=== PATIENT | female | born 1965 | race Two or more races ===

== ENCOUNTER 2020-07-17 09:46 | Outpatient (REF) | payer OTHER, SELFPAY | END 2020-07-17 09:47 | disposition home or self-care (01) | LOC: HO.MDS 09:46 | PROVIDERS: PCP Internal Medicine; Visit Provider Hospitalist | DX: J45.40 Moderate persistent asthma, uncomplicated (principal) | CPT/HCPCS: 96372 ==

== ENCOUNTER 2020-08-15 10:46 | Outpatient (REF) | payer OTHER, SELFPAY | END 2020-08-15 10:47 | disposition home or self-care (01) | LOC: HO.MDS 10:46 | PROVIDERS: PCP Internal Medicine; Visit Provider Hospitalist | DX: J45.909 Unspecified asthma, uncomplicated (principal) | CPT/HCPCS: 96372; J2357 ==

== ENCOUNTER 2020-09-12 | Outpatient (REF) | payer OTHER, SELFPAY | END 2020-09-12 00:01 | disposition home or self-care (01) | LOC: HO.MDS | PROVIDERS: PCP Internal Medicine; Visit Provider Hospitalist | DX: J45.40 Moderate persistent asthma, uncomplicated (principal) | CPT/HCPCS: 96372; J2357 ==

== ENCOUNTER → 2020-09-19 12:55 | Outpatient (BNVA) | payer OTHER, SELFPAY | PROVIDERS: PCP Internal Medicine; Referring Provider Internal Medicine; Visit Provider Hospitalist | DX: J45.40 Moderate persistent asthma, uncomplicated (principal); J30.9 Allergic rhinitis, unspecified; R05 Cough | CPT/HCPCS: 99212 ==

== ENCOUNTER 2020-10-17 13:44 | Outpatient (REF) | payer OTHER, SELFPAY | END 2020-10-17 13:45 | disposition home or self-care (01) | LOC: HO.MDS 13:44 | PROVIDERS: PCP Internal Medicine; Visit Provider Hospitalist | DX: J45.40 Moderate persistent asthma, uncomplicated (principal) | CPT/HCPCS: 96372; J2357 ==

== ENCOUNTER 2020-11-14 12:49 | Outpatient (REF) | payer OTHER, SELFPAY | END 2020-11-14 12:50 | disposition home or self-care (01) | LOC: HO.MDS 12:49 | PROVIDERS: PCP Internal Medicine; Visit Provider Hospitalist | DX: J45.40 Moderate persistent asthma, uncomplicated (principal) | CPT/HCPCS: 96372; J2357 ==

== ENCOUNTER 2020-12-12 13:11 | Outpatient (REF) | payer OTHER, SELFPAY | END 2020-12-12 13:12 | disposition home or self-care (01) | LOC: HO.MDS 13:11 | PROVIDERS: PCP Internal Medicine; Visit Provider Hospitalist | DX: J45.40 Moderate persistent asthma, uncomplicated (principal) | CPT/HCPCS: 96372; J2357 ==

== ENCOUNTER 2021-01-09 12:49 | Outpatient (REF) | payer OTHER, SELFPAY | END 2021-01-09 12:50 | disposition home or self-care (01) | LOC: HO.MDS 12:49 | PROVIDERS: PCP Internal Medicine; Visit Provider Hospitalist | DX: J45.40 Moderate persistent asthma, uncomplicated (principal) | CPT/HCPCS: 96372; J2357 ==

== ENCOUNTER 2021-01-19 07:10 | Outpatient (REF) | payer OTHER, SELFPAY ==
[2021-01-19 08:56] LABS: Alanine Aminotransferase 48 U/L (0-31); Albumin Level 4.2 g/dL (3.5-5.0); Alkaline Phosphatase 100 U/L (39-117); Anion Gap 13 (12-20); Aspartate Amino Transferase 25 U/L (5-31); Bilirubin Total 0.3 mg/dL (0.0-1.0); Blood Urea Nitrogen 14 mg/dL (9-16); Calcium 8.8 mg/dL (8.4-10.2); Carbon Dioxide 26 mmol/L (22-29); Chloride 105 mmol/L (96-108); Cholesterol 241 mg/dL; Estimated Glomerular Filt Rate 60; Glucose Fasting 113 mg/dL (60-99); HDL Cholesterol 39 mg/dL; LDL Cholesterol Calculated 165 mg/dl; Potassium 4.4 mmol/L (3.3-5.1); Sodium 140 mmol/L (135-145); Total Protein 7.2 g/dL (6.5-8.0); Triglycerides 186 mg/dL
== END 2021-01-19 07:11 | disposition home or self-care (01) ==
LOC: HO.LAB 07:10
PROVIDERS: PCP Internal Medicine; Visit Provider Internal Medicine
DX: E78.2 Mixed hyperlipidemia (principal); E78.5 Hyperlipidemia, unspecified
CPT/HCPCS: 36415; 80053; 80061

== ENCOUNTER → 2021-01-22 12:58 | Outpatient (BNVA) | payer OTHER, SELFPAY | PROVIDERS: PCP Internal Medicine; Visit Provider Hospitalist | DX: J45.50 Severe persistent asthma, uncomplicated (principal); R05 Cough; J30.9 Allergic rhinitis, unspecified | CPT/HCPCS: 99212 ==

== ENCOUNTER 2021-02-06 12:51 | Outpatient (REF) | payer OTHER, SELFPAY | END 2021-02-06 12:52 | disposition home or self-care (01) | LOC: HO.MDS 12:51 | PROVIDERS: PCP Internal Medicine; Visit Provider Hospitalist | DX: J45.40 Moderate persistent asthma, uncomplicated (principal) | CPT/HCPCS: 96372; J2357 ==

== ENCOUNTER 2021-03-06 12:56 | Outpatient (REF) | payer OTHER, SELFPAY | END 2021-03-06 12:57 | disposition home or self-care (01) | LOC: HO.MDS 12:56 | PROVIDERS: PCP Internal Medicine; Visit Provider Hospitalist | DX: J45.40 Moderate persistent asthma, uncomplicated (principal) | CPT/HCPCS: 96372; J2357 ==

== ENCOUNTER 2021-03-13 10:09 | Outpatient (REF) | payer OTHER, SELFPAY ==
--- NOTE | ~2021-03-13 | XR_ITS ---
EXAMINATION: XR CHEST CLINICAL INFORMATION: Cough COMPARISON: 05/27/2019 TECHNIQUE: 2 views of the chest were obtained. FINDINGS: Normal symmetric lung volumes. No parenchymal consolidation. No pleural effusion. No pneumothorax. Cardiomediastinal silhouette and pulmonary vascularity are within normal limits. No acute osseous abnormalities. XR/XR chest 2V IMPRESSION: Unremarkable examination.
[2021-03-13 11:30] LABS: MANUAL DIFF FLAG NO
[2021-03-13 11:42] LABS: Basophils Absolute Auto 0.1 X10*3/uL (0.0-0.2); Basophils Percent Auto 1.4 % (0-2); Eosinophils Absolute Auto 0.7 X10*3/uL (0.0-0.4); Eosinophils Percent Auto 8.2 % (0-4); Hemoglobin 13.4 g/dl (12.0-16.0); Imm Gran Abs Auto 0.02 X10*3/uL (0.00-0.03); Imm Gran Pct Auto 0.2 % (0.0-0.4); Lymphocytes Absolute Auto 3.8 X10*3/uL (1.2-4.9); Lymphocytes Percent Auto 47.6 % (20-40); Mean Corpuscular HGB Conc 32.7 g/dl (31.0-35.0); Mean Corpuscular Hemoglobin 29.5 pg (27.0-33.0); Mean Corpuscular Volume 90.3 fL (80-98); Mean Platelet Volume 9.6 fL (9.4-12.3); Monocytes Absolute Auto 0.5 X10*3/uL (0.1-1.2); Monocytes Percent Auto 6.5 % (2-11); Neutrophils Absolute Auto 2.9 X10*3/uL (2.0-8.3); Neutrophils Percent Auto 36.1 % (45-73); Platelet Count 301 X10*3/uL (160-400); Red Blood Count 4.54 X10*6/uL (4.20-5.50)
[2021-03-13 12:25] LABS: Erythrocyte Sedimentation Rate 16 MM/HR (0-20)
[2021-03-17 19:12] LABS: IgA 203 mg/dL (47-310); IgG 1401 mg/dL (600-1640); IgM 69 mg/dL (50-300)
[2021-03-18 05:42] LABS: Immunoglobulin E 412 kU/L (<OR=114)
== END 2021-03-13 10:10 | disposition home or self-care (01) ==
LOC: HO.XRAY 10:09
PROVIDERS: PCP Internal Medicine; Visit Provider Hospitalist
DX: J45.51 Severe persistent asthma with (acute) exacerbation (principal); J30.9 Allergic rhinitis, unspecified; Z79.899 Other long term (current) drug therapy
CPT/HCPCS: 36415; 71046; 82784; 82785; 85025; 85652; 99212

== ENCOUNTER 2021-03-22 10:29 | Emergency (ER) | payer OTHER, SELFPAY ==
--- NOTE | ~2021-03-22 | XR_ITS ---
EXAMINATION: XR CHEST CLINICAL INFORMATION: Cough. History of asthma COMPARISON: Chest 03/13/2021 TECHNIQUE: Frontal view of the chest was obtained. FINDINGS: No significant abnormality is noted involving the heart, lungs, mediastinum, bony thorax or soft tissues. XR/XR chest 1V IMPRESSION: Unremarkable chest examination.
[2021-03-22 11:12] VITALS: BP 136/95; PULSE 92; RESP 18; TEMP 36.6; O2SAT 97; BMI 28.1
--- NOTE | 2021-03-22 11:17 | ECG_ITS ---
Test Reason : CHEST PAIN Blood Pressure : / mmHG Vent. Rate : 066 BPM Atrial Rate : 066 BPM P-R Int : 148 ms QRS Dur : 082 ms QT Int : 404 ms P-R-T Axes : 031 013 032 degrees QTc Int : 423 ms Normal sinus rhythm Normal ECG When compared with ECG of 27-MAY-2019 21:58, No significant change was found Referred By: Generic ED Physician Electronically Signed By:JOSE JOHN
--- NOTE | 2021-03-22 11:34 | ED_ITS ---
HPI - Chest Pain General Chief Complaint: Chest Pain Stated Complaint: chest pain for 3 days Time Seen by Provider: 03/22/21 11:23 Source: patient Mode of arrival: ambulatory Limitations: no limitations History of Present Illness HPI narrative: 55 y/o female with history of moderate persistent asthma, allergies, anxiety, depression presenting with burning chest pain for the last 1 week. It occurs mostly at night when she lays down and after she eats. It starts in her chest and radiates up into her neck and throat. She has never had pain like this before. She tried TUMS with no relief. She also reports increased dry cough at night. She has had chills but no fevers. No N/V/D or abdominal pain. No SOB. She was recently seen by Dr. Carbajal, her Mechanical Designer on 03/13, and she was reporting similar symptoms at that time. She was started on Prednisone taper and Augmentin for asthma exacerbation. MD complaint: chest pain Pertinent past history: asthma Onset (ago): day(s) Timing of current episode: episodic Prior episodes: No Onset: after eating Pain location: substernal Related Data Home Medications Medication Instructions Recorded Confirmed buspirone 10 mg tablet 10 mg PO TID 09/01/20 03/13/21 fluticasone propionate 110 INHALATION 09/01/20 03/13/21 mcg/actuation HFA aerosol inhaler fluticasone propionate 50 1 spray INTRANASAL DAILY 09/01/20 03/13/21 mcg/actuation nasal spray,suspension omalizumab 150 mg/mL subcutaneous mg SUBCUT Q4W 09/01/20 03/13/21 syringe topiramate 50 mg tablet 50 mg PO BID 09/01/20 03/13/21 albuterol sulfate mg INHALATION Q8H PRN 09/19/20 03/13/21 cetirizine 10 mg tablet mg PO 09/19/20 03/13/21 montelukast 10 mg tablet 10 mg PO DAILY 09/19/20 03/13/21 sumatriptan succinate 50 mg tablet mg PO 09/19/20 03/13/21 umeclidinium 62.5 mcg/actuation INHALATION 09/19/20 03/13/21 blister powder for inhalation amitriptyline 25 mg tablet 75 mg PO BEDTIME tab 12/16/20 03/13/21 escitalopram oxalate 10 mg tablet 20 mg PO DAILY tab 12/16/20 03/13/21 Previous Rx's Medication Instructions Recorded epinephrine 0.3 mg/0.3 mL 0.3 mg IM Q10M PRN 30 Days #2 ea 09/19/20 injection, auto-injector fluticasone fur. 200 mcg-umeclid 1 inh INHALATION DAILY 30 Days #60 01/22/21 62.5 mcg-vilant 25 mcg ea inhalat.powder azithromycin 500 mg tablet 500 mg PO DAILY 3 Days #3 tab 02/05/21 prednisone 20 mg tablet 20 mg PO DAILY 10 Days #15 tab 02/05/21 amoxicillin 875 mg-potassium 1 tab PO BID 10 Days #20 tab 03/13/21 clavulanate 125 mg tablet fluticasone furoate 200 1 inh INHALATION DAILY 30 Days #60 03/13/21 mcg-vilanterol 25 mcg/dose ea inhalation powder prednisone 20 mg tablet 20 mg PO DAILY 10 Days #15 tab 03/13/21 prednisone 20 mg tablet 20 mg PO DAILY 10 Days #15 tab 03/13/21 doxycycline hyclate 100 mg capsule 100 mg PO BID 10 Days #20 cap 03/16/21 dupilumab 300 mg/2 mL subcutaneous 300 mg SUBCUT Q2W 365 Days #56 ml 03/18/21 syringe pantoprazole [Protonix] 40 mg PO DAILY #30 tab 03/22/21 Allergies Allergy/AdvReac Type Severity Reaction Status Date / Time hydroxyzine [HYDROXYZINE] Allergy Unknown THROAT Verified 03/13/21 10:30 TIGHT , dry mouth Penicillins [PENICILLINS] Allergy Unknown RASH Verified 03/13/21 10:30 pollen extracts [POLLEN] Allergy Unknown THROAT Verified 03/13/21 10:30 GETS ITCHY tramadol Allergy Unknown sleepiness Verified 03/13/21 10:30 Review of Systems Review of Systems: Constitutional: No Fever, + Chills ENT/Mouth: No sore throat, No Rhinorrhea, No Swallowing Difficulty Eyes: No Eye Pain, No Swelling, No Redness Cardiovascular: + Chest Pain, No SOB, No Orthopnea, No Edema Respiratory: + Cough, No Sputum, No Wheezing, No dyspnea Gastrointestinal: No Nausea, No Vomiting, No Diarrhea, No abdominal Pain, No Hematochezia, No Melena Genitourinary: No Dysuria, No Urinary Frequency, No Hematuria Musculoskeletal: No joint pain, No Myalgias Skin: No Skin Lesions, No rash Neuro: No Weakness, No Numbness, No Dizziness, No Headache Psych: No Anxiety/Panic, No Depression Heme/Lymph: No Bruising, No Lymphadenopathy Endocrine: No Polyuria, No Polydipsia [facility] Past Medical History Attestation statement: The following information was validated with the patient. Medical History Asthma Chronic allergic rhinitis Cough Depression with anxiety Mixed hyperlipidemia Moderate persistent asthma Surgical History History of removal of cyst Family History Family History Father CAD (coronary artery disease) Mother Chronic mental illness Stroke Paternal Grandmother Cancer Paternal Aunt Liver cancer Sister Multiple sclerosis Brother ALS (amyotrophic lateral sclerosis) Sister Schizophrenia Family/Other FH: mental illness Social History Social History (Updated 03/13/21 @ 10:24 by Alice Wynn MA) Alcohol intake: never Patient Tobacco Use Status: Never used Tobacco Use of substances other than those prescribed or required for medical reasons: No Advance Directives: Yes Advance Directives Information Provided: Yes Advance Directives on File: No Patient : No Physical Exam Vital Signs: Vital Signs: Last Vital Signs Temp 97.9 F 03/22/21 11:12 Pulse 73 03/22/21 11:58 Resp 18 03/22/21 11:12 BP 116/82 03/22/21 11:58 Pulse Ox 96 03/22/21 11:58 Body Mass Index 28.1 Appearance: Alert. Oriented X3. No acute distress. Eyes: Pupils equal, round and reactive to light. ENT: Pharynx normal. Neck: Normal inspection. Neck supple. CVS: Normal heart rate and rhythm. Pulses normal. Chest wall with tenderness parasternally Respiratory: No respiratory distress. Breath sounds normal. No wheezing. Abdomen: Soft and nontender. +BS x4 Skin: Skin warm and dry. Normal skin color. Normal skin turgor. No rashes. Extremities: No lower extremity edema. Negative Mabel's sign. Neuro: Oriented X 3. No motor deficit. No sensory deficit. Course Course Course Narrative: 55 y/o female presenting with burning chest pain for 1+ week. No SOB, lungs are clear. Pain somewhat reproducible on exam and seems to be related to food intake and acid reflux when laying down. Will need to get cardiac workup to r/o ACS but this is very unlikely given her clinical pres entation. Will give trial of GI cocktail and see if pain improves. Reevaluation(s) Reevaluation #1: EKG is normal. Lab workup is unremarkable, including negative troponin. She is feeling better. Her pain is most likely related to GERD and acdi reflux. Will plan to start a PPI and have her follow up with GI for further evaluation. She is stable for discharge home. Patient agrees with plan. MDM - Chest Pain Medical Records Data Attestation: I reviewed the patient's medical records. Lab Data Attestation: I reviewed the patient's lab results. Result diagrams: 03/22/21 12:09 03/22/21 12:09 Labs: Lab Results 03/22/21 03/22/21 03/22/21 Range/Units 12:09 12:09 12:09 WBC 9.8 (4.8-10.8) X10*3/uL RBC 4.53 (4.20-5.50) X10*6/uL Hgb 13.6 (12.0-16.0) g/dl Hct 40.2 (37-47) % MCV 88.7 (80-98) fL MCH 30.0 (27.0-33.0) pg MCHC 33.8 (31.0-35.0) g/dl RDW 13.2 (11.0-16.0) % Plt Count 301 (160-400) X10*3/uL MPV 9.3 L (9.4-12.3) fL Immature Gran % (Auto) 0.6 H (0.0-0.4) % Neut % (Auto) 52.1 (45-73) % Lymph % (Auto) 34.5 (20-40) % [place] % (Auto) 7.7 (2-11) % Eos % (Auto) 4.2 H (0-4) % Baso % (Auto) 0.9 (0-2) % Lymph # (Auto) 3.4 (1.2-4.9) X10*3/uL [place] # (Auto) 0.8 (0.1-1.2) X10*3/uL Eos # (Auto) 0.4 (0.0-0.4) X10*3/uL Baso # (Auto) 0.1 (0.0-0.2) X10*3/uL Abs Immat Gran (auto) 0.06 H (0.00-0.03) X10*3/uL Absolute Neuts (auto) 5.1 (2.0-8.3) X10*3/uL Absolute Nucleated RBC 0.000 (0.0-0.012) X10*3/uL Nucleated RBC % (auto) 0.0 (0.0-0.2) /100WBC Sodium 140 (135-145) mmol/L Potassium 4.2 (3.3-5.1) mmol/L Chloride 105 (96-108) mmol/L Carbon Dioxide 24 (22-29) mmol/L Anion Gap 15 (12-20) BUN 17 H (9-16) mg/dL Creatinine 0.83 (0.5-1.4) mg/dL Estim Creat Clear Calc 84.8 Estimated GFR > 60 Random Glucose 87 (60-115) mg/dL Calcium 9.0 (8.4-10.2) mg/dL Magnesium 2.5 (1.6-2.6) mg/dL Total Bilirubin 0.5 (0.0-1.0) mg/dL Direct Bilirubin 0.2 (0.0-0.5) mg/dL AST 28 (5-31) U/L ALT 65 H (0-31) U/L Alkaline Phosphatase 115 (39-117) U/L Troponin I High Sens < 3.5 (<3.5-17.0) ng/L Total Protein 7.3 (6.5-8.0) g/dL Albumin 4.3 (3.5-5.0) g/dL COVID-19 ([facility]) (Negative) COVID-19 Clin Com 03/22/21 Range/Units 12:09 WBC (4.8-10.8) X10*3/uL RBC (4.20-5.50) X10*6/uL Hgb (12.0-16.0) g/dl Hct (37-47) % MCV (80-98) fL MCH (27.0-33.0) pg MCHC (31.0-35.0) g/dl RDW (11.0-16.0) % Plt Count (160-400) X10*3/uL MPV (9.4-12.3) fL Immature Gran % (Auto) (0.0-0.4) % Neut % (Auto) (45-73) % Lymph % (Auto) (20-40) % [place] % (Auto) (2-11) % Eos % (Auto) (0-4) % Baso % (Auto) (0-2) % Lymph # (Auto) (1.2-4.9) X10*3/uL [place] # (Auto) (0.1-1.2) X10*3/uL Eos # (Auto) (0.0-0.4) X10*3/uL Baso # (Auto) (0.0-0.2) X10*3/uL Abs Immat Gran (auto) (0.00-0.03) X10*3/uL Absolute Neuts (auto) (2.0-8.3) X10*3/uL Absolute Nucleated RBC (0.0-0.012) X10*3/uL Nucleated RBC % (auto) (0.0-0.2) /100WBC Sodium (135-145) mmol/L Potassium (3.3-5.1) mmol/L Chloride (96-108) mmol/L Carbon Dioxide (22-29) mmol/L Anion Gap (12-20) BUN (9-16) mg/dL Creatinine (0.5-1.4) mg/dL Estim Creat Clear Calc Estimated GFR Random Glucose (60-115) mg/dL Calcium (8.4-10.2) mg/dL Magnesium (1.6-2.6) mg/dL Total Bilirubin (0.0-1.0) mg/dL Direct Bilirubin (0.0-0.5) mg/dL AST (5-31) U/L ALT (0-31) U/L Alkaline Phosphatase (39-117) U/L Troponin I High Sens (<3.5-17.0) ng/L Total Protein (6.5-8.0) g/dL Albumin (3.5-5.0) g/dL COVID-19 ([facility]) Negative (Negative) COVID-19 Clin Com See Note ECG Data ECG #1: Attestation: I personally reviewed and interpreted this ECG as follows: ECG interpretation date: 03/22/21 ECG interpretation time: 12:23 Interpretation: normal sinus rhythm, HR 66 bpm, normal DC interval, normal QTc, no ST segment elevations or depressions. Scores Heart Score History: -0- slightly suspicious ECG: -0- normal Age: -1- >45 - <65 Risk factory: -0- no risk factors known Troponin: -0- < or = normal limit Score: 1 Risk: 1.7% Critical Care Time Critical Care Time Critical Care Time: No Discharge Plan Discharge Clinical Impression: Chest pain due to GERD Patient Disposition: Home, Self-Care Instructions: Gastroesophageal Reflux Disease (ED), Noncardiac Chest Pain (ED) Additional Instructions: Your lab workup today was normal. Your chest x-ray was normal. Your EKG was normal. Your pain is most likely due to reflux of stomach acid up into your esophagus. Start taking the prescribed medication as directed. Avoid foods high in acid. Recommend following up with GI doctor for further evaluation. If you have worsening pain or any other concerning symptoms come back to the ER for further evaluation. Prescriptions: New pantoprazole [Protonix] 40 mg tablet,delayed release (DR/EC) 40 mg PO DAILY Qty: 30 RF: 0 No Action azithromycin 500 mg tablet 500 mg PO DAILY 3 Days Qty: 3 RF: 0 prednisone 20 mg tablet 20 mg PO DAILY 10 Days Qty: 15 RF: 0 doxycycline hyclate 100 mg capsule 100 mg PO BID 10 Days Qty: 20 RF: 0 Dupixent Syringe 300 mg/2 mL syringe 300 mg subcut Q2W 365 Days Qty: 56 RF: 0 fluticasone propionate 50 mcg/actuation spray,suspension 1 spray intranasal DAILY RF: 0 Xolair 150 mg/mL syringe subcut Q4W RF: 0 topiramate 50 mg tablet 50 mg PO BID RF: 0 buspirone 10 mg tablet 10 mg PO TID RF: 0 Flovent HFA 110 mcg/actuation HFA aerosol inhaler inhalation RF: 0 umeclidinium 62.5 mcg/actuation blister with device inhalation RF: 0 escitalopram oxalate 10 mg tablet 20 mg PO DAILY RF: 0 amitriptyline 25 mg tablet 75 mg PO BEDTIME RF: 0 Trelegy Ellipta 200-62.5-25 mcg blister with device 1 inh inhalation DAILY 30 Days Qty: 60 RF: 12 sumatriptan succinate 50 mg tablet PO RF: 0 montelukast 10 mg tablet 10 mg PO DAILY RF: 0 cetirizine 10 mg tablet PO RF: 0 albuterol sulfate 2.5 mg /3 mL (0.083 %) solution for nebulization inhalation Q8H PRNRF: 0 epinephrine [EpiPen 2-Omega] 0.3 mg/0.3 mL auto-injector 0.3 mg IM Q10M PRN (Reason: anaphylaxis) 30 Days Qty: 2 RF: 6 Breo Ellipta 200-25 mcg/dose blister with device 1 inh inhalation DAILY 30 Days Qty: 60 RF: 11 prednisone 20 mg tablet 20 mg PO DAILY 10 Days Qty: 15 RF: 0 prednisone 20 mg tablet 20 mg PO DAILY 10 Days Qty: 15 RF: 0 amoxicillin-pot clavulanate [Augmentin] 875-125 mg tablet 1 tab PO BID 10 Days Qty: 20 RF: 0 Referrals: Hunter Pierce MD [Physician] - 1 week
[2021-03-22 11:58] VITALS: BP 116/82; PULSE 73; O2SAT 96
[2021-03-22] MEDS: Magnesium Hydrox/Alum Hydrox 30 ML ORAL.SUSP PO (12:00)
[2021-03-22] MEDS: Omeprazole 40 MG CAPSULE.DR PO (12:01)
[2021-03-22] MEDS: Lidocaine HCl Viscous 2 % 15 ML SOLUTION MUCOUS MEM (12:01)
[2021-03-22 12:21] LABS: Basophils Absolute Auto 0.1 X10*3/uL (0.0-0.2); Basophils Percent Auto 0.9 % (0-2); Eosinophils Absolute Auto 0.4 X10*3/uL (0.0-0.4); Eosinophils Percent Auto 4.2 % (0-4); Hematocrit 40.2 % (37-47); Hemoglobin 13.6 g/dl (12.0-16.0); Imm Gran Abs Auto 0.06 X10*3/uL (0.00-0.03); Imm Gran Pct Auto 0.6 % (0.0-0.4); Lymphocytes Absolute Auto 3.4 X10*3/uL (1.2-4.9); Lymphocytes Percent Auto 34.5 % (20-40); MANUAL DIFF FLAG NO; Mean Corpuscular HGB Conc 33.8 g/dl (31.0-35.0); Mean Corpuscular Volume 88.7 fL (80-98); Mean Platelet Volume 9.3 fL (9.4-12.3); Monocytes Absolute Auto 0.8 X10*3/uL (0.1-1.2); Monocytes Percent Auto 7.7 % (2-11); Neutrophils Absolute Auto 5.1 X10*3/uL (2.0-8.3); Neutrophils Percent Auto 52.1 % (45-73); Platelet Count 301 X10*3/uL (160-400); Red Blood Count 4.53 X10*6/uL (4.20-5.50); Red Cell Distribution Width 13.2 % (11.0-16.0); White Blood Count 9.8 X10*3/uL (4.8-10.8)
[2021-03-22 12:41] LABS: COVID-19 Test Negative (Negative)
[2021-03-22 12:44] LABS: Alanine Aminotransferase 65 U/L (0-31); Albumin Level 4.3 g/dL (3.5-5.0); Alkaline Phosphatase 115 U/L (39-117); Anion Gap 15 (12-20); Aspartate Amino Transferase 28 U/L (5-31); Bilirubin Direct 0.2 mg/dL (0.0-0.5); Bilirubin Total 0.5 mg/dL (0.0-1.0); Blood Urea Nitrogen 17 mg/dL (9-16); Carbon Dioxide 24 mmol/L (22-29); Chloride 105 mmol/L (96-108); Creatinine Clr Calc Pharmacy 84.8; Estimated Glomerular Filt Rate > 60; Glucose Random 87 mg/dL (60-115); Magnesium 2.5 mg/dL (1.6-2.6); Potassium 4.2 mmol/L (3.3-5.1); Sodium 140 mmol/L (135-145); Total Protein 7.3 g/dL (6.5-8.0)
[2021-03-22 12:50] LABS: Troponin-I High Sensitivity < 3.5 ng/L (<3.5-17.0)
[2021-03-22 13:20] VITALS: BP 111/68; PULSE 70; PULSE 71; RESP 17; O2SAT 96
== END 2021-03-22 13:25 | disposition home or self-care (01) ==
PROVIDERS: Physician Assistant; Emergency Provider Emergency Medicine Emergency Medical Services; PCP Internal Medicine
DX: K21.9 Gastro-esophageal reflux disease without esophagitis (principal); J45.40 Moderate persistent asthma, uncomplicated; Z79.899 Other long term (current) drug therapy; Z20.822 Contact with and (suspected) exposure to COVID-19
CPT/HCPCS: 36415; 71045; 80048; 80076; 83735; 84484; 85025; 87635; 93005; 99283; 99284

== ENCOUNTER → 2021-03-27 13:08 | Outpatient (BNVA) | payer OTHER, SELFPAY | PROVIDERS: PCP Internal Medicine; Visit Provider Hospitalist ==

== ENCOUNTER → 2021-03-30 13:26 | Outpatient (BNVA) | payer OTHER, SELFPAY | PROVIDERS: PCP Internal Medicine; Visit Provider Hospitalist | DX: J45.40 Moderate persistent asthma, uncomplicated (principal); Z79.51 Long term (current) use of inhaled steroids | CPT/HCPCS: 99211 ==

== ENCOUNTER → 2021-04-10 09:55 | Outpatient (BNVA) | payer OTHER, SELFPAY | PROVIDERS: PCP Internal Medicine; Visit Provider Hospitalist | DX: J45.51 Severe persistent asthma with (acute) exacerbation (principal); J30.9 Allergic rhinitis, unspecified; K21.00 Gastro-esophageal reflux disease with esophagitis, without bleeding; R05 Cough | CPT/HCPCS: 99212 ==

== ENCOUNTER 2021-04-30 11:59 | Outpatient (REF) | payer OTHER, SELFPAY ==
--- NOTE | ~2021-04-30 | MM_ITS ---
EXAMINATION: MM SCREENING DIGITAL BREAST TOMOSYNTHESIS, BILATERAL CLINICAL INFORMATION: Screening. Asymptomatic. The lifetime risk of breast cancer based on the Tyrer-Cuzick Model is 11%. COMPARISON: Mammography: 04/01/2020, 02/07/2019, 02/04/2018 TECHNIQUE: Digital breast tomosynthesis is performed in both the craniocaudal and mediolateral oblique views along with computer-aided detection (CAD). Synthesized 2D images are generated from the tomosynthesis. FINDINGS: The breasts are almost entirely fatty (ACR BI-RADS breast composition Category a). There are no significant masses, abnormal calcifications, or other abnormalities. Background stromal markings are stable. No significant changes. MM/MM tomosynthesis screening BI IMPRESSION: No mammographic evidence of malignancy. ASSESSMENT: BI-RADS 1: Negative RECOMMENDATION: Routine annual mammography screening. This patient's information was entered into a reminder system with a target due date for their next mammogram.
== END 2021-04-30 12:00 | disposition home or self-care (01) ==
LOC: HO.MAMMO 11:59
PROVIDERS: Visit Provider Internal Medicine
DX: Z12.31 Encounter for screening mammogram for malignant neoplasm of breast (principal)
CPT/HCPCS: 77063; 77067

== ENCOUNTER → 2021-06-12 09:42 | Outpatient (BNVA) | payer OTHER, SELFPAY | PROVIDERS: PCP Internal Medicine; Visit Provider Hospitalist | DX: J45.51 Severe persistent asthma with (acute) exacerbation (principal); R05 Cough; J30.9 Allergic rhinitis, unspecified; K21.00 Gastro-esophageal reflux disease with esophagitis, without bleeding | CPT/HCPCS: 99212 ==

== ENCOUNTER 2021-08-07 06:35 | Outpatient (REF) | payer OTHER, SELFPAY ==
[2021-08-07 08:06] LABS: Alanine Aminotransferase 45 U/L (0-31); Albumin Level 4.4 g/dL (3.5-5.0); Alkaline Phosphatase 105 U/L (39-117); Anion Gap 12 (12-20); Aspartate Amino Transferase 26 U/L (5-31); Bilirubin Total 0.5 mg/dL (0.0-1.0); Blood Urea Nitrogen 19 mg/dL (9-16); Carbon Dioxide 26 mmol/L (22-29); Chloride 107 mmol/L (96-108); Cholesterol 210 mg/dL; Estimated Glomerular Filt Rate > 60; Glucose Fasting 112 mg/dL (60-99); HDL Cholesterol 36 mg/dL; LDL Cholesterol Calculated 143 mg/dl; Potassium 4.2 mmol/L (3.3-5.1); Sodium 141 mmol/L (135-145); Total Protein 7.4 g/dL (6.5-8.0); Triglycerides 158 mg/dL
[2021-08-08 13:36] LABS: Antibody to SS-A Antigen <1.0 NEG AI (<1.0 NEG); Antibody to SS-B Antigen <1.0 NEG AI (<1.0 NEG)
== END 2021-08-07 06:36 | disposition home or self-care (01) ==
LOC: HO.LAB 06:35
PROVIDERS: Hospitalist; PCP Internal Medicine; Visit Provider Internal Medicine
DX: E78.5 Hyperlipidemia, unspecified (principal); E78.2 Mixed hyperlipidemia; J45.50 Severe persistent asthma, uncomplicated; R05.9 Cough, unspecified
CPT/HCPCS: 36415; 80048; 80053; 80061; 86235

== ENCOUNTER → 2021-09-17 12:58 | Outpatient (BNVA) | payer OTHER, SELFPAY | PROVIDERS: PCP Internal Medicine; Visit Provider Hospitalist | DX: J45.50 Severe persistent asthma, uncomplicated (principal); R05.9 Cough, unspecified; J30.9 Allergic rhinitis, unspecified; K21.00 Gastro-esophageal reflux disease with esophagitis, without bleeding | CPT/HCPCS: 99212 ==

== ENCOUNTER 2021-12-31 12:58 | Outpatient (REF) | payer OTHER, SELFPAY ==
--- NOTE | ~2021-12-31 | XR_ITS ---
EXAMINATION: XR FOOT, LEFT CLINICAL INFORMATION: Pain. COMPARISON 09/05/2017. TECHNIQUE: AP, lateral, and oblique views of the left foot. FINDINGS: There is no evidence for an acute fracture or dislocation. Mild degeneration of the 1st MTP joint. Small cystic change in the distal 5th metatarsal head. Sclerotic margins. Overall has a benign appearance however this is felt to be a new finding compared to 2017. Etiology is indeterminate. Degenerative spurring at the insertion of the plantar aponeuroses and Achilles on the calcaneus. XR/XR foot LT 2V IMPRESSION: Some scattered areas of degenerative change are noted. There is a small cystic lesion with sclerotic margins in the distal 5th metatarsal which was not present in 2017. This could be a degenerative cyst versus other finding. There is some possible soft tissue increase over the area. Correlation recommended clinically. Consider MRI for full evaluation versus short-term follow-up to establish stability.
== END 2021-12-31 12:59 | disposition home or self-care (01) ==
LOC: HO.XRAY 12:58
PROVIDERS: PCP Internal Medicine; Visit Provider Internal Medicine
DX: M79.672 Pain in left foot (principal)
CPT/HCPCS: 73620

== ENCOUNTER → 2022-02-01 12:35 | Outpatient (BNVA) | payer OTHER, SELFPAY | PROVIDERS: Visit Provider Obstetrics & Gynecology | DX: Z01.419 Encounter for gynecological examination (general) (routine) without abnormal findings (principal) ==

== ENCOUNTER → 2022-04-15 12:51 | Outpatient (BNVA) | payer MEDICARE, MEDICAID, SELFPAY | PROVIDERS: PCP Internal Medicine; Visit Provider Hospitalist | DX: J45.50 Severe persistent asthma, uncomplicated (principal); J30.9 Allergic rhinitis, unspecified; K21.00 Gastro-esophageal reflux disease with esophagitis, without bleeding; Z79.899 Other long term (current) drug therapy | CPT/HCPCS: 99212 ==

== ENCOUNTER 2022-04-30 07:29 | Outpatient (REF) | payer MEDICARE, MEDICAID, SELFPAY ==
[2022-04-30 07:40] LABS: MANUAL DIFF FLAG NO
[2022-04-30 07:54] LABS: Basophils Absolute Auto 0.1 X10*3/uL (0.0-0.2); Basophils Percent Auto 1.1 % (0-2); Eosinophils Absolute Auto 0.6 X10*3/uL (0.0-0.4); Eosinophils Percent Auto 6.3 % (0-4); Hematocrit 41.2 % (37.0-47.0); Hemoglobin 13.5 g/dl (12.0-16.0); Imm Gran Abs Auto 0.02 X10*3/uL (0.00-0.03); Imm Gran Pct Auto 0.2 % (0.0-0.4); Lymphocytes Absolute Auto 4.2 X10*3/uL (1.2-4.9); Mean Corpuscular HGB Conc 32.8 g/dl (31.0-35.0); Mean Corpuscular Hemoglobin 29.8 pg (27.0-33.0); Mean Corpuscular Volume 90.9 fL (80.0-98.0); Mean Platelet Volume 9.5 fL (9.4-12.3); Monocytes Absolute Auto 0.7 X10*3/uL (0.1-1.2); Monocytes Percent Auto 7.4 % (2-11); Neutrophils Absolute Auto 3.5 x10*3/uL (2.0-8.3); Platelet Count 291 X10*3/uL (160-400); Red Blood Count 4.53 X10*6/uL (4.20-5.50); Red Cell Distribution Width 13.5 % (11.0-16.0); White Blood Count 9.1 X10*3/uL (4.8-10.8)
[2022-04-30 08:30] LABS: Alanine Aminotransferase 47 U/L (0-31); Albumin Level 4.4 g/dL (3.5-5.0); Alkaline Phosphatase 104 U/L (39-117); Anion Gap 11 (12-20); Aspartate Amino Transferase 34 U/L (5-31); Bilirubin Total 0.4 mg/dL (0.0-1.0); Blood Urea Nitrogen 17 mg/dL (9-16); Calcium 9.2 mg/dL (8.4-10.2); Carbon Dioxide 28 mmol/L (22-29); Chloride 106 mmol/L (96-108); Cholesterol 251 mg/dL; Estimated Glomerular Filt Rate 57; Glucose Fasting 120 mg/dL (60-99); HDL Cholesterol 43 mg/dL; LDL Cholesterol Calculated 173 mg/dl; Sodium 140 mmol/L (135-145); Total Protein 7.5 g/dL (6.5-8.0); Triglycerides 177 mg/dL
== END 2022-04-30 07:30 | disposition home or self-care (01) ==
LOC: HO.LAB 07:29
PROVIDERS: PCP Internal Medicine; Visit Provider Internal Medicine
DX: Z00.00 Encounter for general adult medical examination without abnormal findings (principal); G43.009 Migraine without aura, not intractable, without status migrainosus; E78.2 Mixed hyperlipidemia; E78.5 Hyperlipidemia, unspecified
CPT/HCPCS: 36415; 80053; 80061; 85025

== ENCOUNTER 2022-06-10 12:01 | Outpatient (REF) | payer OTHER, SELFPAY ==
--- NOTE | ~2022-06-10 | MM_ITS ---
EXAMINATION: MM SCREENING DIGITAL BREAST TOMOSYNTHESIS, BILATERAL CLINICAL INFORMATION: Screening. Asymptomatic. The lifetime risk of breast cancer based on the Tyrer-Cuzick Model is 12%. COMPARISON: Mammography: 04/30/2021, 04/01/2020, 02/26/2019 TECHNIQUE: Digital breast tomosynthesis is performed in both the craniocaudal and mediolateral oblique views along with computer-aided detection (CAD). Synthesized 2D images are generated from the tomosynthesis. Additional left MLO view is provided. FINDINGS: The breasts are almost entirely fatty (ACR BI-RADS breast composition Category a). Background stromal markings are normal. There is no significant mass, developing density, or architectural abnormality. No abnormal calcifications. The axilla and skin contours are unremarkable. MM/MM tomosynthesis screening BI IMPRESSION: No mammographic evidence of malignancy. ASSESSMENT: BI-RADS 1: Negative RECOMMENDATION: Routine annual mammography screening. This patient's information was entered into a reminder system with a target due date for their next mammogram.
== END 2022-06-10 12:02 | disposition home or self-care (01) ==
LOC: HO.MAMMO 12:01
PROVIDERS: PCP Internal Medicine; Visit Provider Obstetrics & Gynecology
DX: Z12.31 Encounter for screening mammogram for malignant neoplasm of breast (principal)
CPT/HCPCS: 77063; 77067

== ENCOUNTER 2023-01-03 06:11 | Outpatient (REF) | payer OTHER, SELFPAY ==
[2023-01-03 08:37] LABS: Alanine Aminotransferase 57 U/L (0-31); Albumin Level 4.4 g/dL (3.5-5.0); Alkaline Phosphatase 115 U/L (39-117); Anion Gap 13 (12-20); Aspartate Amino Transferase 38 U/L (5-31); Bilirubin Total 0.4 mg/dL (0.0-1.0); Blood Urea Nitrogen 14 mg/dL (9-16); Calcium 9.3 mg/dL (8.4-10.2); Carbon Dioxide 28 mmol/L (22-29); Chloride 105 mmol/L (96-108); Estimated Glomerular Filt Rate > 60; Glucose Fasting 117 mg/dL (60-99); Potassium 4.7 mmol/L (3.3-5.1); Sodium 141 mmol/L (135-145); Total Protein 7.3 g/dL (6.5-8.0)
== END 2023-01-03 06:12 | disposition home or self-care (01) ==
LOC: HO.LAB 06:11
PROVIDERS: PCP Internal Medicine; Visit Provider Internal Medicine
DX: Z00.00 Encounter for general adult medical examination without abnormal findings (principal)
CPT/HCPCS: 36415; 80053

== ENCOUNTER 2023-02-03 13:29 | Outpatient (REF) | payer OTHER, SELFPAY ==
[2023-02-10 07:24] LABS: HPV mRNA E6/E7 rflx Not Detected (Not Detected)
== END 2023-02-03 13:30 | disposition home or self-care (01) ==
LOC: HO.LNP 13:29
PROVIDERS: PCP Internal Medicine; Visit Provider Obstetrics & Gynecology
DX: Z01.419 Encounter for gynecological examination (general) (routine) without abnormal findings (principal); Z11.51 Encounter for screening for human papillomavirus (HPV); R32 Unspecified urinary incontinence
CPT/HCPCS: 87624; 88142

== ENCOUNTER → 2023-02-08 13:26 | Outpatient (BNVA) | payer OTHER, SELFPAY | PROVIDERS: PCP Internal Medicine; Visit Provider Hospitalist | DX: J45.40 Moderate persistent asthma, uncomplicated (principal); R05.9 Cough, unspecified; K21.00 Gastro-esophageal reflux disease with esophagitis, without bleeding; L80 Vitiligo | CPT/HCPCS: 99212 ==

== ENCOUNTER 2023-05-11 13:20 | Outpatient (AMB) | payer OTHER, SELFPAY ==
[2023-05-11 13:22] VITALS: BP 118/76; BMI 29.6
--- NOTE | 2023-05-11 13:22 | A.OFFPC_ITS ---
Vital Signs 05/11/23 13:22 Height 5 ft 8 in Weight 195 lb BMI 29.6 BP 118/76 Blood Pressure Location Lt brachial Position Sitting Intake Visit Reasons: depression Intake Note: Patient here for a follow up Depression Burnisher Required: No Accompanied by: Self / Same As Patient Allergies hydroxyzine [HYDROXYZINE] Allergy (Intermediate, Verified 05/11/23 13:28) THROAT TIGHT , dry mouth Penicillins [PENICILLINS] Allergy (Intermediate, Verified 05/11/23 13:28) RASH pollen extracts [POLLEN] Allergy (Intermediate, Verified 05/11/23 13:28) THROAT GETS ITCHY tramadol Allergy (Intermediate, Verified 05/11/23 13:28) sleepiness Medication List - Last Reconciled 05/11/23 by Alejandra Spicer MD amitriptyline 100 mg PO BEDTIME aripiprazole 10 mg PO DAILY budesonide-formoterol 160-4.5 mcg/actuation (Symbicort) 2 puffs inhalation BID 30 days buspirone 15 mg PO TID buspirone 15 mg PO TID cetirizine 10 mg PO DAILY 90 days clonazepam mg PO Dupixent Syringe (dupilumab) 300 mg (2 mL) subcut Q2W NS escitalopram oxalate 20 mg PO DAILY fluticasone propionate 50 mcg/actuation 1 spray intranasal DAILY 2 weeks sumatriptan succinate mg PO Tobacco use date assessed: 01/03/23 Dental Screening Dental Screen Date: 05/11/23 Did you have a dental visit in the last 12 months?: Yes Did you have a dental problem in the last 6 months where you did not have access to dental care?: No Was dental information given to patient?: Patient has dentist HPI HPI Comments History of Present Illness Details This is a 57-year-old female with mild recurrent major depression, anxiety, moderate persistent asthma migraines that comes today for follow-up on her conditions. Depression and anxiety has been stable with medications and this is follow by counseling and psychiatry. Asthma also stable with longstanding inhaler and this is follow by pulmonology. Migraines happen about 3 times a month. No chest pain or shortness of breath. Compliant with medications. COUNT INCLUDES THE [facility] Medical History (Updated 05/11/23 @ 13:33 by Alejandra Spicer MD) Asthma Chronic allergic rhinitis Cough Depression with anxiety SALOMON (generalized anxiety disorder) GERD (gastroesophageal reflux disease) Left foot pain Migraines Mild recurrent major depression Mixed hyperlipidemia Moderate persistent asthma Physical exam Vitiligo Surgical History History of removal of cyst Family History Father CAD (coronary artery disease) Mother Chronic mental illness Stroke Paternal Grandmother Cancer Paternal Aunt Liver cancer Sister Multiple sclerosis Brother ALS (amyotrophic lateral sclerosis) Sister Schizophrenia Family/Other FH: mental illness Social History Housing: Apartment Alcohol intake: never Patient Tobacco Use Status: Never used Tobacco e-Cigarette/Vaping Use: Never Used Second Hand Smoke Exposure: No service: No Current occupational status: unemployed Cognitive needs: Yes Hearing needs: No Vision needs: No Female Reproductive History Menstrual Age of Menarche: 11 Questionnaire Thrive Questionnaire Date Thrive assessed: 01/03/23 SALOMON-7 AMB Questionnaire SALOMON-7 Date SALOMON - 7 assessed: 01/03/23 Source: Developed by Drs. Kayden Eldridge, Chelsy Julian, Cholo Garcia and colleagues, with an educational jeannie from [employer]. Review of Systems Const All systems reviewed & are unremarkable except as noted in HPI and below Eyes Reports no additional complaints, Denies change in vision and Denies other visual disturbances Card Denies chest pain at rest, Denies chest pain with activity, Denies edema, Denies irregular heart rhythm, Denies claudication, Denies dyspnea, Denies dyspnea on exertion, Denies orthopnea, Denies paroxysmal nocturnal dyspnea and Denies slow heart rate Resp Denies cough, Denies dyspnea and Denies dyspnea on exertion GI Denies abdominal pain, Denies change in bowel habits, Denies excessive flatus, Denies nausea and Denies vomiting Denies urinary incontinence, Denies urinary hesitancy and Denies urinary urgency Musc Denies abnormal gait, Denies atrophy, Denies deformity and Denies limited range of motion Skin/Breast Denies bleeding lesions, Denies changing lesions and Denies rash Neuro Denies abnormal gait and Denies lack of coordination Physical exam (Primary Care) Vital Signs: Last Vital Signs BP 118/76 05/11/23 13:22 BMI result Body Mass Index 29.6 Tobacco/Smoking Status: Tobacco use Status Tobacco use date assessed 01/03/23 05/11/23 13:27 Patient Tobacco Use Status Never used Tobacco 05/11/23 13:27 e-Cigarette/Vaping Use Never Used 05/11/23 13:27 Thrive Assessment: Date of Thrive Assessment Date Thrive assessed 01/03/23 05/11/23 13:27 Eyes General: appearance normal, both eyes and all related structures Eyelids: Yes eyelids normal Conjunctivae: conjunctivae normal Neck Neck: Yes normal visual inspection and Yes supple Resp Effort & Inspection: normal respiratory effort Auscultation: clear to auscultation bilaterally Cardio Jugular venous distension: no JVD Rate: regular rate Rhythm: regular rhythm Heart sounds: S1 normal heart sound present and S2 normal heart sound present Extrem General: Yes full ROM Assessment and Plan Assessment & Plan (1) Mild recurrent major depression: Code(s): F33.0 - Major depressive disorder, recurrent, mild Plan: Continue Abilify. Follow-up with counseling and psychiatry. (2) Migraines: Code(s): G43.909 - Migraine, unspecified, not intractable, without status migrainosus Qualifiers: Migraine type: without aura Status migrainosus presence: without status migrainosus Intractability: not intractable Qualified Code(s): G43.009 - Migraine without aura, not intractable, without status migrainosus Plan: Continue sumatriptan as needed. Continue amitriptyline for migraine prophylaxis. (3) Moderate persistent asthma: Code(s): J45.40 - Moderate persistent asthma, uncomplicated Qualifiers: Asthma complication type: uncomplicated Qualified Code(s): J45.40 - Moderate persistent asthma, uncomplicated Plan: Continue Symbicort. Use rescue inhaler as needed. (4) SALOMON (generalized anxiety disorder): Code(s): F41.1 - Generalized anxiety disorder Plan: Continue buspirone. Follow-up with psychiatry. Orders: Orders Comprehensive [place]. Panel Fast Today G43.009 - Migraine without aura, not intractable, without status migrainosus Lipid Panel Today E78.5 - Hyperlipidemia, unspecified Referrals Rheumatology Referral M25.50 - Pain in unspecified joint Coding Level of Care Code Est Pt Level 4 (39125) Diagnoses Mild recurrent major depression F33.0 Migraines G43.009 Migraine type: without aura Status migrainosus presence: without status migrainosus Intractability: not intractable Moderate persistent asthma J45.40 Asthma complication type: uncomplicated SALOMON (generalized anxiety disorder) F41.1 Time Spent (min) 24
== END 2023-05-11 13:49 | disposition home or self-care (01) ==
PROVIDERS: Visit Provider Internal Medicine
DX: F33.0 Major depressive disorder, recurrent, mild (principal); G43.009 Migraine without aura, not intractable, without status migrainosus; J45.40 Moderate persistent asthma, uncomplicated; F41.1 Generalized anxiety disorder
CPT/HCPCS: 99214

== ENCOUNTER 2023-06-03 14:22 | Outpatient (REF) | payer OTHER, SELFPAY ==
--- NOTE | ~2023-06-03 | US_ITS ---
EXAMINATION: MM DIAGNOSTIC DIGITAL BREAST TOMOSYNTHESIS, BILATERAL US BREAST LIMITED, RIGHT MAMMOGRAPHY: CLINICAL INFORMATION: Area of skin discoloration left periareolar 7:00 location. Patient also due for bilateral screening. COMPARISON: Mammography: 06/10/2022, 04/30/2021, 04/01/2020, and dating back to 2013. TECHNIQUE: Digital breast tomosynthesis is performed in both the craniocaudal and mediolateral oblique views along with computer-aided detection (CAD). Synthesized 2D images are generated from the tomosynthesis. FINDINGS: The breasts are almost entirely fatty (ACR BI-RADS breast composition Category a). There are no suspicious masses, suspicious grouped calcifications, or areas of architectural distortion in either breast. The overall parenchymal pattern is stable from prior exams. There is no skin thickening or skin abnormality identified in either breast. Specifically, no abnormality identified in the left breast periareolar region, 7:00 axis. ULTRASOUND: CLINICAL INFORMATION: Area of skin discoloration left periareolar 7:00 location. Vitiligo ? COMPARISON: No relevant prior. TECHNIQUE: Targeted sonographic evaluation was performed using a high frequency linear transducer. Attention to the left inner quadrant 7:00 axis periareolar region was performed. Selected archived documentation. FINDINGS: RIGHT BREAST: There is a mixture of fatty and fibroglandular tissue. No suspicious mass is seen. There is no pathologic acoustic shadowing. There is no cystic abnormality. There is no skin lesion or skin thickening. US/US breast RT limited mamm only IMPRESSION: No findings suspicious for malignancy in either breast. No abnormality on mammography or sonography present or correlating with the area of discoloration left breast 7:00 axis periareolar region. Recommend clinical management. OVERALL ASSESSMENT: Mammography: BI-RADS 1 - Negative Ultrasound: BI-RADS 1 - Negative RECOMMENDATION: 1 year F/U Results were provided to the patient at time of visit by the technologist. This patient's information was entered into a reminder system with a target due date for their next mammogram.
== END 2023-06-03 14:23 | disposition home or self-care (01) ==
LOC: HO.MAMMO 14:22
PROVIDERS: PCP Internal Medicine; Visit Provider Internal Medicine
DX: N64.89 Other specified disorders of breast (principal)
CPT/HCPCS: 76642; 77062; 77066

== ENCOUNTER → 2023-06-03 14:24 | Outpatient (BNV) | payer OTHER, SELFPAY | PROVIDERS: PCP Internal Medicine; Visit Provider Radiology Diagnostic Radiology | DX: N63.24 Unspecified lump in the left breast, lower inner quadrant (principal); R92.8 Other abnormal and inconclusive findings on diagnostic imaging of breast | CPT/HCPCS: 76642; 77062; 77066 ==

== ENCOUNTER 2023-08-09 12:36 | Outpatient (AMB) | payer OTHER, SELFPAY ==
[2023-08-09 12:55] VITALS: BP 116/68; PULSE 96; TEMP 36.5; O2SAT 94; BMI 29.7
--- NOTE | 2023-08-09 12:55 | MHC.OFFVIS ---
Intake Vital Signs 08/09/23 12:55 Height 5 ft 8 in Weight 195 lb 5.273 oz BMI 29.7 BP 116/68 Blood Pressure Location Rt brachial Position Sitting Pulse 96 Pulse Source Pulse Oximeter Temp 97.7 F Temp Source Skin Pulse Oximetry (%) 94 Intake Visit Reasons: Joint Pain Intake Note: New pt presents today for polyarthralgia consult. She was referred by PCP, Dr Cee, states she was seen by our group in the past. C/o pain in multiple joints. Follows with neurology Dr Whiting, dermatology [facility] Lead Burner Apprentice Required: Yes Lead Burner Apprentice Name: Hyacinth [id number] Information Interpreted: clinical only Accompanied by: Self / Same As Patient Allergies hydroxyzine [HYDROXYZINE] Allergy (Intermediate, Verified 08/09/23 12:59) THROAT TIGHT , dry mouth Penicillins [PENICILLINS] Allergy (Intermediate, Verified 08/09/23 12:59) RASH pollen extracts [POLLEN] Allergy (Intermediate, Verified 08/09/23 12:59) THROAT GETS ITCHY tramadol Allergy (Intermediate, Verified 08/09/23 12:59) sleepiness Medication List - Last Reconciled 08/09/23 by Gilmar Cowart MD amitriptyline 100 mg PO BEDTIME aripiprazole 10 mg PO DAILY budesonide-formoterol 160-4.5 mcg/actuation (Symbicort) 2 puffs inhalation BID 30 days cetirizine 10 mg PO DAILY 90 days clobetasol 0.05% topical DAILY Dupixent Syringe (dupilumab) 300 mg (2 mL) subcut Q2W NS escitalopram oxalate 20 mg PO DAILY fluticasone propionate 50 mcg/actuation 1 spray intranasal DAILY 2 weeks sumatriptan succinate mg PO PRN tacrolimus 0.1% topical DAILY HPI HPI Comments History of Present Illness Details This is a 57-year-old female with fibromyalgia who presents as a new patient for me. Her main complaint is left lower back pain that intermittently radiates to her left lower extremity. Patient was evaluated by Pain Management in the past. She received injections. [facility] Medical History Vitiligo Left foot pain Physical exam SALOMON (generalized anxiety disorder) Mild recurrent major depression Migraines GERD (gastroesophageal reflux disease) Asthma Cough Chronic allergic rhinitis Moderate persistent asthma Mixed hyperlipidemia Depression with anxiety Surgical History History of removal of cyst Family History Father CAD (coronary artery disease) Mother Chronic mental illness Stroke Paternal Grandmother Cancer Paternal Aunt Liver cancer Sister Multiple sclerosis Brother ALS (amyotrophic lateral sclerosis) Sister Schizophrenia Family/Other FH: mental illness Social History Housing: Apartment Alcohol intake: never Patient Tobacco Use Status: Never used Tobacco e-Cigarette/Vaping Use: Never Used Second Hand Smoke Exposure: No service: No Current occupational status: unemployed Cognitive needs: Yes Hearing needs: No Vision needs: No Female Reproductive History Menstrual Age of Menarche: 11 Total pregnancies: 2 Number of Living Children: 1 Ab spontaneous: 1 Review of Systems Const Reports fatigue, Reports weakness and Reports weight gain ENT Reports dry mouth Card Reports dyspnea Resp Reports cough, Reports dyspnea and Reports wheezing GI Reports heartburn Musc Reports back pain, Reports arthralgias, Reports joint swelling and Reports stiffness Neuro Reports weakness Psych Reports anxiety and Reports depression Endo Reports fatigue Aller/Immun Reports wheezing Physical Exam Vital Signs: Last Vital Signs Temp 97.7 F 08/09/23 12:55 Pulse 96 08/09/23 12:55 BP 116/68 08/09/23 12:55 Pulse Ox 94 08/09/23 12:55 BMI result Body Mass Index 29.7 Const General: cooperative, healthy appearing and comfortable Nutritional Appearance: overweight Orientation/consciousness: patient oriented x3 Limitations: no limitations HEENT Head: Yes normocephalic and Yes atraumatic Resp Effort & Inspection: normal respiratory effort and able to speak in complete sentences Skin General skin exam: no rashes or lesions noted Neuro General: patient oriented x3 Extrem Other: No active synovitis Left lower lumbar paraspinal muscle tenderness Positive straight leg raise test on the left Assessment & Plan Assessment & Plan (1) Lumbar radiculopathy: Code(s): M54.16 - Radiculopathy, lumbar region Plan: 57-year-old female presents for evaluation of lower back pain. She has some features of radiculopathy. She received epidural injections by Pain Management in the past. Referred patient back to pain management Plan I spent 20 minutes reviewing patient's chart, evaluating patient, placing orders, counseling patient and documenting in the chart Orders: Referrals Pain Management Referral M54.16 - Radiculopathy, lumbar region Coding Level of Care Code New Pt Level 3 (40498) Diagnoses Lumbar radiculopathy M54.16
== END 2023-08-09 13:32 | disposition home or self-care (01) ==
PROVIDERS: PCP Internal Medicine; Visit Provider Student in an Organized Health Care Education/Training Program
DX: M54.16 Radiculopathy, lumbar region (principal)
CPT/HCPCS: 99203

== ENCOUNTER → 2023-08-09 12:36 | Outpatient (BNVA) | payer OTHER, SELFPAY | PROVIDERS: PCP Internal Medicine; Visit Provider Student in an Organized Health Care Education/Training Program | DX: M54.16 Radiculopathy, lumbar region (principal) | CPT/HCPCS: 99202 ==

== ENCOUNTER 2023-08-15 08:32 | Outpatient (REF) | payer OTHER, SELFPAY ==
[2023-08-15 09:33] LABS: Alanine Aminotransferase 62 U/L (0-31); Albumin Level 4.2 g/dL (3.5-5.0); Alkaline Phosphatase 109 U/L (39-117); Anion Gap 11 (12-20); Aspartate Amino Transferase 49 U/L (5-31); Bilirubin Total 0.5 mg/dL (0.0-1.0); Blood Urea Nitrogen 17 mg/dL (9-16); Calcium 9.9 mg/dL (8.4-10.2); Carbon Dioxide 27 mmol/L (22-29); Chloride 109 mmol/L (96-108); Cholesterol 257 mg/dL (<200); Estimated Glomerular Filt Rate > 60; Glucose Fasting 115 mg/dL (60-99); HDL Cholesterol 33 mg/dL (>40); LDL Cholesterol Calculated 182 mg/dL (<100); Sodium 143 mmol/L (135-145); Total Protein 7.7 g/dL (6.5-8.0); Triglycerides 210 mg/dL (<150)
== END 2023-08-15 08:33 | disposition home or self-care (01) ==
LOC: HO.LAB 08:32
PROVIDERS: PCP Internal Medicine; Visit Provider Internal Medicine
DX: G43.009 Migraine without aura, not intractable, without status migrainosus (principal); E78.5 Hyperlipidemia, unspecified
CPT/HCPCS: 36415; 80053; 80061

== ENCOUNTER 2023-08-23 12:52 | Outpatient (AMB) | payer OTHER, SELFPAY ==
--- NOTE | 2023-08-23 12:55 | A.OFFVIS_ITS ---
Intake Vital Signs 3 08/23/23 13:02 Height 5 ft 8 in Weight 193 lb BMI 29.3 BP 141/82 H Blood Pressure Location Rt brachial Position Sitting Pulse 97 Pulse Source Pulse Oximeter Pulse Oximetry (%) 99 Oxygen Delivery Method Room Air Intake Visit Reasons: LUMBAR RADICULOPATHY/CONFIRMED Intake Note: Pain today 04/18 Supervisor Instrument Mechanics Required: Yes Supervisor Instrument Mechanics Language: [employer] Name: Rohith#[id number] Yajaira [id number] Allergies hydroxyzine [HYDROXYZINE] Allergy (Intermediate, Verified 08/23/23 13:04) THROAT TIGHT , dry mouth Penicillins [PENICILLINS] Allergy (Intermediate, Verified 08/23/23 13:04) RASH pollen extracts [POLLEN] Allergy (Intermediate, Verified 08/23/23 13:04) THROAT GETS ITCHY tramadol Allergy (Intermediate, Verified 08/23/23 13:04) sleepiness HPI LUMBAR RADICULOPATHY/CONFIRMED 2 HPI0 Details Patient is a pleasant 57 years old female presents today for evaluation of chronic worsening back and left leg pain. She was seen in our Pain Management office in [address] Young. She failed prior conservative treatments with physical therapy and medication and subsequently underwent left L5 TFESI with partial pain relief. Patient reports injection was helpful for pain but she continued to have weakness in her left lower extremity. 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 Denies any recent trauma, injury or falls. Back pain is axial with facet mediated and radicular components as well as significant tenderness in the projection of left sacroiliac joint area. Mild tenderness on right SIJ. SLR testing reproduced left leg and back pain today, worse with dorsiflexion. Patient also has widespread body pain including multiple joints with history of polyarthralgia and fibromyalgia. Chronic pain negatively affects her daily activities, functioning, ADLs, mood, sleep and social activities. She is followed by Rheumatology. Denies any fever, weight loss, abdominal or groin pain, bladder or bowel dysfunction or saddle anesthesia. Location Lower back radiates to leg leg anteriorly and laterally Duration Chronic pain >6 + years Characteristics of symptom or complaint Aching, cramping, stabbing, sore, throbbing, flashing, stinging Aggravating or associated factors Movements, weather changes, prolonged walking, standing, or sitting Relieving factors Hot water, rest, activity modifications, Tylenol, Ibuprofen Treatment PT- slight improvement, injections -partial relief; HEP-mild relief PFSH Medical History Vitiligo Left foot pain Physical exam SALOMON (generalized anxiety disorder) Mild recurrent major depression Migraines GERD (gastroesophageal reflux disease) Asthma Cough Chronic allergic rhinitis Moderate persistent asthma Mixed hyperlipidemia Depression with anxiety Surgical History History of removal of cyst Family History Father CAD (coronary artery disease) Mother Chronic mental illness Stroke Paternal Grandmother Cancer Paternal Aunt Liver cancer Sister Multiple sclerosis Brother ALS (amyotrophic lateral sclerosis) Sister Schizophrenia Family/Other FH: mental illness Social History Housing: Apartment Alcohol intake: never Patient Tobacco Use Status: Never used Tobacco e-Cigarette/Vaping Use: Never Used Second Hand Smoke Exposure: No service: No Current occupational status: unemployed Cognitive needs: Yes Hearing needs: No Vision needs: No Female Reproductive History Menstrual Age of Menarche: 11 Review of Systems Const All systems reviewed & are unremarkable except as noted in HPI and below Physical Exam General: Appears afebrile. Alert and oriented. Mood and affect appropriate. Follows and participates in conversation appropriately. Respiratory effort is unlabored. No cough. Able to transition from sit to stand unassisted. Ambulates with bilaterally normal heel strike and toe off. Back/Spine/Pelvis Other: Patient is able to walk and stand on heels and tip toes with no difficulties demonstrating good motor tone. No limping. Can flex forward to 70-75 degrees and extend to 5-10 degrees before experiencing lumbar pain. Demonstrates 5/5 strength of quadriceps bilaterally as well as flexion/dorsiflexion of bilateral feet against resistance. 2+ pedal pulses bilaterally. Seated straight leg rise with dorsiflexion positive on the left. +2 patellar and +1 achilles reflexes bilaterally. Facet loading test positive bilaterally, worse on the left. Jonny sign, Danyel?s, Gaenslen, Pelvic compression and Stinchfield tests are positive bilaterally, left>right. No groin pain with I/E hip rotations. No midline tenderness thoracolumbar spine. Valsalva maneuver negative. Cervical Spine: cervical ROM normal, cervical muscular tenderness and No Cervical spine tenderness Thoracic/Lumbar Spine: thoracic and lumbar spine normal to inspection, No Thoracic/lumbar spine scar(s), Lasegue's sign positive on the left and localized, pain with thoraco-lumbar ROM, paraspinal muscle tenderness, thoraco- lumbar ROM limited, No thoracic spinal tenderness and lumbar spinal tenderness (L4-S1) at L5 Pelvis: buttock tenderness on the left Sacroiliac joints: bilaterally tender to palpation Results Reviewed Results Reviewed: Dr. Zamudio Neurology notes 02/24/22: MR LUMBAR SPINE WITHOUT CONTRAST 01/06/2019 CLINICAL INFORMATION: Lumbar radiculopathy. Facet arthropathy. COMPARISON: Plain films of the lumbar spine from 10/19/2018 TECHNIQUE: MRI of the lumbar spine was obtained using routine sequences without contrast. FINDINGS: VERTEBRAL BODIES AND PARASPINAL STRUCTURES: There is transitional anatomy at the lumbosacral junction with pseudoarticulation of the right L5 transverse process with the sacrum and perceived nonarticulation of the left L5 transverse process with the sacrum. Both L5 transverse processes are broadened. Vertebral body height is maintained. Marrow signal is maintained. There is grade 1 anterolisthesis of L4 on L5 measuring 3 mm without evidence of spondylolyses. There is disc desiccation and mild height loss at L4-L5 and disc desiccation at L3-L4 and L2-L3 as well. There is a mild dextroconvex scoliosis. The visualized aorta is normal in caliber. No adenopathy. No hydronephrosis. Paraspinal muscle bulk appears maintained. The imaged SI joints appear unremarkable. CONUS MEDULLARIS AND CAUDA EQUINA: The conus terminates normally at L1. No intrathecal signal abnormalities. SPINAL LEVELS: T12-L1, L1-L2: Disc morphology is normal. There is no canal or foraminal stenosis. L2-L3, L3-L4: Minor disc bulge without significant canal or foraminal stenosis. Mild facet hypertrophy. L4-L5: There is grade 1 degenerative anterolisthesis with uncovering of the disc and disc bulge. There is advanced facet hypertrophy with a left facet effusion and nodular thickening of the ligamentum flavum. There is mild trefoil type canal stenosis. There is mild right greater than left foraminal stenosis with a facet osteophyte appearing to contact the dorsal margin of the exiting right L4 nerve root. L5-S1: There is a slightly rudimentary disc. No significant canal or foraminal stenosis. There is a left lateral bridging osteophyte which impinges upon the extraforaminal exiting left L5 nerve root. IMPRESSION: Transitional anatomy at the lumbosacral junction with non-articulation of the left L5 transverse process with the sacrum and pseudoarticulation of the right L5 transverse process with the sacrum. Mild dextroconvex scoliosis. L4-L5: Grade 1 degenerative anterolisthesis. There is multifactorial mild trefoil type canal stenosis as well as mild right greater than left foraminal stenosis, with a facet osteophyte appearing to contact the exiting right L4 nerve root. L5-S1: A left lateral bridging osteophyte appears to impinge upon the extraforaminal exiting left L5 nerve root. XR LUMBOSACRAL SPINE 10/19/2018 CLINICAL INFORMATION: Lumbar radiculopathy. Facet arthropathy. Myalgia COMPARISON: 08/23/2016 FINDINGS: There is a transitional vertebra at the lumbosacral junction. Bones are in normal anatomic alignment with no acute fracture or spondylolisthesis. Vertebral body heights and disc heights are otherwise preserved. Degenerative sclerotic changes seen in the posterior elements of the lower lumbar spine. IMPRESSION: Degenerative changes in the lower lumbar spine with transitional vertebra at the lumbosacral junction and degenerative changes from this likely partial sacralization of L5 Assessment & Plan Assessment & Plan (1) Lumbar radiculopathy: Code(s): M54.16 - Radiculopathy, lumbar region (2) Lumbar degenerative disc disease: Code(s): M51.36 - Other intervertebral disc degeneration, lumbar region (3) Sacroiliac joint pain: Code(s): M53.3 - Sacrococcygeal disorders, not elsewhere classified (4) Lumbosacral spondylosis: Code(s): M47.817 - Spondylosis without myelopathy or radiculopathy, lumbosacral region (5) Muscle spasm: Code(s): M62.838 - Other muscle spasm Plan Discussed treatment options for both her axial low back as well as radicular pain. For axial low back pain will tentatively plan for diagnostic bilateral L3-L4 DR L5 medial branch blocks with local and fluoroscopy. If she has significant relief from the diagnostic blocks for his axial low back pain, will consider either therapeutic injections, Sprint PNS or RFA depending on her preference. For left sided radicular pain, will proceed with updating her lumbar spine imaging with xray and MRI to assess for neural integrity and compression and follow up on previous lumbar spine MRI findings. Patient has tried NSAIDs, physical therapy, home exercise program, heat therapy, Tylenol, NSAIDs and previously back injections with continued symptoms. Patient will return to the clinic to discuss results of the MRI findings when it is done and consider interventional therapy as indicated. Scripts provided for tizanidine, lidocaine patches, and diclofenac potassium for current symptoms. Side effects and precautions reviewed with patient in greater detail with assistance of director clinical research. All questions and concerns have been answered and patient agreed with the plan. Follow up for xray/MRI results and sooner as needed. Orders: Orders 2 XR sacroiliac joint min 3V Today M47.817 - Spondylosis without myelopathy or radiculopathy, lumbosacral region, M53.3 - Sacrococcygeal disorders, not elsewhere classified XR lumbar spine 4V min Today M47.817 - Spondylosis without myelopathy or radiculopathy, lumbosacral region, M51.36 - Other intervertebral disc degeneration, lumbar region, M53.3 - Sacrococcygeal disorders, not elsewhere classified, M54.16 - Radiculopathy, lumbar region MR lumbar spine wo con Today M47.817 - Spondylosis without myelopathy or radiculopathy, lumbosacral region, M51.36 - Other intervertebral disc degeneration, lumbar region, M54.16 - Radiculopathy, lumbar region Medications: New 2 diclofenac potassium Take it with food and full glass of water. Avoid other NSAIDs. 50 mg PO BID PRN 60 tabs 1RF pain M47.817 - Spondylosis without myelopathy or radiculopathy, lumbosacral region, M51.36 - Other intervertebral disc degeneration, lumbar region, M53.3 - Sacrococcygeal disorders, not elsewhere classified lidocaine 5% 1 patch topical DAILY 30 ea 0RF pain M47.817 - Spondylosis without myelopathy or radiculopathy, lumbosacral region, M51.36 - Other intervertebral disc degeneration, lumbar region tizanidine 2 mg PO TID PRN 90 tabs 0RF muscle spasticity M51.36 - Other intervertebral disc degeneration, lumbar region, M62.838 - Other muscle spasm Coding Level of Care Code New Pt Level 4 (74655) Diagnoses Lumbar radiculopathy M54.16 Lumbar degenerative disc disease M51.36 Sacroiliac joint pain M53.3 Lumbosacral spondylosis M47.817 Muscle spasm M62.838
[2023-08-23 13:02] VITALS: BP 141/82; PULSE 97; O2SAT 99; BMI 29.3
== END 2023-08-23 13:36 | disposition home or self-care (01) ==
PROVIDERS: PCP Internal Medicine; Referring Provider Internal Medicine; Visit Provider Nurse Practitioner Family
DX: M54.16 Radiculopathy, lumbar region (principal); M51.36 Other intervertebral disc degeneration, lumbar region; M53.3 Sacrococcygeal disorders, not elsewhere classified; M47.817 Spondylosis without myelopathy or radiculopathy, lumbosacral region; M62.838 Other muscle spasm
CPT/HCPCS: 99204

== ENCOUNTER 2023-08-23 12:52 | Outpatient (REF) | payer OTHER, SELFPAY ==
--- NOTE | ~2023-08-23 | XR_ITS ---
EXAMINATION: XR LUMBAR SPINE XR SACROILIAC JOINTS CLINICAL INFORMATION: Sacrococcygeal disorder with degenerative disc disease in the lumbar spine. COMPARISON: None available. TECHNIQUE: 5 views lumbar spine, 4 views SI joints. FINDINGS: There is a lumbar scoliosis convex to the right. There is partial sacralization of the L5 vertebral body. There is mild grade 1 anterolisthesis of L4 upon L5. Degenerative changes at left-sided facet joints are noted at L4-L5 and L5-S1. Some mild sclerotic changes are present at the SI joints but there is no effusion. No pelvic fracture is seen. No bony destructive lesions. XR/XR lumbar spine 4V min IMPRESSION: 1. Mild scoliosis convex to the right with partial sacralization of the right side of L5. 2. Degenerative changes in the facet joints on the left at L4-L5 and L5-S1. 3. Grade 1 anterolisthesis of L4 upon L5.
--- NOTE | ~2023-08-23 | XR_ITS ---
EXAMINATION: XR LUMBAR SPINE XR SACROILIAC JOINTS CLINICAL INFORMATION: Sacrococcygeal disorder with degenerative disc disease in the lumbar spine. COMPARISON: None available. TECHNIQUE: 5 views lumbar spine, 4 views SI joints. FINDINGS: There is a lumbar scoliosis convex to the right. There is partial sacralization of the L5 vertebral body. There is mild grade 1 anterolisthesis of L4 upon L5. Degenerative changes at left-sided facet joints are noted at L4-L5 and L5-S1. Some mild sclerotic changes are present at the SI joints but there is no effusion. No pelvic fracture is seen. No bony destructive lesions. XR/XR sacroiliac joint min 3V IMPRESSION: 1. Mild scoliosis convex to the right with partial sacralization of the right side of L5. 2. Degenerative changes in the facet joints on the left at L4-L5 and L5-S1. 3. Grade 1 anterolisthesis of L4 upon L5.
== END 2023-08-23 12:53 | disposition home or self-care (01) ==
LOC: HO.XRAY 12:52
PROVIDERS: PCP Internal Medicine; Referring Provider Internal Medicine; Visit Provider Nurse Practitioner Family
DX: M54.16 Radiculopathy, lumbar region (principal); M51.36 Other intervertebral disc degeneration, lumbar region; M53.3 Sacrococcygeal disorders, not elsewhere classified; M47.817 Spondylosis without myelopathy or radiculopathy, lumbosacral region; M62.838 Other muscle spasm
CPT/HCPCS: 72110; 72202; 99202

== ENCOUNTER 2023-11-10 06:11 | Outpatient (REF) | payer OTHER, SELFPAY ==
--- NOTE | ~2023-11-10 | FL_ITS ---
EXAMINATION: Intraoperative fluoroscopy CLINICAL INFORMATION: Spondylosis COMPARISON: Lumbar spine x-rays 08/23/2023 TECHNIQUE: Intraoperative fluoroscopy was provided for use by Dr. Silver. A total of 2 images were saved to PACS. A radiologist was not present during imaging. Today's dictation is only for administrative purposes to document intraoperative fluoroscopic usage. TOTAL FLUOROSCOPIC TIME: 0.1 minutes DAP: 0.0225 mGy-cm FL/FL guidance in treatment room FINDINGS~\^^ Intraoperative fluoroscopy provided for use by Dr. Silver. Please see operative note for detailed findings.
== END 2023-11-10 06:12 | disposition home or self-care (01) ==
LOC: CF 06:11
PROVIDERS: Visit Provider Internal Medicine
DX: M47.817 Spondylosis without myelopathy or radiculopathy, lumbosacral region (principal)
CPT/HCPCS: 64493; 64494; J2795; Q9967

== ENCOUNTER 2023-11-10 10:07 | Outpatient (AMB) | payer OTHER, SELFPAY ==
[2023-11-10 10:12] VITALS: BP 120/70; PULSE 67; RESP 14; O2SAT 97; BMI 28.9
--- NOTE | 2023-11-10 10:12 | MHC.OFFVIS ---
Intake Vital Signs 11/10/23 10:12 11/10/23 11:16 Height 5 ft 8 in 5 ft 8 in Weight 190 lb 190 lb BMI 28.9 28.9 BP 120/70 130/68 Blood Pressure Location Rt brachial Rt brachial Position Sitting Sitting Respiration 14 14 Pulse 67 66 Pulse Source Pulse Oximeter Pulse Oximeter Pulse Oximetry (%) 97 97 Oxygen Delivery Method Room Air Room Air Comment Pre-Op Post-Op Intake Visit Reasons: BILATERAL DIAGNOSTIC L3, L4, DRL5 MBB Hand Lens Polisher Required: No Accompanied by: Spouse Allergies hydroxyzine [HYDROXYZINE] Allergy (Intermediate, Verified 11/10/23 10:13) THROAT TIGHT , dry mouth Penicillins [PENICILLINS] Allergy (Intermediate, Verified 11/10/23 10:13) RASH pollen extracts [POLLEN] Allergy (Intermediate, Verified 11/10/23 10:13) THROAT GETS ITCHY tramadol Allergy (Intermediate, Verified 11/10/23 10:13) sleepiness HPI BILATERAL DIAGNOSTIC L3, L4, DRL5 MBB HPI Details Patient presents for scheduled procedure. Denies any recent cough, cold, infection, fever or other significant changes in medical history since last office visit. [facility] Medical History Vitiligo Left foot pain Physical exam SALOMON (generalized anxiety disorder) Mild recurrent major depression Migraines GERD (gastroesophageal reflux disease) Asthma Cough Chronic allergic rhinitis Moderate persistent asthma Mixed hyperlipidemia Depression with anxiety Surgical History History of removal of cyst Family History Father CAD (coronary artery disease) Mother Chronic mental illness Stroke Paternal Grandmother Cancer Paternal Aunt Liver cancer Sister Multiple sclerosis Brother ALS (amyotrophic lateral sclerosis) Sister Schizophrenia Family/Other FH: mental illness Social History Housing: Apartment Alcohol intake: never Patient Tobacco Use Status: Never used Tobacco e-Cigarette/Vaping Use: Never Used Second Hand Smoke Exposure: No service: No Current occupational status: unemployed Cognitive needs: Yes Hearing needs: No Vision needs: No Female Reproductive History Menstrual Age of Menarche: 11 Physical Exam Vital Signs: Last Vital Signs Pulse 67 11/10/23 10:12 Resp 14 11/10/23 10:12 BP 120/70 11/10/23 10:12 Pulse Ox 97 11/10/23 10:12 Oxygen Delivery Method Room Air 11/10/23 10:12 BMI result Body Mass Index 28.9 Office Procedures Lumbar/Sacral Facet Inj Details: Lumbar Medial Branch Block, Bilateral L3, L4 medial branches and L5 Dorsal Ramus (2 levels, 3 nerves) After obtaining written consent, pre-procedure blood pressure and pulse were recorded and are in the nursing record for review. The patient was placed in a prone position. The respective lumbosacral area was prepped with chloraprep and draped in sterile fashion. The skin over the target medial branch nerves was anesthetized with 0.5% lidocaine. A 22 gauge 3.5 inch needle was inserted into the target medial branch nerve under fluoroscopic guidance. No paresthesias were elicited with needle placement and aspiration was negative for blood and CSF. Next, 0.2cc of omnipaque 180 was injected to verify positioning. Next 0.5 ml 0.5% ropivicaine was injected (0.5cc total per level). The identical procedure was performed at the remaining levels. The skin was cleansed and a sterile bandage was applied. Following the procedure the patient's vital signs were stable. The patient tolerated the procedure well and no complications were encountered. Following the procedure the patient's vital signs were stable. The patient was discharged home in good condition with post-procedural instructions. Time Out: Immediately prior to the procedure, the following was verbally confirmed that there is a signed consent form and that the correct patient, planned procedure, site and side are consistent with documentation and that necessary equipment and/or blood products are available prior to the start of the case. Complications: none EBL: <5 cc 30870 - second level, with Fluoroscopy (bilateral) Procedure code (CPT) selection complete Assessment & Plan Assessment & Plan (1) Lumbosacral spondylosis: Code(s): M47.817 - Spondylosis without myelopathy or radiculopathy, lumbosacral region (2) Bertolotti's syndrome: Code(s): Q76.49 - Other congenital malformations of spine, not associated with scoliosis Plan Patient is status post bilateral L3, L4 MB, L5 DR diagnostic block. Patient tolerated procedure well and was discharged home in stable condition with discharge instructions. All questions were answered. We will follow-up via telephone or in clinic to assess response to therapy. A follow-up appointment was made during today's visit. Consider corticosteroid injection of the TP articulations in the future as well as potential PNS implants for longer term relief. Orders: Orders FL guidance in treatment room Today M47.817 - Spondylosis without myelopathy or radiculopathy, lumbosacral region Coding Level of Care Code Procedure Only Diagnoses Lumbosacral spondylosis M47.817 Bertolotti's syndrome Q76.49 CPT Codes Facet Injection-Lumbar/Sacral - CPT: 46318 - second level, with Fluoroscopy ([id number])
[2023-11-10 11:16] VITALS: BP 130/68; PULSE 66; RESP 14; O2SAT 97; BMI 28.9
== END 2023-11-10 11:08 | disposition home or self-care (01) ==
LOC: HO.PMCPRC 10:07
PROVIDERS: PCP Internal Medicine; Visit Provider Internal Medicine
DX: M47.817 Spondylosis without myelopathy or radiculopathy, lumbosacral region (principal); Q76.49 Other congenital malformations of spine, not associated with scoliosis
CPT/HCPCS: 64493; 64494

== ENCOUNTER 2023-11-17 09:52 | Outpatient (AMB) | payer OTHER, SELFPAY ==
[2023-11-17 09:54] VITALS: BP 130/80; BMI 29.5
--- NOTE | 2023-11-17 09:54 | A.OFFPC_ITS ---
Vital Signs 11/17/23 09:54 Height 5 ft 8 in Weight 194 lb BMI 29.5 BP 130/80 Blood Pressure Location Lt brachial Position Sitting Intake Visit Reasons: depression Intake Note: Patient here for a follow up depression Mold Sprayer Required: No Accompanied by: Self / Same As Patient Allergies hydroxyzine [HYDROXYZINE] Allergy (Intermediate, Verified 11/17/23 10:11) THROAT TIGHT , dry mouth Penicillins [PENICILLINS] Allergy (Intermediate, Verified 11/17/23 10:11) RASH pollen extracts [POLLEN] Allergy (Intermediate, Verified 11/17/23 10:11) THROAT GETS ITCHY tramadol Allergy (Intermediate, Verified 11/17/23 10:11) sleepiness Medication List - Last Reconciled 11/17/23 by Alejandra Spicer MD aripiprazole 10 mg PO DAILY budesonide-formoterol 160-4.5 mcg/actuation (Symbicort) 2 puffs inhalation BID 30 days buspirone 15 mg PO TID cetirizine 10 mg PO DAILY 90 days diclofenac potassium 50 mg PO BID PRN Dupixent Syringe (dupilumab) 300 mg (2 mL) subcut Q2W NS escitalopram oxalate 20 mg PO DAILY fluticasone propionate 50 mcg/actuation 1 spray intranasal DAILY 2 weeks sumatriptan succinate mg PO PRN tizanidine 2 mg PO TID PRN Tobacco use date assessed: 11/17/23 Dental Screening Dental Screen Date: 11/17/23 Did you have a dental visit in the last 12 months?: No Did you have a dental problem in the last 6 months where you did not have access to dental care?: No Was dental information given to patient?: Patient has dentist HPI HPI Comments History of Present Illness Details This is a 58-year-old female with mild recurrent major depression, generalized anxiety disorder, migraines and moderate persistent asthma that comes today for follow-up on her conditions. Depression and anxiety has been stable with escitalopram. Migraines happen few times a month and is control with sumatriptan when it happens. She use rescue inhaler 1 to 2 times a month due to her asthma and is follow by pulmonology. No chest pain or shortness of breath. Complains of urge urinary incontinence and will benefit from incontinence liner and bed pads. [facility] Medical History Vitiligo Left foot pain Physical exam SALOMON (generalized anxiety disorder) Mild recurrent major depression Migraines GERD (gastroesophageal reflux disease) Asthma Cough Chronic allergic rhinitis Moderate persistent asthma Mixed hyperlipidemia Depression with anxiety Surgical History History of removal of cyst Family History Father CAD (coronary artery disease) Mother Chronic mental illness Stroke Paternal Grandmother Cancer Paternal Aunt Liver cancer Sister Multiple sclerosis Brother ALS (amyotrophic lateral sclerosis) Sister Schizophrenia Family/Other FH: mental illness Social History Housing: Apartment Alcohol intake: never Patient Tobacco Use Status: Never used Tobacco e-Cigarette/Vaping Use: Never Used Second Hand Smoke Exposure: No service: No Current occupational status: unemployed Cognitive needs: No Hearing needs: No Vision needs: Yes Female Reproductive History Menstrual Age of Menarche: 11 Questionnaire PHQ-9 Over the last 2 weeks, how often have you been bothered by any of the following problems? 1. Little interest or pleasure in doing things: several days 2. Feeling down, depressed, or hopeless: more than half the days 3. Trouble falling or staying asleep, or sleeping too much: several days 4. Feeling tired or having little energy: nearly every day 5. Poor appetite or overeating: not at all 6. Feeling bad about yourself - or that you are a failure or have let yourself or your family down: not at all 7. Trouble concentrating on things, such as reading the newspaper or watching television: several days 8. Moving or speaking so slowly that other people could have noticed. Or the opposite - being so fidgety or restless that you have been moving around a lot more than usual: several days 9. Thoughts that you would be better off or of hurting yourself in some way: not at all Total score: 9 Depression Screening Interpretation: Positive Depression Screening Follow-up: Existing condition and In treatment Depression Screening Done: Yes 08539 - PHQ-9 Billing: Yes Source: Developed by Drs. Kayden Eldridge, Chelsy Cholo German and colleagues, with an educational jeannie from [employer]. Thrive Questionnaire Date Thrive assessed: 11/17/23 I am a: Patient What is your living situation today?: I have a steady place to live Within the past 12 months, did the food you bought not last and you didn't have the money to get more?: Never true Within the past 12 months, did you worry whether your food would run out before you got money to buy more?: Never true Do you have trouble paying for medicines?: No Do you have trouble getting transportation to medical appointments?: No Do you have trouble paying your heating and electricity bill?: No Do you have trouble taking care of your child, family member or friend?: No Do you have trouble with day-to-day activities such as bathing, preparing meals, shopping, managing finances, etc.?: No Are you currently unemployed and looking for a job?: No Are you interested in more education?: No Please select the resources that you would like help with: None Currently or been in a relationship where the following occur: no concerns reported THRIVE Score: 0 AUDIT C Alcohol Use Questionnaire (AUDIT-C) 1. How often do you have a drink containing alcohol?: Never Total Score: 0 SALOMON-7 AMB Questionnaire SALOMON-7 Date SALOMON - 7 assessed: 11/17/23 Feeling nervous, anxious, or on edge: 1 = Several days Not being able to stop or control worryin = Several days Worrying too much about different things: 3 = Nearly every day Trouble relaxin = Several days Being so restless that it is hard to sit still: 1 = Several days Becoming easily annoyed or irritable: 1 = Several days Feeling afraid as if something awful might happen: 1 = Several days Total SALOMON-7 score (0-4 normal; 5-9 mild; 10-14 moderate; 15-21 severe): 9 Source: Developed by Drs. Kayden Eldridge, Cholo Cristina and colleagues, with an educational jeannie from [employer]. SALOMON-7 Assessment Billing SALOMON-7 Assessment Tool: SALOMON-7 Assessment 88641 Review of Systems Const All systems reviewed & are unremarkable except as noted in HPI and below Eyes Reports no additional complaints, Denies change in vision and Denies other visual disturbances Card Denies chest pain at rest, Denies chest pain with activity, Denies edema, Denies irregular heart rhythm, Denies claudication, Denies dyspnea, Denies dyspnea on exertion, Denies orthopnea, Denies paroxysmal nocturnal dyspnea and Denies slow heart rate Resp Denies cough, Denies dyspnea and Denies dyspnea on exertion GI Denies abdominal pain, Denies change in bowel habits, Denies excessive flatus, Denies nausea and Denies vomiting Denies urinary incontinence, Denies urinary hesitancy and Denies urinary urgency Musc Denies abnormal gait, Denies atrophy, Denies deformity and Denies limited range of motion Skin/Breast Denies bleeding lesions, Denies changing lesions and Denies rash Neuro Denies abnormal gait, Denies behavioral changes and Denies lack of coordination Psych Denies behavioral changes Physical exam (Primary Care) Vital Signs: Last Vital Signs BP 130/80 11/17/23 09:54 BMI result Body Mass Index 29.5 Tobacco/Smoking Status: Tobacco use Status Tobacco use date assessed 11/17/23 11/17/23 10:05 Patient Tobacco Use Status Never used Tobacco 11/17/23 10:05 e-Cigarette/Vaping Use Never Used 11/17/23 10:05 PHQ-9: PHQ-9 Score PHQ-9: Total score 9 11/17/23 10:16 Depression Screening Interpretation: Positive Depression Screening Follow-up: Existing condition and In treatment Thrive Assessment: Date of Thrive Assessment Date Thrive assessed 11/17/23 11/17/23 10:05 Currently or been in a relationship where the following occur: no concerns reported Eyes General: appearance normal, both eyes and all related structures Eyelids: Yes eyelids normal Conjunctivae: conjunctivae normal Neck Neck: Yes normal visual inspection and Yes supple Resp Effort & Inspection: normal respiratory effort Auscultation: clear to auscultation bilaterally Cardio Jugular venous distension: no JVD Rate: regular rate Rhythm: regular rhythm Heart sounds: S1 normal heart sound present and S2 normal heart sound present Extrem General: Yes full ROM Assessment and Plan Assessment & Plan (1) Mild recurrent major depression: Code(s): F33.0 - Major depressive disorder, recurrent, mild Plan: Continue escitalopram. (2) SALOMON (generalized anxiety disorder): Code(s): F41.1 - Generalized anxiety disorder Plan: Continue escitalopram. Continue buspirone. (3) Moderate persistent asthma: Code(s): J45.40 - Moderate persistent asthma, uncomplicated Qualifiers: Asthma complication type: uncomplicated Qualified Code(s): J45.40 - Moderate persistent asthma, uncomplicated Plan: Continue Symbicort. Use rescue inhaler as needed. Follow-up with pulmonology. (4) Migraines: Code(s): G43.909 - Migraine, unspecified, not intractable, without status migrainosus Qualifiers: Migraine type: without aura Status migrainosus presence: without status migrainosus Intractability: not intractable Qualified Code(s): G43.009 - Migraine without aura, not intractable, without status migrainosus Plan: Continue sumatriptan as needed. Orders: Orders Lipid Panel 2 Months E78.5 - Hyperlipidemia, unspecified Vitamin D 25-OH Total 2 Months E55.9 - Vitamin D deficiency, unspecified Comprehensive Twining. Panel Fast 2 Months M54.16 - Radiculopathy, lumbar region Coding Level of Care Code Est Pt Level 4 (20949) Diagnoses Mild recurrent major depression F33.0 SALOMON (generalized anxiety disorder) F41.1 Moderate persistent asthma without complication J45.40 Asthma complication type: uncomplicated Migraine without aura and without status migrainosus, not intractable G43.009 Migraine type: without aura Status migrainosus presence: without status migrainosus Intractability: not intractable Additional Codes SALOMON-7 Assessment Billing - SALOMON-7 Assessment Tool: SALOMON-7 Assessment 33452 ([id number]) Time Spent (min) 24
== END 2023-11-17 10:19 | disposition home or self-care (01) ==
PROVIDERS: PCP Internal Medicine; Visit Provider Internal Medicine
DX: J45.40 Moderate persistent asthma, uncomplicated (principal); F33.0 Major depressive disorder, recurrent, mild; F41.1 Generalized anxiety disorder; G43.009 Migraine without aura, not intractable, without status migrainosus
CPT/HCPCS: 96127; 99214

== ENCOUNTER 2023-11-18 10:06 | Outpatient (AMB) | payer OTHER, SELFPAY ==
--- NOTE | 2023-11-18 10:23 | MHC.OFFVIS ---
Intake Vital Signs 11/18/23 10:28 Height 5 ft 8 in Weight 192 lb BMI 29.2 BP 144/74 H Blood Pressure Location Lt brachial Position Sitting Respiration 14 Pulse 69 Pulse Source Pulse Oximeter Pulse Oximetry (%) 97 Oxygen Delivery Method Room Air Intake Visit Reasons: BILATERAL DIAGNOSTIC L3, L4, DRL5 MBB/11/17/23 Project Manager Process Development Required: Yes Project Manager Process Development Language: Route Sales Trainee Name: Chacha READ #[id number] Allergies hydroxyzine [HYDROXYZINE] Allergy (Intermediate, Verified 11/18/23 10:28) THROAT TIGHT , dry mouth Penicillins [PENICILLINS] Allergy (Intermediate, Verified 11/18/23 10:28) RASH pollen extracts [POLLEN] Allergy (Intermediate, Verified 11/18/23 10:28) THROAT GETS ITCHY tramadol Allergy (Intermediate, Verified 11/18/23 10:28) sleepiness HPI HPI Comments History of Present Illness Details Patient presents today to assess response to Diagnostic Bilateral L3-L4 DR L5 MBB injections on 11/10/[address] Silver. Patient reports 90% pain relief for 24 hours following the procedure with significant improvement in her daily functioning, mobility and sleep. Patient reports gradual return of pain to its baseline over the 2-3rd days since procedure. She continues to endorse left leg pain and has pending lumbar spine MRI on 12/05/23. We reviewed next steps for axial low back pain including therapeutic injections, lumbar medial branch PNS trial vs RFA. She would like to complete MRI first prior to proceeding treatments for axial low back pain. Denies any recent cough, cold, infection, fever, any significant changes in her medical history, medications or recent hospitalizations. Past Procedures: 11/10/23: Diagnostic Bilateral L3-L4 DR L5 MBB-90% pain relief for 24 hours PRIOR: Patient is a pleasant 57 years old female presents today for evaluation of chronic worsening back and left leg pain. She was seen in our Pain Management office in [address] Young. She failed prior conservative treatments with physical therapy and medication and subsequently underwent left L5 TFESI with partial pain relief. Patient reports injection was helpful for pain but she continued to have weakness in her left lower extremity. 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 Denies any recent trauma, injury or falls. Back pain is axial with facet mediated and radicular components as well as significant tenderness in the projection of left sacroiliac joint area. Mild tenderness on right SIJ. SLR testing reproduced left leg and back pain today, worse with dorsiflexion. Patient also has widespread body pain including multiple joints with history of polyarthralgia and fibromyalgia. Chronic pain negatively affects her daily activities, functioning, ADLs, mood, sleep and social activities. She is followed by Rheumatology. Denies any fever, weight loss, abdominal or groin pain, bladder or bowel dysfunction or saddle anesthesia. Location Lower back radiates to leg leg anteriorly and laterally Duration Chronic pain >6 + years Characteristics of symptom or complaint Aching, cramping, stabbing, sore, throbbing, flashing, stinging Aggravating or associated factors Movements, weather changes, prolonged walking, standing, or sitting Relieving factors Hot water, rest, activity modifications, Tylenol, Ibuprofen Treatment PT- slight improvement, injections -partial relief; HEP-mild relief PFSH Medical History Vitiligo Left foot pain Physical exam SALOMON (generalized anxiety disorder) Mild recurrent major depression Migraines GERD (gastroesophageal reflux disease) Asthma Cough Chronic allergic rhinitis Moderate persistent asthma Mixed hyperlipidemia Depression with anxiety Surgical History History of removal of cyst Family History Father CAD (coronary artery disease) Mother Chronic mental illness Stroke Paternal Grandmother Cancer Paternal Aunt Liver cancer Sister Multiple sclerosis Brother ALS (amyotrophic lateral sclerosis) Sister Schizophrenia Family/Other FH: mental illness Social History Housing: Apartment Alcohol intake: never Patient Tobacco Use Status: Never used Tobacco e-Cigarette/Vaping Use: Never Used Second Hand Smoke Exposure: No service: No Current occupational status: unemployed Cognitive needs: No Hearing needs: No Vision needs: Yes Female Reproductive History Menstrual Age of Menarche: 11 Review of Systems Const All systems reviewed & are unremarkable except as noted in HPI and below Physical Exam Vital Signs: Last Vital Signs Pulse 69 11/18/23 10:28 Resp 14 11/18/23 10:28 BP 144/74 H 11/18/23 10:28 Pulse Ox 97 11/18/23 10:28 Oxygen Delivery Method Room Air 11/18/23 10:28 BMI result Body Mass Index 29.2 General: Appears afebrile. Alert and oriented. Mood and affect appropriate. Follows and participates in conversation appropriately. Respiratory effort is unlabored. No cough. Able to transition from sit to stand unassisted. Ambulates with bilaterally normal heel strike and toe off. Back/Spine/Pelvis Cervical Spine: cervical ROM normal, cervical muscular tenderness and No Cervical spine tenderness Thoracic/Lumbar Spine: thoracic and lumbar spine normal to inspection, No Thoracic/lumbar spine scar(s), Lasegue's sign positive on the left and localized, pain with thoraco-lumbar ROM, paraspinal muscle tenderness, thoraco-lumbar ROM limited, No thoracic spinal tenderness, lumbar spinal tenderness (L4-S1) at L5 and straight leg raise positive left at 50 degrees Pelvis: buttock tenderness on the left Sacroiliac joints: bilaterally tender to palpation Results Reviewed Results Reviewed: Dr. Zamudio Neurology notes 02/24/22: MR LUMBAR SPINE WITHOUT CONTRAST 01/06/2019 CLINICAL INFORMATION: Lumbar radiculopathy. Facet arthropathy. COMPARISON: Plain films of the lumbar spine from 10/19/2018 TECHNIQUE: MRI of the lumbar spine was obtained using routine sequences without contrast. FINDINGS: VERTEBRAL BODIES AND PARASPINAL STRUCTURES: There is transitional anatomy at the lumbosacral junction with pseudoarticulation of the right L5 transverse process with the sacrum and perceived nonarticulation of the left L5 transverse process with the sacrum. Both L5 transverse processes are broadened. Vertebral body height is maintained. Marrow signal is maintained. There is grade 1 anterolisthesis of L4 on L5 measuring 3 mm without evidence of spondylolyses. There is disc desiccation and mild height loss at L4-L5 and disc desiccation at L3-L4 and L2-L3 as well. There is a mild dextroconvex scoliosis. The visualized aorta is normal in caliber. No adenopathy. No hydronephrosis. Paraspinal muscle bulk appears maintained. The imaged SI joints appear unremarkable. CONUS MEDULLARIS AND CAUDA EQUINA: The conus terminates normally at L1. No intrathecal signal abnormalities. SPINAL LEVELS: T12-L1, L1-L2: Disc morphology is normal. There is no canal or foraminal stenosis. L2-L3, L3-L4: Minor disc bulge without significant canal or foraminal stenosis. Mild facet hypertrophy. L4-L5: There is grade 1 degenerative anterolisthesis with uncovering of the disc and disc bulge. There is advanced facet hypertrophy with a left facet effusion and nodular thickening of the ligamentum flavum. There is mild trefoil type canal stenosis. There is mild right greater than left foraminal stenosis with a facet osteophyte appearing to contact the dorsal margin of the exiting right L4 nerve root. L5-S1: There is a slightly rudimentary disc. No significant canal or foraminal stenosis. There is a left lateral bridging osteophyte which impinges upon the extraforaminal exiting left L5 nerve root. IMPRESSION: Transitional anatomy at the lumbosacral junction with non-articulation of the left L5 transverse process with the sacrum and pseudoarticulation of the right L5 transverse process with the sacrum. Mild dextroconvex scoliosis. L4-L5: Grade 1 degenerative anterolisthesis. There is multifactorial mild trefoil type canal stenosis as well as mild right greater than left foraminal stenosis, with a facet osteophyte appearing to contact the exiting right L4 nerve root. L5-S1: A left lateral bridging osteophyte appears to impinge upon the extraforaminal exiting left L5 nerve root. XR LUMBOSACRAL SPINE 10/19/2018 CLINICAL INFORMATION: Lumbar radiculopathy. Facet arthropathy. Myalgia COMPARISON: 08/23/2016 FINDINGS: There is a transitional vertebra at the lumbosacral junction. Bones are in normal anatomic alignment with no acute fracture or spondylolisthesis. Vertebral body heights and disc heights are otherwise preserved. Degenerative sclerotic changes seen in the posterior elements of the lower lumbar spine. IMPRESSION: Degenerative changes in the lower lumbar spine with transitional vertebra at the lumbosacral junction and degenerative changes from this likely partial sacralization of L5 Assessment & Plan Assessment & Plan (1) Lumbar radiculopathy: Code(s): M54.16 - Radiculopathy, lumbar region (2) Lumbar degenerative disc disease: Code(s): M51.36 - Other intervertebral disc degeneration, lumbar region (3) Sacroiliac joint pain: Code(s): M53.3 - Sacrococcygeal disorders, not elsewhere classified (4) Lumbosacral spondylosis: Code(s): M47.817 - Spondylosis without myelopathy or radiculopathy, lumbosacral region (5) Muscle spasm: Code(s): M62.838 - Other muscle spasm Plan Patient is status post diagnostic bilateral L3-L4 DR L5 medial branch blocks with good results. She will be tentatively scheduled for Bilateral L5 Medial Branch PNS lead placement with local and fluoroscopy for a longer term pain relief. Patient would like to proceed with this after she completes her upcoming MRI. Pending MRI to assess for neural integrity and compression and follow up on previous lumbar spine MRI findings. Patient has tried NSAIDs, physical therapy, home exercise program, heat therapy, Tylenol, NSAIDs and previously back injections with continued symptoms. Patient will return to the clinic to discuss results of the MRI findings when it is done and consider interventional therapy as indicated. Continue tizanidine, lidocaine patches, and diclofenac potassium for current symptoms. All questions and concerns have been answered and patient agreed with the plan. Follow up for MRI results and sooner as needed. Coding Level of Care Code Est Pt Level 3 (78817) Diagnoses Lumbar radiculopathy M54.16 Lumbar degenerative disc disease M51.36 Sacroiliac joint pain M53.3 Lumbosacral spondylosis M47.817 Muscle spasm M62.838
[2023-11-18 10:28] VITALS: BP 144/74; PULSE 69; RESP 14; O2SAT 97; BMI 29.2
== END 2023-11-18 10:37 | disposition home or self-care (01) ==
PROVIDERS: PCP Internal Medicine; Visit Provider Nurse Practitioner Family
DX: M54.16 Radiculopathy, lumbar region (principal); M51.36 Other intervertebral disc degeneration, lumbar region; M53.3 Sacrococcygeal disorders, not elsewhere classified; M47.817 Spondylosis without myelopathy or radiculopathy, lumbosacral region; M62.838 Other muscle spasm
CPT/HCPCS: 99213

== ENCOUNTER → 2023-11-18 10:06 | Outpatient (BNVA) | payer OTHER, SELFPAY | PROVIDERS: PCP Internal Medicine; Visit Provider Nurse Practitioner Family | DX: M54.16 Radiculopathy, lumbar region (principal); M51.36 Other intervertebral disc degeneration, lumbar region; M53.3 Sacrococcygeal disorders, not elsewhere classified; M47.817 Spondylosis without myelopathy or radiculopathy, lumbosacral region; M62.838 Other muscle spasm | CPT/HCPCS: 99212 ==

== ENCOUNTER 2023-12-05 14:05 | Outpatient (REF) | payer OTHER, SELFPAY ==
--- NOTE | ~2023-12-05 | MR_ITS ---
EXAMINATION: MR LUMBAR SPINE WITHOUT CONTRAST CLINICAL INFORMATION: Lumbosacral spondylosis. COMPARISON: Lumbar spine radiographs from 08/23/2023. Lumbar spine MRI from 01/06/2019. TECHNIQUE: MRI of the lumbar spine was obtained using routine sequences without contrast. Limited evaluation the patient was unable to tolerate additional imaging at this time. Only sagittal T2-weighted and T1-weighted imaging was obtained. FINDINGS: Transitional vertebral anatomy. There is right hemisacralization of L5 with pseudoarticulation of the right transverse process of L5 with the sacral ala. Degenerative grade 1 anterolisthesis of L4 on L5. Otherwise, normal anatomic alignment. There is moderate degenerative disc disease at L4-L5. There is mild degenerative disc disease from L1-L4. Associated mixed Modic type discogenic and plate changes including Modic type II discogenic from L2-L4. There is marrow edema within the posterior elements of L3-L5 consistent with degenerative stress reaction. No additional suspicious marrow edema. The vertebral body heights are well-maintained. The conus medullaris terminates at the level of L1. The distal spinal cord is normal in appearance. Advanced degenerative disc disease at L4-L5. Mild to moderate degenerative disc disease at all additional levels. Moderate disc bulge exacerbated by uncovering from anterolisthesis at L4-L5. Mild posterior disc bulging at all additional levels. There appears to be mild spinal canal stenosis at L4-L5. No additional spinal canal stenosis demonstrated. Mild to moderate neural foraminal stenoses at L4-L5. No demonstrated significant abnormalities of the paraspinal musculature. Limited evaluation of the intra-abdominal structures without significant abnormalities. The abdominal aorta is of normal contour and caliber. AXIAL SPINAL LEVELS: Axial imaging obtained. MR/MR lumbar spine wo con IMPRESSION: Transitional vertebral anatomy. There is right hemisacralization of L5. Limited evaluation. The patient was only able to tolerate motion degraded sagittal imaging at this time. Moderate multilevel degenerative spondyloarthropathy of the lumbar spine as described in detail above. Most notably, there appears to be mild spinal canal stenosis at L4-L5. Mild to moderate neural foraminal stenoses at L4-L5.
== END 2023-12-05 14:06 | disposition home or self-care (01) ==
LOC: HO.MRI 14:05
PROVIDERS: PCP Internal Medicine; Visit Provider Nurse Practitioner Family
DX: M47.817 Spondylosis without myelopathy or radiculopathy, lumbosacral region (principal); M51.36 Other intervertebral disc degeneration, lumbar region; M54.16 Radiculopathy, lumbar region
CPT/HCPCS: 72148

== ENCOUNTER 2023-12-23 12:45 | Outpatient (AMB) | payer OTHER, SELFPAY ==
--- NOTE | 2023-12-23 13:03 | A.OFFVIS_ITS ---
Intake Vital Signs 12/23/23 13:04 Height 5 ft 8 in Weight 192 lb BMI 29.2 BP 116/65 Blood Pressure Location Lt brachial Position Sitting Respiration 14 Pulse 70 Pulse Source Pulse Oximeter Pulse Oximetry (%) 95 Oxygen Delivery Method Room Air Intake Visit Reasons: MRI results Allergies hydroxyzine [HYDROXYZINE] Allergy (Intermediate, Verified 12/23/23 13:06) THROAT TIGHT , dry mouth Penicillins [PENICILLINS] Allergy (Intermediate, Verified 12/23/23 13:06) RASH pollen extracts [POLLEN] Allergy (Intermediate, Verified 12/23/23 13:06) THROAT GETS ITCHY tramadol Allergy (Intermediate, Verified 12/23/23 13:06) sleepiness Medication List - Last Reconciled 12/23/23 by Heydi Avery LPN aripiprazole 10 mg PO DAILY buspirone 15 mg PO TID cetirizine 10 mg PO DAILY 90 days diclofenac potassium 50 mg PO BID PRN Dupixent Syringe (dupilumab) 300 mg (2 mL) subcut Q2W NS escitalopram oxalate 20 mg PO DAILY fluticasone propionate 50 mcg/actuation 1 spray intranasal DAILY 2 weeks incontinence pad, liner, disp As directed latex gloves (Latex Gloves, Large) As directed sumatriptan succinate mg PO PRN tizanidine 2 mg PO TID PRN underpads (Bed Underpads) As directed HPI HPI Comments History of Present Illness Details Presents today follow-up to review recent lumbar spine MRI results. She continues to endorse low back pain radiates to both legs anteriorly and laterally, right worse than left, with associated numbness and tingling in intermittent weakness with prolonged walking. Patient also reports right shoulder pain for about 2 months and has difficulty with overhead reaches, pulling, or using her right arm. Denies any trauma, injury or falls. Denies any numbness or tingling in the right upper extremity but reports weakness with right arm overuse. Denies any recent cough, cold, infection, fever, any significant changes in her medical history, medications or recent hospitalizations. Past Procedures: 11/10/23: Diagnostic Bilateral L3-L4 DR L5 MBB-90% pain relief for 24 hours PRIOR: Patient is a pleasant 57 years old female presents today for evaluation of chronic worsening back and left leg pain. She was seen in our Pain Management office in [address] Young. She failed prior conservative treatments with physical therapy and medication and subsequently underwent left L5 TFESI with partial pain relief. Patient reports injection was helpful for pain but she continued to have weakness in her left lower extremity. 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 Denies any recent trauma, injury or falls. Ba ck pain is axial with facet mediated and radicular components as well as significant tenderness in the projection of left sacroiliac joint area. Mild tenderness on right SIJ. SLR testing reproduced left leg and back pain today, worse with dorsiflexion. Patient also has widespread body pain including multiple joints with history of polyarthralgia and fibromyalgia. Chronic pain negatively affects her daily activities, functioning, ADLs, mood, sleep and social activities. She is followed by Rheumatology. Denies any fever, weight loss, abdominal or groin pain, bladder or bowel dysfunction or saddle anesthesia. Location Lower back radiates to leg leg anteriorly and laterally Duration Chronic pain >6 + years Characteristics of symptom or complaint Aching, cramping, stabbing, sore, throbbing, flashing, stinging Aggravating or associated factors Movements, weather changes, prolonged walking, standing, or sitting Relieving factors Hot water, rest, activity modifications, Tylenol, Ibuprofen Treatment PT- slight improvement, injections -partial relief; HEP-mild relief PFSH Medical History Vitiligo Left foot pain Physical exam SALOMON (generalized anxiety disorder) Mild recurrent major depression Migraines GERD (gastroesophageal reflux disease) Asthma Cough Chronic allergic rhinitis Moderate persistent asthma Mixed hyperlipidemia Depression with anxiety Surgical History History of removal of cyst Family History Father CAD (coronary artery disease) Mother Chronic mental illness Stroke Paternal Grandmother Cancer Paternal Aunt Liver cancer Sister Multiple sclerosis Brother ALS (amyotrophic lateral sclerosis) Sister Schizophrenia Family/Other FH: mental illness Social History Housing: Apartment Alcohol intake: never Patient Tobacco Use Status: Never used Tobacco e-Cigarette/Vaping Use: Never Used Second Hand Smoke Exposure: No service: No Current occupational status: unemployed Cognitive needs: No Hearing needs: No Vision needs: Yes Female Reproductive History Menstrual Age of Menarche: 11 Review of Systems Const All systems reviewed & are unremarkable except as noted in HPI and below Physical Exam Vital Signs: Last Vital Signs Pulse 70 12/23/23 13:04 Resp 14 12/23/23 13:04 BP 116/65 12/23/23 13:04 Pulse Ox 95 12/23/23 13:04 Oxygen Delivery Method Room Air 12/23/23 13:04 BMI result Body Mass Index 29.2 General: Appears afebrile. Alert and oriented. Mood and affect appropriate. Follows and participates in conversation appropriately. Respiratory effort is unlabored. No cough. Able to transition from sit to stand unassisted. Ambulates with bilaterally normal heel strike and toe off. Back/Spine/Pelvis Cervical Spine: cervical ROM normal, cervical muscular tenderness and No Cervical spine tenderness Thoracic/Lumbar Spine: thoracic and lumbar spine normal to inspection, No Thoracic/lumbar spine scar(s), Lasegue's sign positive (left-localized, right- diffuse) bilateral and diffuse, pain with thoraco-lumbar ROM, paraspinal muscle tenderness, thoraco-lumbar ROM limited, No thoracic spinal tenderness, lumbar spinal tenderness (L4-S1) and straight leg raise positive Pelvis: buttock tenderness on the left Sacroiliac joints: bilaterally (+Danyel's test) tender to palpation Results Reviewed Results Reviewed: MR LUMBAR SPINE WITHOUT CONTRAST 12/05/23 CLINICAL INFORMATION: Lumbosacral spondylosis. COMPARISON: Lumbar spine radiographs from 08/23/2023. Lumbar spine MRI from 01/06/2019. TECHNIQUE: MRI of the lumbar spine was obtained using routine sequences without contrast. Limited evaluation the patient was unable to tolerate additional imaging at this time. Only sagittal T2-weighted and T1-weighted imaging was obtained. FINDINGS: Transitional vertebral anatomy. There is right hemisacralization of L5 with pseudoarticulation of the right transverse process of L5 with the sacral ala. Degenerative grade 1 anterolisthesis of L4 on L5. Otherwise, normal anatomic alignment. There is moderate degenerative disc disease at L4-L5. There is mild degenerative disc disease from L1-L4. Associated mixed Modic type discogenic and plate changes including Modic type II discogenic from L2-L4. There is marrow edema within the posterior elements of L3-L5 consistent with degenerative stress reaction. No additional suspicious marrow edema. The vertebral body heights are well-maintained. The conus medullaris terminates at the level of L1. The distal spinal cord is normal in appearance. Advanced degenerative disc disease at L4-L5. Mild to moderate degenerative disc disease at all additional levels. Moderate disc bulge exacerbated by uncovering from anterolisthesis at L4-L5. Mild posterior disc bulging at all additional levels. There appears to be mild spinal canal stenosis at L4-L5. No additional spinal canal stenosis demonstrated. Mild to moderate neural foraminal stenoses at L4-L5. No demonstrated significant abnormalities of the paraspinal musculature. Limited evaluation of the intra-abdominal structures without significant abnormalities. The abdominal aorta is of normal contour and caliber. AXIAL SPINAL LEVELS: Axial imaging obtained. IMPRESSION: Transitional vertebral anatomy. There is right hemisacralization of L5. Limited evaluation. The patient was only able to tolerate motion degraded sagittal imaging at this time. Moderate multilevel degenerative spondyloarthropathy of the lumbar spine as described in detail above. Most notably, there appears to be mild spinal canal stenosis at L4-L5. Mild to moderate neural foraminal stenoses at L4-L5. Assessment & Plan Assessment & Plan (1) Right shoulder pain: Code(s): M25.511 - Pain in right shoulder (2) Lumbosacral spondylosis: Code(s): M47.817 - Spondylosis without myelopathy or radiculopathy, lumbosacral region (3) Lumbar degenerative disc disease: Code(s): M51.36 - Other intervertebral disc degeneration, lumbar region (4) Lumbar radiculopathy: Code(s): M54.16 - Radiculopathy, lumbar region Plan Lumbar spine MRI results reviewed with patient in greater detail, reports as noted above. Right shoulder x-ray to assess degree of arthritis and degenerative changes prior to any treatments. Continue rest, elevation, NSAIDs, ice/heat therapy and activity modifications. Schedule bilateral L4-L5 TFESI with sedation and fluoroscopy for radicular low back pain. Expectations, risks and benefits were reviewed. Patient is aware she will be contacted to schedule this procedure. All questions were answered and t he patient is in agreement of plan. Follow-up after injections and sooner as needed. Orders: Orders XR shoulder RT min 2V 12/23/23 M25.511 - Pain in right shoulder Coding Level of Care Code Est Pt Level 4 (66092) Diagnoses Right shoulder pain M25.511 Lumbosacral spondylosis M47.817 Lumbar degenerative disc disease M51.36 Lumbar radiculopathy M54.16
[2023-12-23 13:04] VITALS: BP 116/65; PULSE 70; RESP 14; O2SAT 95; BMI 29.2
== END 2023-12-23 13:21 | disposition home or self-care (01) ==
PROVIDERS: PCP Internal Medicine; Visit Provider Nurse Practitioner Family
DX: M25.511 Pain in right shoulder (principal); M47.817 Spondylosis without myelopathy or radiculopathy, lumbosacral region; M51.36 Other intervertebral disc degeneration, lumbar region; M54.16 Radiculopathy, lumbar region
CPT/HCPCS: 99214

== ENCOUNTER → 2023-12-23 12:45 | Outpatient (BNVA) | payer OTHER, SELFPAY | PROVIDERS: PCP Internal Medicine; Visit Provider Nurse Practitioner Family | DX: M25.511 Pain in right shoulder (principal); M47.817 Spondylosis without myelopathy or radiculopathy, lumbosacral region; M51.36 Other intervertebral disc degeneration, lumbar region; M54.16 Radiculopathy, lumbar region | CPT/HCPCS: 99212 ==

== ENCOUNTER 2023-12-23 13:29 | Outpatient (REF) | payer OTHER, SELFPAY ==
--- NOTE | ~2023-12-23 | XR_ITS ---
EXAMINATION: XR SHOULDER, RIGHT CLINICAL INFORMATION: Pain in right shoulder. COMPARISON: MRI right shoulder of October 22, 2019. Radiographs right shoulder of 07/02/2019. TECHNIQUE: Four views of the right shoulder. FINDINGS: Degenerative changes in the partially imaged upper thoracic spine. Mild degenerative changes in the acromioclavicular joint. Glenohumeral alignment preserved. No abnormal soft tissue calcifications appreciated adjacent to the humeral head. XR/XR shoulder RT min 2V IMPRESSION: Mild degenerative changes in the acromioclavicular joint.
== END 2023-12-23 13:30 | disposition home or self-care (01) ==
LOC: HO.XRAY 13:29
PROVIDERS: PCP Internal Medicine; Visit Provider Nurse Practitioner Family
DX: M25.511 Pain in right shoulder (principal)
CPT/HCPCS: 73030

== ENCOUNTER 2024-01-09 06:12 | Outpatient (REF) | payer OTHER, SELFPAY ==
[2024-01-09 07:44] LABS: Alanine Aminotransferase 41 U/L (0-31); Albumin Level 4.1 g/dL (3.5-5.0); Alkaline Phosphatase 110 U/L (39-117); Anion Gap 10 (12-20); Aspartate Amino Transferase 35 U/L (5-31); Bilirubin Total 0.5 mg/dL (0.0-1.0); Blood Urea Nitrogen 9 mg/dL (9-16); Calcium 9.4 mg/dL (8.4-10.2); Carbon Dioxide 28 mmol/L (22-29); Chloride 107 mmol/L (96-108); Cholesterol 250 mg/dL (<200); Estimated Glomerular Filt Rate > 60; Glucose Fasting 111 mg/dL (60-99); HDL Cholesterol 39 mg/dL (>40); LDL Cholesterol Calculated 183 mg/dL (<100); Potassium 3.8 mmol/L (3.3-5.1); Sodium 141 mmol/L (135-145); Total Protein 7.8 g/dL (6.5-8.0); Triglycerides 143 mg/dL (<150)
[2024-01-09 07:58] LABS: Vitamin D 25-OH Total 10.9 ng/mL (>30)
== END 2024-01-09 06:13 | disposition home or self-care (01) ==
LOC: HO.LAB 06:12
PROVIDERS: PCP Internal Medicine; Visit Provider Internal Medicine
DX: Z00.00 Encounter for general adult medical examination without abnormal findings (principal); E55.9 Vitamin D deficiency, unspecified; E78.5 Hyperlipidemia, unspecified
CPT/HCPCS: 36415; 80053; 80061; 82306

== ENCOUNTER 2024-01-09 12:51 | Outpatient (AMB) | payer OTHER, SELFPAY ==
[2024-01-09 12:59] VITALS: BP 122/80; BMI 28.6
--- NOTE | 2024-01-09 12:59 | MHC.PC.OV ---
Vital Signs 01/09/24 12:59 Height 5 ft 8 in Weight 188 lb BMI 28.6 BP 122/80 Blood Pressure Location Lt brachial Position Sitting Intake Visit Reasons: PE Intake Note: Patient here for a physical exam Director Software Required: No Accompanied by: Self / Same As Patient Allergies hydroxyzine [HYDROXYZINE] Allergy (Intermediate, Verified 01/09/24 13:13) THROAT TIGHT , dry mouth Penicillins [PENICILLINS] Allergy (Intermediate, Verified 01/09/24 13:13) RASH pollen extracts [POLLEN] Allergy (Intermediate, Verified 01/09/24 13:13) THROAT GETS ITCHY tramadol Allergy (Intermediate, Verified 01/09/24 13:13) sleepiness Medication List - Last Reconciled 01/09/24 by Alejandra Spicer MD aripiprazole 10 mg PO DAILY buspirone 15 mg PO TID cetirizine 10 mg PO DAILY 90 days diclofenac potassium 50 mg PO BID PRN Dupixent Syringe (dupilumab) 300 mg (2 mL) subcut Q2W NS fluticasone propionate 50 mcg/actuation 1 spray intranasal DAILY 2 weeks incontinence pad, liner, disp As directed latex gloves (Latex Gloves, Large) As directed sumatriptan succinate mg PO PRN underpads (Bed Underpads) As directed Tobacco use date assessed: 11/17/23 Dental Screening Dental Screen Date: 11/17/23 Did you have a dental visit in the last 12 months?: No Did you have a dental problem in the last 6 months where you did not have access to dental care?: No Was dental information given to patient?: Patient has dentist HPI HPI Comments History of Present Illness Details This is a 58-year-old female with mild recurrent major depression that comes her physical exam. Depression stable with medications. Has mammogram was 2022 and was normal. Last Pap smear was 2022 and was normal. Last colonoscopy was 2013 and was normal. Aware of lab results and x-ray of the shoulder results. Has [place] risk score of 3.9% chance of having a heart attack or stroke in the next 10 years. No need for statins. Having a high-fiber diet. [facility] Medical History (Updated 01/09/24 @ 13:21 by Alejandra Spicer MD) Vitiligo Left foot pain Physical exam SALOMON (generalized anxiety disorder) Mild recurrent major depression Migraines GERD (gastroesophageal reflux disease) Asthma Cough Chronic allergic rhinitis Moderate persistent asthma Mixed hyperlipidemia Depression with anxiety Surgical History History of removal of cyst Family History Father CAD (coronary artery disease) Mother Chronic mental illness Stroke Paternal Grandmother Cancer Paternal Aunt Liver cancer Sister Multiple sclerosis Brother ALS (amyotrophic lateral sclerosis) Sister Schizophrenia Family/Other FH: mental illness Social History Housing: Apartment Alcohol intake: never Patient Tobacco Use Status: Never used Tobacco e-Cigarette/Vaping Use: Never Used Second Hand Smoke Exposure: No service: No Current occupational status: unemployed Cognitive needs: No Hearing needs: No Vision needs: Yes Female Reproductive History Menstrual Age of Menarche: 11 Questionnaire Thrive Questionnaire Date Thrive assessed: 11/17/23 SALOMON-7 AMB Questionnaire SALOMON-7 Date SALOMON - 7 assessed: 11/17/23 Source: Developed by Drs. Kayden Eldridge, Chelsy Julian, Cholo Garcia and colleagues, with an educational jeannie from [employer]. Review of Systems Const All systems reviewed & are unremarkable except as noted in HPI and below Eyes Reports no additional complaints, Denies change in vision and Denies other visual disturbances Card Denies chest pain at rest, Denies chest pain with activity, Denies edema, Denies irregular heart rhythm, Denies claudication, Denies dyspnea, Denies dyspnea on exertion, Denies orthopnea, Denies paroxysmal nocturnal dyspnea and Denies slow heart rate Resp Denies cough, Denies dyspnea and Denies dyspnea on exertion GI Denies abdominal pain, Denies change in bowel habits, Denies excessive flatus, Denies nausea and Denies vomiting Denies urinary incontinence, Denies urinary hesitancy and Denies urinary urgency Physical exam (Primary Care) Vital Signs: Last Vital Signs BP 122/80 01/09/24 12:59 BMI result Body Mass Index 28.6 Tobacco/Smoking Status: Tobacco use Status Tobacco use date assessed 11/17/23 01/09/24 13:05 Patient Tobacco Use Status Never used Tobacco 01/09/24 13:05 e-Cigarette/Vaping Use Never Used 01/09/24 13:05 Thrive Assessment: Date of Thrive Assessment Date Thrive assessed 11/17/23 01/09/24 13:05 Const Orientation/consciousness: patient oriented x3 HENDE Head: Yes normal to inspection, Yes normocephalic and Yes atraumatic Ears: external ears normal Eyes General: appearance normal, both eyes and all related structures Eyelids: Yes eyelids normal Conjunctivae: conjunctivae normal Neck Neck: Yes normal visual inspection and Yes supple Resp Effort & Inspection: normal respiratory effort Auscultation: clear to auscultation bilaterally Cardio Jugular venous distension: no JVD Rate: regular rate Rhythm: regular rhythm Heart sounds: S1 normal heart sound present and S2 normal heart sound present GI Inspection: Yes normal to inspection Palpation (GI): Soft to palpation and nontender Auscultation: normal bowel sounds Skin General skin exam: no rashes or lesions noted Neuro General: patient oriented x3 and no focal motor deficits Extrem General: Yes full ROM Psych Appearance: grossly normal Assessment and Plan Assessment & Plan (1) Physical exam: Code(s): Z00.00 - Encounter for general adult medical examination without abnormal findings Plan: Repeat in a year. (2) Mild recurrent major depression: Code(s): F33.0 - Major depressive disorder, recurrent, mild Plan: Continue Abilify. Orders: Referrals Open Access Screening Colonoscopy Referral Z12.11 - Encounter for screening for malignant neoplasm of colon Medications: New cholecalciferol (vitamin D3) 1,250 mcg PO QWEEK 13 caps 1RF 90 days E55.9 - Vitamin D deficiency, unspecified Coding Level of Care Code Est Pt Prev Care 40-64y(26257) Diagnoses Physical exam Z00.00 Mild recurrent major depression F33.0 Time Spent (min) 32
== END 2024-01-09 13:25 | disposition home or self-care (01) ==
PROVIDERS: PCP Internal Medicine; Visit Provider Internal Medicine
DX: Z00.00 Encounter for general adult medical examination without abnormal findings (principal); F33.0 Major depressive disorder, recurrent, mild
CPT/HCPCS: 99396

== ENCOUNTER 2024-02-07 13:43 | Outpatient (AMB) | payer OTHER, SELFPAY ==
[2024-02-07 13:49] VITALS: BP 116/70; BMI 28.5
--- NOTE | 2024-02-07 13:49 | MHC.OFFVIS ---
Vital Signs 02/07/24 13:49 Height 5 ft 8 in Weight 187 lb 6.287 oz BMI 28.5 BP 116/70 Intake Visit Reasons: ENDOSCOPY REGISTERED NURSE annual exam Technical Communication Teacher Required: Yes Technical Communication Teacher Language: Crusher Screen Repairer Name: Shannan AVILEZ Information Interpreted: non-clinical & clinical Director Television: Director Television Present (Shannan AVILEZ) Accompanied by: Self / Same As Patient Allergies hydroxyzine [HYDROXYZINE] Allergy (Intermediate, Verified 02/07/24 13:53) THROAT TIGHT , dry mouth Penicillins [PENICILLINS] Allergy (Intermediate, Verified 02/07/24 13:53) RASH pollen extracts [POLLEN] Allergy (Intermediate, Verified 02/07/24 13:53) THROAT GETS ITCHY tramadol Allergy (Intermediate, Verified 02/07/24 13:53) sleepiness Post menopausal: Yes HPI Comments Details: Presenting for annual exam. No complaints. Last Pap/HPV was negative in 01/30 Last Mammogram was BI-RADS 1 in 06/01 Last Colonoscopy was 10 years ago, the patient is due for another screening colonoscopy PFSH Medical History Vitiligo Left foot pain Physical exam SALOMON (generalized anxiety disorder) Mild recurrent major depression Migraines GERD (gastroesophageal reflux disease) Asthma Cough Chronic allergic rhinitis Moderate persistent asthma Mixed hyperlipidemia Depression with anxiety Surgical History History of removal of cyst Family History Father CAD (coronary artery disease) Mother Chronic mental illness Stroke Paternal Grandmother Cancer Paternal Aunt Liver cancer Sister Multiple sclerosis Brother ALS (amyotrophic lateral sclerosis) Sister Schizophrenia Family/Other FH: mental illness Social History Household Members: None Housing: Apartment Alcohol intake: never Patient Tobacco Use Status: Never used Tobacco e-Cigarette/Vaping Use: Never Used Second Hand Smoke Exposure: No service: No Current occupational status: unemployed Sexually active: No Sexual orientation: Straight/Heterosexual Gender identity: Female Cognitive needs: No Hearing needs: No Vision needs: Yes Female Reproductive History Menstrual Age of Menarche: 11 Menopause type: natural Total pregnancies: 2 Full term: 1 Number of Living Children: 1 Ab spontaneous: 1 Date of last pap smear: 02/04/23 History of abnormal pap smear: No History of STI: No Date of Mammogram: 06/03/23 History of abnormal mammogram: No Review of Systems Const All systems reviewed & are unremarkable except as noted in HPI and below Card Reports as per HPI Resp Reports as per HPI GI Reports as per HPI and Reports no additional complaints Reports as per HPI Physical Exam Vital Signs: Last Vital Signs BP 116/70 02/07/24 13:49 BMI result Body Mass Index 28.5 Const General: cooperative, healthy appearing and comfortable Chest Chest palpation & inspection: normal inspection of the chest and normal palpation of entire chest wall Breast/axilla inspection: normal inspection of the breasts and normal inspection of the axillae Breast/axilla palpation: normal palpation of the breasts, normal palpation of the axillae and no axillary lymphadenopathy Resp Effort & Inspection: normal respiratory effort Auscultation: clear to auscultation bilaterally Percussion: percussion normal Cardio Palpation: normal PMI Rate: regular rate Rhythm: regular rhythm Heart sounds: no murmurs and no rubs Peripheral pulses: Peripheral pulses 2+ throughout GI Inspection: Yes normal to inspection Palpation (GI): Soft to palpation, nontender, no guarding, not rigid and No hepatosplenomegaly present Percussion: Yes normal to percussion Auscultation: normal bowel sounds Rectal Exam - Female: deferred General: Yes bladder normal to palpation External Female Exam: No lesion Speculum Exam - Vagina: normal appearance of the vagina, normal palpation, normal vaginal discharge and not erythematous Speculum Exam - Cervix: normal appearance of the cervix and normal palpation Bimanual exam- vagina & uterus: normal bimanual exam, normal palpation, uterine size normal, bladder normal to palpation, consistency normal and normal palpation Bimanual Exam- Adnexa, other: normal adnexae, no masses and no tenderness Assessment & Plan Assessment & Plan (1) Well woman exam: Code(s): Z01.419 - Encounter for gynecological examination (general) (routine) without abnormal findings Category: Medical Plan: Co testing not indicated this year. Counseled the patient about the recommended dietary allowance of 1200 mg of Calcium & 600 IU of vitamin D. Instructions given to patient to schedule next screening Mammogram in 06/02, order placed. The patient was referred to GI for screening colonoscopy . The patient was instructed to perform monthly self-breast exams and schedule annual exam in a year. All questions answered and the patient verbalized understanding. Orders: Orders MM tomosynthesis screening BI 4 Months Z12.31 - Encounter for screening mammogram for malignant neoplasm of breast Referrals Gastroenterology Referral Z12.11 - Encounter for screening for malignant neoplasm of colon Coding Level of Care Code Est Pt Prev Care 40-64y(97671) Diagnoses Well woman exam Z01.419
== END 2024-02-07 15:40 | disposition home or self-care (01) ==
PROVIDERS: PCP Internal Medicine; Visit Provider Obstetrics & Gynecology
DX: Z01.419 Encounter for gynecological examination (general) (routine) without abnormal findings (principal)
CPT/HCPCS: 99396

== ENCOUNTER → 2024-02-07 13:43 | Outpatient (BNVA) | payer OTHER, SELFPAY | PROVIDERS: PCP Internal Medicine; Visit Provider Obstetrics & Gynecology ==

== ENCOUNTER 2024-03-09 09:22 | Outpatient (AMB) | payer OTHER, SELFPAY ==
[2024-03-09 09:25] VITALS: BP 126/70; PULSE 77; O2SAT 96; BMI 28.2
--- NOTE | 2024-03-09 09:25 | MHC.OFFVIS ---
Vital Signs 03/09/24 09:25 Height 5 ft 8 in Weight 185 lb 3.013 oz BMI 28.2 BP 126/70 Blood Pressure Location Lt brachial Position Sitting Pulse 77 Pulse Source Pulse Oximeter Pulse Oximetry (%) 96 Oxygen Delivery Method Room Air Intake Visit Reasons: Shortness of breath Drafter Electrical Required: No Allergies hydroxyzine [HYDROXYZINE] Allergy (Intermediate, Verified 03/09/24 09:29) THROAT TIGHT , dry mouth Penicillins [PENICILLINS] Allergy (Intermediate, Verified 03/09/24 09:29) RASH pollen extracts [POLLEN] Allergy (Intermediate, Verified 03/09/24 09:29) THROAT GETS ITCHY tramadol Allergy (Intermediate, Verified 03/09/24 09:29) sleepiness HPI Comments Details: The patient is a 58 y/o woman with a history of allergies and asthma. Received allergy shots for many years. Started developing a dry cough years ago. Recently underwent a metacholine challenge + hyper reactive airways and asthma. She was placed on Flovent. It has been partialy helpful. She states that she has been having of shortness of breath at night. She has been waking up with them. Denies any heartburn. Has not required any prednisone. We did optimize therapy with the use of Bevespi in addition to her Flovent and also using her rescue inhaler. She still requires a rescue inhaler couple times a day and her symptoms usually worse at nighttime. We did give her the reflux diet which he follows very closely. Her barium swallow did not show any reflux however. She should do should continue with the reflux diet closely. The patient did get allergy shots in the past. However, she has not received them many years. Based on the fact that she has maximizing her respiratory therapy will do additional testing to see if we can consider biologic therapy for uncontrolled asthma. She did follow up with Allergy. She had to stop her allergy medicine because of allergy testing. Therefore she is developing hives and also worsening wheezing. She has been using her rescue inhaler. Her x-ray she had back in May 2019 appear to be unremarkable. If the patient's symptoms persist even after starting allergy shots or biologic therapy will consider CT scan of the chest and also consider bronchoscopy to further address the issue. She continues on the singular in does have other allergy medicine. We did review her blood work demonstrating negative ALVIN and also negative studies for Sjogren's. She did have a RAST panel that was only positive for dogs. She also had a proper allergy testing demonstrating allergy to other animals as well. She is not exposed at this time. In the meantime her respiratory symptoms are stable so will hold off on biologic therapy. At this point her symptoms are getting worse and she is not responding to the current therapy, therefore, will start Xolair at this time. She does have an elevated IgE level and also has positive allergy testing based on the RAST. She did start the Xolair and has received 2 injections already. The therapy has been helpful. Her inhalers have been changed since she has not been able to get the Bevespi and she has continue just on the Flovent. Explained to her that she should be on the long-acting bronchodilators therefore I will start her on trelegy. In the meantime she is to continue the Xolair shots. 09/19/2020 the patient is here for pulmonary follow-up visit. Overall she is doing better. She continues on the Xolair injections. She is tolerating them well. At this point we will provide her with teaching in a prescription for an EpiPen. This is in case she has an allergic reaction to the medication. In the meantime the patient has been and her respiratory therapy. She has been adherent to the therapy. She does have intermittent cough fonz-ha-prwolpet severity. Denies any significant phlegm. Has not had any recent asthma exacerbations. Her nasal congestion also has improved to some degree. She still has a mild postnasal drip resulting in upper airway cough. Otherwise the patient is without any other complaints. 03/13/2021 the patient is here for pulmonary follow-up visit. She continues to struggle with her asthma. Has had increasing wheezing and shortness of breath and chest tightness. Moderate in severity. She has required additional prednisone. She continues on the Xolair. Does not appear to have good control of her asthma on the Xolair at this time. Therefore, will go ahead and request blood work and also start the process to switch over to Dupixent. In the meantime the patient is maximize with respiratory therapy initially on Trelegy, but then it was not covered. Therefore Breo was requested. She continues on Incruse. She was referred to Allergy, but it has taken a longer time for her to get an appointment. Therefore we will go ahead and switch her to Dupixent from the Xolair at this time. She will also need additional prednisone. 02/07/2023 the patient is here for a pulmonary follow-up visit. Overall the patient has been doing very well. She continues with Dupixent every 2 weeks. Her asthma has been much better controlled. She has not required any prednisone the quality of life is a lot better. She is very thankful for the Dupixent in hopeful to continue the therapy at this time. However, she started developing vitiligo and appears to be getting worse. She is wondering if it can be releated to the Dupixent. No adverse effects of vitiligo on the package insert, however, I did review a case report of a person who developed worsening vitiligo from the dupixent. Therefore, I did give the patient information about Tezspire. If she develops worsening vitiligo she will go to change the dupixent to Tezspire. 03/09/2024 the patient is here for a pulmonary follow-up visit. She continues to do very well on the Dupixent. The Dupixent as really normalize for asthma in her allergies. She continues to take injections every 2 weeks. She has concerned about the vitiligo her. Does not appear to be significantly worse when compared to her previous visit about a year ago. Although she is going to monitor closely. Specially the vitiligo happens in the face. Is now well documented that the Dupixent can potentially precipitate the bull's vitiligo they have the tendency of developing it. Therefore, they look at her blood work. 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 Therefore, would not be unreasonable to consider switching over to Fasenra or Tezspire in the future. Depending how she responds to the Dupixent and make sure that the vitiligo this worsened. Indeed on the biologic therapy her asthma has been significantly well controlled she will continue for now. [facility] Medical History Vitiligo Left foot pain Physical exam SALOMON (generalized anxiety disorder) Mild recurrent major depression Migraines GERD (gastroesophageal reflux disease) Asthma Cough Chronic allergic rhinitis Moderate persistent asthma Mixed hyperlipidemia Depression with anxiety Surgical History History of removal of cyst Family History Father CAD (coronary artery disease) Mother Chronic mental illness Stroke Paternal Grandmother Cancer Paternal Aunt Liver cancer Sister Multiple sclerosis Brother ALS (amyotrophic lateral sclerosis) Sister Schizophrenia Family/Other FH: mental illness Social History Household Members: None Housing: Apartment Alcohol intake: never Patient Tobacco Use Status: Never used Tobacco e-Cigarette/Vaping Use: Never Used Second Hand Smoke Exposure: No service: No Current occupational status: unemployed Sexual orientation: Straight/Heterosexual Gender identity: Female Cognitive needs: No Hearing needs: No Vision needs: Yes Female Reproductive History Menstrual Age of Menarche: 11 Review of Systems Const Denies fever(s) Eyes Reports no additional complaints, Denies change in vision and Denies other visual disturbances ENT Denies change in voice, Denies nasal discharge and Denies sinus pain Card Reports as per HPI, Reports no additional complaints, Denies chest pain, Denies chest pain with activity, Denies dyspnea and Denies dyspnea on exertion Resp Reports as per HPI, Reports no additional complaints, Reports cough, Denies pain on inspiration, Denies pain with cough, Denies dyspnea, Denies dyspnea on exertion and Denies wheezing GI Reports as per HPI, Reports no additional complaints, Denies abdominal pain, Denies change in bowel habits, Denies change in stool character, Denies early satiety, Denies dyspepsia, Denies heartburn, Denies nausea and Denies vomiting Reports as per HPI, Denies hematuria and Denies dysuria Musc Denies atrophy, Denies deformity and Denies limited range of motion Skin/Breast Reports change in pigmentation, Reports changing lesions, Denies pruritus and Denies erythema Aller/Immun Denies wheezing Physical Exam Vital Signs: Last Vital Signs Pulse 77 03/09/24 09:25 BP 126/70 03/09/24 09:25 Pulse Ox 96 03/09/24 09:25 Oxygen Delivery Method Room Air 03/09/24 09:25 BMI result Body Mass Index 28.2 Const General: cooperative, healthy appearing and comfortable Neck Neck: Yes normal visual inspection, Yes full ROM and Yes no lymphadenopathy Chest Chest palpation & inspection: normal inspection of the chest Breast/axilla palpation: normal palpation of the breasts, normal palpation of the axillae and no axillary lymphadenopathy Resp Effort & Inspection: normal respiratory effort Auscultation: clear to auscultation bilaterally and no wheezes Cardio Palpation: normal PMI Rate: regular rate Rhythm: regular rhythm Heart sounds: no murmurs and no rubs Peripheral pulses: Peripheral pulses 2+ throughout GI Palpation (GI): Soft to palpation Skin Other: Lesions: lesion noted (vitiligo upper extremities) Assessment & Plan Assessment & Plan (1) Asthma: Code(s): J45.909 - Unspecified asthma, uncomplicated Category: Medical Qualifiers: Asthma complication type: uncomplicated Asthma persistence: persistent Asthma severity: severe Qualified Code(s): J45.50 - Severe persistent asthma, uncomplicated (2) Cough: Code(s): R05 - Cough Category: Medical Qualifiers: Cough type: chronic Qualified Code(s): R05.3 - Chronic cough (3) Chronic allergic rhinitis: Code(s): J30.9 - Allergic rhinitis, unspecified Category: Medical (4) GERD (gastroesophageal reflux disease): Code(s): K21.9 - Gastro-esophageal reflux disease without esophagitis Category: Medical Qualifiers: Esophagitis bleeding: without hemorrhage Esophagitis presence: with esophagitis Qualified Code(s): K21.00 - Gastro-esophageal reflux disease with esophagitis, without bleeding (5) Vitiligo: Comment: ?progression due to Dupixent Code(s): L80 - Vitiligo Category: Medical (6) Moderate persistent asthma: Code(s): J45.40 - Moderate persistent asthma, uncomplicated Category: Medical Qualifiers: Asthma complication type: uncomplicated Qualified Code(s): J45.40 - Moderate persistent asthma, uncomplicated Plan continue Symbicort JAY as needed continue Dupixent injections every 2 weeks. consider changing to Fasenra or Tezspire if worsening rash/hypigmentation reflux diet laboratories follow-up 6 months Orders: Orders Complete Blood Count Auto Diff 03/09/24 J45.40 - Moderate persistent asthma, uncomplicated Immunoglobulin E 03/09/24 J45.40 - Moderate persistent asthma, uncomplicated Coding Level of Care Code Est Pt Level 4 (81327) Diagnoses Severe persistent asthma without complication J45.50 Asthma complication type: uncomplicated Asthma persistence: persistent Asthma severity: severe Chronic cough R05.3 Cough type: chronic Chronic allergic rhinitis J30.9 Gastroesophageal reflux disease with esophagitis without hemorrhage K21.00 Esophagitis bleeding: without hemorrhage Esophagitis presence: with esophagitis Vitiligo L80 Moderate persistent asthma without complication J45.40 Asthma complication type: uncomplicated Time Spent (min) 17
== END 2024-03-09 09:50 | disposition home or self-care (01) ==
PROVIDERS: PCP Internal Medicine; Visit Provider Hospitalist
DX: J45.50 Severe persistent asthma, uncomplicated (principal); R05.3 Chronic cough; J30.9 Allergic rhinitis, unspecified; K21.00 Gastro-esophageal reflux disease with esophagitis, without bleeding; L80 Vitiligo; J45.40 Moderate persistent asthma, uncomplicated
CPT/HCPCS: 99214

== ENCOUNTER → 2024-03-09 09:22 | Outpatient (BNVA) | payer OTHER, SELFPAY | PROVIDERS: PCP Internal Medicine; Visit Provider Hospitalist | DX: J45.50 Severe persistent asthma, uncomplicated (principal); J30.9 Allergic rhinitis, unspecified; R05.3 Chronic cough; K21.00 Gastro-esophageal reflux disease with esophagitis, without bleeding; L80 Vitiligo | CPT/HCPCS: 99212 ==

== ENCOUNTER → 2024-04-04 08:38 | Outpatient (BNVA) | payer OTHER, SELFPAY | PROVIDERS: PCP Internal Medicine; Visit Provider Nurse Practitioner Family ==

== ENCOUNTER 2024-04-17 10:10 | Outpatient (AMB) | payer OTHER, SELFPAY ==
[2024-04-17 10:14] VITALS: PULSE 77; O2SAT 98; BMI 28.7
--- NOTE | 2024-04-17 10:14 | MHC.OFFVIS ---
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 Received allergy shots for many years. Started developing a dry cough years ago. Recently underwent a metacholine challenge + hyper reactive airways and asthma. She was placed on Flovent. It has been partialy helpful. She states that she has been having of shortness of breath at night. She has been waking up with them. Denies any heartburn. Has not required any prednisone. We did optimize therapy with the use of Bevespi in addition to her Flovent and also using her rescue inhaler. She still requires a rescue inhaler couple times a day and her symptoms usually worse at nighttime. We did give her the reflux diet which he follows very closely. Her barium swallow did not show any reflux however. She should do should continue with the reflux diet closely. The patient did get allergy shots in the past. However, she has not received them many years. Based on the fact that she has maximizing her respiratory therapy will do additional testing to see if we can consider biologic therapy for uncontrolled asthma. She did follow up with Allergy. She had to stop her allergy medicine because of allergy testing. Therefore she is developing hives and also worsening wheezing. She has been using her rescue inhaler. Her x-ray she had back in May 2019 appear to be unremarkable. If the patient's symptoms persist even after starting allergy shots or biologic therapy will consider CT scan of the chest and also consider bronchoscopy to further address the issue. She continues on the singular in does have other allergy medicine. We did review her blood work demonstrating negative ALVIN and also negative studies for Sjogren's. She did have a RAST panel that was only positive for dogs. She also had a proper allergy testing demonstrating allergy to other animals as well. She is not exposed at this time. In the meantime her respiratory symptoms are stable so will hold off on biologic therapy. At this point her symptoms are getting worse and she is not responding to the current therapy, therefore, will start Xolair at this time. She does have an elevated IgE level and also has positive allergy testing based on the RAST. She did start the Xolair and has received 2 injections already. The therapy has been helpful. Her inhalers have been changed since she has not been able to get the Bevespi and she has continue just on the Flovent. Explained to her that she should be on the long-acting bronchodilators therefore I will start her on trelegy. In the meantime she is to continue the Xolair shots. 09/19/2020 the patient is here for pulmonary follow-up visit. Overall she is doing better. She continues on the Xolair injections. She is tolerating them well. At this point we will provide her with teaching in a prescription for an EpiPen. This is in case she has an allergic reaction to the medication. In the meantime the patient has been and her respiratory therapy. She has been adherent to the therapy. She does have intermittent cough stry-yh-cflmrnmp severity. Denies any significant phlegm. Has not had any recent asthma exacerbations. Her nasal congestion also has improved to some degree. She still has a mild postnasal drip resulting in upper airway cough. Otherwise the patient is without any other complaints. 03/13/2021 the patient is here for pulmonary follow-up visit. She continues to struggle with her asthma. Has had increasing wheezing and shortness of breath and chest tightness. Moderate in severity. She has required additional prednisone. She continues on the Xolair. Does not appear to have good control of her asthma on the Xolair at this time. Therefore, will go ahead and request blood work and also start the process to switch over to Dupixent. In the meantime the patient is maximize with respiratory therapy initially on Trelegy, but then it was not covered. Therefore Breo was requested. She continues on Incruse. She was referred to Allergy, but it has taken a longer time for her to get an appointment. Therefore we will go ahead and switch her to Dupixent from the Xolair at this time. She will also need additional prednisone. 02/07/2023 the patient is here for a pulmonary follow-up visit. Overall the patient has been doing very well. She continues with Dupixent every 2 weeks. Her asthma has been much better controlled. She has not required any prednisone the quality of life is a lot better. She is very thankful for the Dupixent in hopeful to continue the therapy at this time. However, she started developing vitiligo and appears to be getting worse. She is wondering if it can be releated to the Dupixent. No adverse effects of vitiligo on the package insert, however, I did review a case report of a person who developed worsening vitiligo from the dupixent. Therefore, I did give the patient information about Tezspire. If she develops worsening vitiligo she will go to change the dupixent to Tezspire. 03/09/2024 the patient is here for a pulmonary follow-up visit. She continues to do very well on the Dupixent. The Dupixent as really normalize for asthma in her allergies. She continues to take injections every 2 weeks. She has concerned about the vitiligo her. Does not appear to be significantly worse when compared to her previous visit about a year ago. Although she is going to monitor closely. Specially the vitiligo happens in the face. Is now well documented that the Dupixent can potentially precipitate the bull's vitiligo they have the tendency of developing it. Therefore, they look at her blood work. 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 Therefore, would not be unreasonable to consider switching over to Fasenra or Tezspire in the future. Depending how she responds to the Dupixent and make sure that the vitiligo this worsened. Indeed on the biologic therapy her asthma has been significantly well controlled she will continue for now. 04/17/2024 the patient is here for a pulmonary visit. She recently was starting to get life insurance and she could not get the right premium because of the question COPD. We did do a spirometry in the office. Her lung mechanics are normal. The patient has a history of asthma but no evidence of any COPD at this time. The patient is not at risk of developing COPD. I did give her a letter stating that fact. She is continues on Dupixent. Her vitiligo is not getting any worse so will continue for now. She has also using the Symbicort with good effect. From a respiratory status the patient is doing well. She is also dealing with other musculoskeletal issues which she is currently being evaluated by primary care doctor. Otherwise patient is without any other concerns or complaints. Will follow-up in the next year. If patient has any issues prior to that she will call for an earlier assessment. [facility] Medical History (Updated 04/17/24 @ 21:31 by Alfnoso Carbajal MD) Vitiligo Left foot pain Physical exam SALOMON (generalized anxiety disorder) Mild recurrent major depression Migraines GERD (gastroesophageal reflux disease) Asthma Cough Chronic allergic rhinitis Moderate persistent asthma Mixed hyperlipidemia Depression with anxiety Surgical History (Updated 04/04/24 @ 08:53 by LILLIE Hoyt) History of colonoscopy (~10/2013) History of removal of cyst Family History Father CAD (coronary artery disease) Mother Chronic mental illness Stroke Paternal Grandmother Cancer Paternal Aunt Liver cancer Sister Multiple sclerosis Brother ALS (amyotrophic lateral sclerosis) Sister Schizophrenia Family/Other FH: mental illness Social History Household Members: None Housing: Apartment Alcohol intake: never Patient Tobacco Use Status: Never used Tobacco e-Cigarette/Vaping Use: Never Used Second Hand Smoke Exposure: No service: No Current occupational status: unemployed Sexual orientation: Straight/Heterosexual Gender identity: Female Cognitive needs: No Hearing needs: No Vision needs: Yes Female Reproductive History Menstrual Age of Menarche: 11 Review of Systems Const Denies fever(s) Eyes Reports no additional complaints, Denies change in vision and Denies other visual disturbances ENT Denies change in voice, Denies nasal discharge and Denies sinus pain Card Reports no additional complaints, Denies chest pain, Denies chest pain with activity, Denies dyspnea and Denies dyspnea on exertion Resp Reports as per HPI, Reports no additional complaints, Reports cough, Denies pain on inspiration, Denies pain with cough, Denies dyspnea, Denies dyspnea on exertion and Denies wheezing GI Reports as per HPI, Reports no additional complaints, Denies abdominal pain, Denies change in bowel habits, Denies change in stool character, Denies early satiety, Denies dyspepsia, Denies heartburn, Denies nausea and Denies vomiting Reports as per HPI, Denies hematuria and Denies dysuria Musc Denies atrophy, Denies deformity and Denies limited range of motion Skin/Breast Reports change in pigmentation, Reports changing lesions, Denies pruritus and Denies erythema Aller/Immun Denies wheezing Physical Exam Vital Signs: Last Vital Signs Pulse 77 04/17/24 10:14 Pulse Ox 98 04/17/24 10:14 Oxygen Delivery Method Room Air 04/17/24 10:14 BMI result Body Mass Index 28.7 Const General: cooperative, healthy appearing and comfortable Neck Neck: Yes normal visual inspection, Yes full ROM and Yes no lymphadenopathy Chest Chest palpation & inspection: normal inspection of the chest Breast/axilla palpation: normal palpation of the breasts, normal palpation of the axillae and no axillary lymphadenopathy Resp Effort & Inspection: normal respiratory effort Auscultation: clear to auscultation bilaterally and no wheezes Cardio Palpation: normal PMI Rate: regular rate Rhythm: regular rhythm Heart sounds: no murmurs and no rubs Peripheral pulses: Peripheral pulses 2+ throughout GI Palpation (GI): Soft to palpation Skin Other: Lesions: lesion noted (vitiligo upper extremities) Office Procedures Spirometry Testing Spirometry Comments: Spirometry done in the office, Dr. Carbajal has the results results scanned to her chart. 71811- Spirometry Assessment & Plan Assessment & Plan (1) Moderate persistent asthma: Comment: no evidence of COPD Code(s): J45.40 - Moderate persistent asthma, uncomplicated Category: Medical Qualifiers: Asthma complication type: uncomplicated Qualified Code(s): J45.40 - Moderate persistent asthma, uncomplicated (2) Cough: Code(s): R05 - Cough Category: Medical Qualifiers: Cough type: chronic Qualified Code(s): R05.3 - Chronic cough (3) Chronic allergic rhinitis: Code(s): J30.9 - Allergic rhinitis, unspecified Category: Medical (4) GERD (gastroesophageal reflux disease): Code(s): K21.9 - Gastro-esophageal reflux disease without esophagitis Category: Medical Qualifiers: Esophagitis bleeding: without hemorrhage Esophagitis presence: with esophagitis Qualified Code(s): K21.00 - Gastro-esophageal reflux disease with esophagitis, without bleeding (5) Vitiligo: Comment: ?progression due to Dupixent Code(s): L80 - Vitiligo Category: Medical Plan continue Symbicort JAY as needed continue Dupixent injections every 2 weeks. consider changing to Fasenra or Tezspire if worsening rash/hypigmentation reflux diet laboratories follow-up 6-8 months Orders: Orders AMB Spirometry Testing Today J45.40 - Moderate persistent asthma, uncomplicated Coding Level of Care Code Est Pt Level 4 (00864) Diagnoses Moderate persistent asthma without complication J45.40 Asthma complication type: uncomplicated Chronic cough R05.3 Cough type: chronic Chronic allergic rhinitis J30.9 Gastroesophageal reflux disease with esophagitis without hemorrhage K21.00 Esophagitis bleeding: without hemorrhage Esophagitis presence: with esophagitis Vitiligo L80 CPT Codes Spirometry - CPT: 04176- Spirometry ([id number]) Time Spent (min) 16
== END 2024-04-17 10:59 | disposition home or self-care (01) ==
PROVIDERS: PCP Internal Medicine; Visit Provider Hospitalist
DX: J45.40 Moderate persistent asthma, uncomplicated (principal); R05.3 Chronic cough; J30.9 Allergic rhinitis, unspecified; K21.00 Gastro-esophageal reflux disease with esophagitis, without bleeding; L80 Vitiligo
CPT/HCPCS: 94010; 99214

== ENCOUNTER → 2024-04-17 10:10 | Outpatient (BNVA) | payer OTHER, SELFPAY | PROVIDERS: PCP Internal Medicine; Visit Provider Hospitalist | DX: J45.40 Moderate persistent asthma, uncomplicated (principal); R05.3 Chronic cough; J30.9 Allergic rhinitis, unspecified; K21.00 Gastro-esophageal reflux disease with esophagitis, without bleeding; L80 Vitiligo | CPT/HCPCS: 94010; 99212 ==

== ENCOUNTER 2024-06-08 11:29 | Outpatient (REF) | payer OTHER, SELFPAY ==
--- NOTE | ~2024-06-08 | MM_ITS ---
EXAMINATION: MM SCREENING DIGITAL BREAST TOMOSYNTHESIS, BILATERAL CLINICAL INFORMATION: Screening. Asymptomatic. COMPARISON: Mammography: Comparison is made with available priors TECHNIQUE: Digital breast mammography with tomosynthesis is performed in both the craniocaudal and mediolateral oblique views along with computer-aided detection (CAD). FINDINGS: There are scattered areas of fibroglandular density (ACR BI-RADS breast composition Category b). There are no significant masses, abnormal calcifications, or other abnormalities. MM/MM tomosynthesis screening BI IMPRESSION: No mammographic evidence of malignancy. ASSESSMENT: BI-RADS BI-RADS 1 - Negative RECOMMENDATION: Routine annual mammography screening. 1 year F/U This examination should not preclude the clinical evaluation of a suspicious palpable abnormality. This patient's information was entered into a reminder system with a target due date for their next mammogram. Electronically signed by: Betina Lilly DO 06/30/2024 10:37 PM EDT
== END 2024-06-08 11:30 | disposition home or self-care (01) ==
LOC: HO.MAMMO 11:29
PROVIDERS: PCP Internal Medicine; Visit Provider Obstetrics & Gynecology
DX: Z12.31 Encounter for screening mammogram for malignant neoplasm of breast (principal)
CPT/HCPCS: 77063; 77067

== ENCOUNTER → 2024-06-08 11:45 | Outpatient (BNV) | payer OTHER, SELFPAY | PROVIDERS: PCP Internal Medicine; Visit Provider Internal Medicine | DX: Z12.31 Encounter for screening mammogram for malignant neoplasm of breast (principal) | CPT/HCPCS: 77063; 77067 ==

== ENCOUNTER 2024-07-16 06:35 | Outpatient (REF) | payer OTHER, SELFPAY | END 2024-07-16 06:36 | disposition home or self-care (01) | LOC: HO.LAB 06:35 | PROVIDERS: PCP Internal Medicine; Visit Provider Internal Medicine | DX: F33.0 Major depressive disorder, recurrent, mild (principal); J45.40 Moderate persistent asthma, uncomplicated; F41.1 Generalized anxiety disorder; G43.009 Migraine without aura, not intractable, without status migrainosus; Z79.899 Other long term (current) drug therapy; Z28.21 Immunization not carried out because of patient refusal | CPT/HCPCS: 90471; 99212 ==

== ENCOUNTER 2024-07-16 13:23 | Outpatient (AMB) | payer OTHER, SELFPAY ==
--- NOTE | 2024-07-16 13:36 | A.OFFPC_ITS ---
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 Accompanied by: Self / Same As Patient Allergies dupilumab [From Dupixent Pen] Allergy (Intermediate, Verified 07/16/24 13:54) Hives hydroxyzine [HYDROXYZINE] Allergy (Intermediate, Verified 07/16/24 13:54) THROAT TIGHT , dry mouth Penicillins [PENICILLINS] Allergy (Intermediate, Verified 07/16/24 13:54) RASH pollen extracts [POLLEN] Allergy (Intermediate, Verified 07/16/24 13:54) THROAT GETS ITCHY tramadol Allergy (Intermediate, Verified 07/16/24 13:54) sleepiness Medication List - Last Reconciled 07/16/24 by Alejandra Spicer MD aripiprazole 10 mg PO DAILY bisacodyl (Dulcolax (bisacodyl)) 20 mg (4 x 5 mg) PO ONCE 1 day budesonide-formoterol 160-4.5 mcg/actuation 2 puffs inhalation BID buspirone 15 mg PO TID cetirizine 10 mg PO DAILY 90 days cholecalciferol (vitamin D3) 1,250 mcg PO QWEEK 90 days diclofenac potassium 50 mg PO BID PRN incontinence pad, liner, disp As directed latex gloves (Latex Gloves, Large) As directed polyethylene glycol 3350 (Miralax) 238 grams PO ONCE sumatriptan succinate mg PO PRN underpads (Bed Underpads) As directed Tobacco use date assessed: 11/17/23 Dental Screening Dental Screen Date: 11/17/23 HPI HPI Comments History of Present Illness Details This is a 58-year-old female with mild major depression, moderate asthma, migraines and anxiety that comes today for follow-up on her conditions. Depression and anxiety has been stable with medications and follow by Psychiatry. Asthma stable with long-acting inhaler. Migraines are less frequent and less intense. No chest pain or shortness on breath. [facility] Medical History Vitiligo Left foot pain Physical exam SALOMON (generalized anxiety disorder) Mild recurrent major depression Migraines GERD (gastroesophageal reflux disease) Asthma Cough Chronic allergic rhinitis Moderate persistent asthma Mixed hyperlipidemia Depression with anxiety Surgical History History of colonoscopy (~10/2013) History of removal of cyst Family History Father CAD (coronary artery disease) Mother Chronic mental illness Stroke Paternal Grandmother Cancer Paternal Aunt Liver cancer Sister Multiple sclerosis Brother ALS (amyotrophic lateral sclerosis) Sister Schizophrenia Family/Other FH: mental illness Social History Household Members: None Housing: Apartment Alcohol intake: never Patient Tobacco Use Status: Never used Tobacco e-Cigarette/Vaping Use: Never Used Second Hand Smoke Exposure: No service: No Current occupational status: unemployed Sexual orientation: Straight/Heterosexual Gender identity: Female Cognitive needs: No Hearing needs: No Vision needs: Yes Female Reproductive History Menstrual Age of Menarche: 11 Questionnaire Thrive Questionnaire Date Thrive assessed: 11/17/23 Are you currently unemployed and looking for a job?: I choose not to answer this question SALOMON-7 AMB Questionnaire SALOMON-7 Date SALOMON - 7 assessed: 11/17/23 Source: Developed by Drs. Kayden Eldridge, Chelsy Julian, Cholo Garcia and colleagues, with an educational jeannie from [employer]. Review of Systems Const All systems reviewed & are unremarkable except as noted in HPI and below Card Denies chest pain at rest, Denies chest pain with activity, Denies edema, Denies irregular heart rhythm, Denies claudication, Denies dyspnea, Denies dyspnea on exertion, Denies orthopnea, Denies paroxysmal nocturnal dyspnea and Denies slow heart rate Resp Denies cough, Denies dyspnea and Denies dyspnea on exertion GI Denies abdominal pain, Denies change in bowel habits, Denies excessive flatus, Denies nausea and Denies vomiting Denies urinary incontinence, Denies urinary hesitancy and Denies urinary urgency Musc Denies atrophy, Denies deformity and Denies limited range of motion Skin/Breast Denies bleeding lesions, Denies changing lesions and Denies rash Physical exam (Primary Care) Vital Signs: Last Vital Signs BP 118/80 07/16/24 13:38 BMI result Body Mass Index 28.3 Tobacco/Smoking Status: Tobacco use Status Tobacco use date assessed 11/17/23 07/16/24 13:37 Patient Tobacco Use Status Never used Tobacco 07/16/24 13:37 e-Cigarette/Vaping Use Never Used 07/16/24 13:37 Thrive Assessment: Date of Thrive Assessment Date Thrive assessed 11/17/23 07/16/24 13:37 Resp Effort & Inspection: normal respiratory effort Auscultation: clear to auscultation bilaterally Cardio Jugular venous distension: no JVD Rate: regular rate Rhythm: regular rhythm Heart sounds: S1 normal heart sound present and S2 normal heart sound present Extrem General: Yes full ROM Office Procedures Flu Questionnaire Does the patient have a severe egg allergy?: No Immunizations Fluarix Triv [id number] (PF) 45 mcg (15 mcg x 3)/0.5 mL IM syringe Performing Provider: Alejandra Spicer MD [facility] [place] Documented (not given) by: RAGHAV Louise on 07/16/24 13:43 Reason Not Given: Patient Refused Coding Level of Care Code Est Pt Level 4 (27445) Complex EM visit Add On G2211 Diagnoses Mild recurrent major depression F33.0 Moderate persistent asthma without complication J45.40 Asthma complication type: uncomplicated SALOMON (generalized anxiety disorder) F41.1 Migraine without aura and without status migrainosus, not intractable G43.009 Migraine type: without aura Status migrainosus presence: without status migrainosus Intractability: not intractable Time Spent (min) 22 Assessment & Plan Assessment & Plan (1) Mild recurrent major depression: Code(s): F33.0 - Major depressive disorder, recurrent, mild Category: Medical Plan: Continue Abilify. Follow-up with psychiatry. (2) Moderate persistent asthma: Comment: no evidence of COPD Code(s): J45.40 - Moderate persistent asthma, uncomplicated Category: Medical Qualifiers: Asthma complication type: uncomplicated Qualified Code(s): J45.40 - Moderate persistent asthma, uncomplicated Plan: Continue long-acting inhaler. Use rescue inhaler as needed. Follow-up with pulmonology. (3) SALOMON (generalized anxiety disorder): Code(s): F41.1 - Generalized anxiety disorder Category: Medical Plan: Continue buspirone. Follow-up with psychiatry. (4) Migraines: Code(s): G43.909 - Migraine, unspecified, not intractable, without status migrainosus Category: Medical Qualifiers: Migraine type: without aura Status migrainosus presence: without status migrainosus Intractability: not intractable Qualified Code(s): G43.009 - Migraine without aura, not intractable, without status migrainosus Plan: Continue Triptan as needed. Follow-up with Neurology. Orders: Orders Influenza [id number] Immunization Today Z23 - Encounter for immunization Lipid Panel Today E78.5 - Hyperlipidemia, unspecified Comprehensive [place]. Panel Fast Today M51.36 - Other intervertebral disc degeneration, lumbar region
[2024-07-16 13:38] VITALS: BP 118/80; BMI 28.3
== END 2024-07-16 14:06 | disposition home or self-care (01) ==
PROVIDERS: PCP Internal Medicine; Visit Provider Internal Medicine
DX: F33.0 Major depressive disorder, recurrent, mild (principal); J45.40 Moderate persistent asthma, uncomplicated; F41.1 Generalized anxiety disorder; G43.009 Migraine without aura, not intractable, without status migrainosus; Z23 Encounter for immunization

== ENCOUNTER 2024-09-07 06:38 | Outpatient (REF) | payer OTHER, SELFPAY ==
[2024-09-07 06:50] LABS: MANUAL DIFF FLAG NO
[2024-09-07 07:51] LABS: Basophils Absolute Auto 0.1 X10*3/uL (0.0-0.2); Basophils Percent Auto 0.9 % (0-2); Eosinophils Percent Auto 0.1 % (0-4); Hematocrit 41.3 % (37.0-47.0); Hemoglobin 13.5 g/dl (12.0-16.0); Imm Gran Abs Auto 0.02 X10*3/uL (0.00-0.03); Imm Gran Pct Auto 0.3 % (0.0-0.4); Lymphocytes Absolute Auto 3.7 X10*3/uL (1.2-4.9); Lymphocytes Percent Auto 47.3 % (20-40); Mean Corpuscular HGB Conc 32.7 g/dl (31.0-35.0); Mean Corpuscular Hemoglobin 29.5 pg (27.0-33.0); Mean Corpuscular Volume 90.4 fL (80.0-98.0); Mean Platelet Volume 9.9 fL (9.4-12.3); Monocytes Absolute Auto 0.6 X10*3/uL (0.1-1.2); Monocytes Percent Auto 7.3 % (2-11); Neutrophils Absolute Auto 3.5 x10*3/uL (2.0-8.3); Neutrophils Percent Auto 44.1 % (45-73); Platelet Count 277 X10*3/uL (160-400); Red Blood Count 4.57 X10*6/uL (4.20-5.50); Red Cell Distribution Width 13.2 % (11.0-16.0); White Blood Count 7.9 X10*3/uL (4.8-10.8)
[2024-09-07 08:28] LABS: Alanine Aminotransferase 27 U/L (0-31); Albumin Level 4.2 g/dL (3.5-5.0); Alkaline Phosphatase 106 U/L (39-117); Anion Gap 14 (12-20); Aspartate Amino Transferase 23 U/L (5-31); Bilirubin Total 0.4 mg/dL (0.0-1.0); Blood Urea Nitrogen 23 mg/dL (9-16); Calcium 9.4 mg/dL (8.4-10.2); Carbon Dioxide 26 mmol/L (22-29); Chloride 108 mmol/L (96-108); Cholesterol 245 mg/dL (<200); Estimated Glomerular Filt Rate 55; Glucose Fasting 119 mg/dL (60-99); HDL Cholesterol 38 mg/dL (>40); LDL Cholesterol Calculated 160 mg/dL (<100); Potassium 4.5 mmol/L (3.3-5.1); Sodium 143 mmol/L (135-145); Total Protein 7.6 g/dL (6.5-8.0); Triglycerides 238 mg/dL (<150)
[2024-09-10 22:08] LABS: Immunoglobulin E 11 kU/L (<OR=114)
== END 2024-09-07 06:39 | disposition home or self-care (01) ==
LOC: HO.LAB 06:38
PROVIDERS: Absent Provider Internal Medicine; PCP Internal Medicine; Visit Provider Hospitalist
DX: M51.360 Other intervertebral disc degeneration, lumbar region with discogenic back pain only (principal); E78.5 Hyperlipidemia, unspecified; J45.40 Moderate persistent asthma, uncomplicated
CPT/HCPCS: 36415; 80053; 80061; 82785; 85025

== ENCOUNTER 2024-09-10 12:59 | Outpatient (AMB) | payer OTHER, SELFPAY ==
[2024-09-10 13:11] VITALS: BP 104/67; PULSE 73; O2SAT 96; BMI 29.0
--- NOTE | 2024-09-10 13:11 | A.OFFVIS_ITS ---
Vital Signs 3 09/10/24 13:11 Height 5 ft 8 in Weight 190 lb 11.198 oz BMI 29.0 BP 104/67 Blood Pressure Location Lt brachial Position Sitting Pulse 73 Pulse Source Doppler Pulse Oximetry (%) 96 Oxygen Delivery Method Room Air Intake Visit Reasons: Shortness of breath Allergies dupilumab [From Dupixent Pen] Allergy (Intermediate, Verified 09/10/24 13:16) Hives hydroxyzine [HYDROXYZINE] Allergy (Intermediate, Verified 09/10/24 13:16) THROAT TIGHT , dry mouth Penicillins [PENICILLINS] Allergy (Intermediate, Verified 09/10/24 13:16) RASH pollen extracts [POLLEN] Allergy (Intermediate, Verified 09/10/24 13:16) THROAT GETS ITCHY tramadol Allergy (Intermediate, Verified 09/10/24 13:16) sleepiness HPI Comments Details: The patient is a 58 y/o woman with a history of allergies and asthma. Received allergy shots for many years. Started developing a dry cough years ago. Recently underwent a metacholine challenge + hyper reactive airways and asthma. She was placed on Flovent. It has been partialy helpful. She states that she has been having of shortness of breath at night. She has been waking up with them. Denies any heartburn. Has not required any prednisone. We did optimize therapy with the use of Bevespi in addition to her Flovent and also using her rescue inhaler. She still requires a rescue inhaler couple times a day and her symptoms usually worse at nighttime. We did give her the reflux diet which he follows very closely. Her barium swallow did not show any reflux however. She should do should continue with the reflux diet closely. The patient did get allergy shots in the past. However, she has not received them many years. Based on the fact that she has maximizing her respiratory therapy will do additional testing to see if we can consider biologic therapy for uncontrolled asthma. She did follow up with Allergy. She had to stop her allergy medicine because of allergy testing. Therefore she is developing hives and also worsening wheezing. She has been using her rescue inhaler. Her x-ray she had back in May 2019 appear to be unremarkable. If the patient's symptoms persist even after starting allergy shots or biologic therapy will consider CT scan of the chest and also consider bronchoscopy to further address the issue. She continues on the singular in does have other allergy medicine. We did review her blood work demonstrating negative ALEJANDRA and also negative studies for Sjogren's. She did have a RAST panel that was only positive for dogs. She also had a proper allergy testing demonstrating allergy to other animals as well. She is not exposed at this time. In the meantime her respiratory symptoms are stable so will hold off on biologic therapy. At this point her symptoms are getting worse and she is not responding to the current therapy, therefore, will start Xolair at this time. She does have an elevated IgE level and also has positive allergy testing based on the RAST. She did start the Xolair and has received 2 injections already. The therapy has been helpful. Her inhalers have been changed since she has not been able to get the Bevespi and she has continue just on the Flovent. Explained to her that she should be on the long-acting bronchodilators therefore I will start her on trelegy. In the meantime she is to continue the Xolair shots. 09/19/2020 the patient is here for pulmonary follow-up visit. Overall she is doing better. She continues on the Xolair injections. She is tolerating them well. At this point we will provide her with teaching in a prescription for an EpiPen. This is in case she has an allergic reaction to the medication. In the meantime the patient has been and her respiratory therapy. She has been adherent to the therapy. She does have intermittent cough [id number] severity. Denies any significant phlegm. Has not had any recent asthma exacerbations. Her nasal congestion also has improved to some degree. She still has a mild postnasal drip resulting in upper airway cough. Otherwise the patient is without any other complaints. 03/13/2021 the patient is here for pulmonary follow-up visit. She continues to struggle with her asthma. Has had increasing wheezing and shortness of breath and chest tightness. Moderate in severity. She has required additional prednisone. She continues on the Xolair. Does not appear to have good control of her asthma on the Xolair at this time. Therefore, will go ahead and request blood work and also start the process to switch over to Dupixent. In the meantime the patient is maximize with respiratory therapy initially on Trelegy, but then it was not covered. Therefore Breo was requested. She continues on Incruse. She was referred to Allergy, but it has taken a longer time for her to get an appointment. Therefore we will go ahead and switch her to Dupixent from the Xolair at this time. She will also need additional prednisone. 02/07/2023 the patient is here for a pulmonary follow-up visit. Overall the patient has been doing very well. She continues with Dupixent every 2 weeks. Her asthma has been much better controlled. She has not required any prednisone the quality of life is a lot better. She is very thankful for the Dupixent in hopeful to continue the therapy at this time. However, she started developing vitiligo and appears to be getting worse. She is wondering if it can be releated to the Dupixent. No adverse effects of vitiligo on the package insert, however, I did review a case report of a person who developed worsening vitiligo from the dupixent. Therefore, I did give the patient information about Tezspire. If she develops worsening vitiligo she will go to change the dupixent to Tezspire. 03/09/2024 the patient is here for a pulmonary follow-up visit. She continues to do very well on the Dupixent. The Dupixent as really normalize for asthma in her allergies. She continues to take injections every 2 weeks. She has concerned about the vitiligo her. Does not appear to be significantly worse when compared to her previous visit about a year ago. Although she is going to monitor closely. Specially the vitiligo happens in the face. Is now well documented that the Dupixent can potentially precipitate the bull's vitiligo they have the tendency of developing it. Therefore, they look at her blood work. 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 Therefore, would not be unreasonable to consider switching over to Fasenra or Tezspire in the future. Depending how she responds to the Dupixent and make sure that the vitiligo this worsened. Indeed on the biologic therapy her asthma has been significantly well controlled she will continue for now. 04/17/2024 the patient is here for a pulmonary visit. She recently was starting to get life insurance and she could not get the right premium because of the question COPD. We did do a spirometry in the office. Her lung mechanics are normal. The patient has a history of asthma but no evidence of any COPD at this time. The patient is not at risk of developing COPD. I did give her a letter stating that fact. She is continues on Dupixent. Her vitiligo is not getting any worse so will continue for now. She has also using the Symbicort with good effect. From a respiratory status the patient is doing well. She is also dealing with other musculoskeletal issues which she is currently being evaluated by primary care doctor. Otherwise patient is without any other concerns or complaints. Will follow-up in the next year. If patient has any issues prior to that she will call for an earlier assessment. 09/10/2024 the patient is here for a pulmonary follow-up visit. Overall she continues to do well. She is monitoring closely the vitiligo. Likely worsened by the use the Dupixent. She continues to Dupixent 300 mg every 2 weeks. We did have blood work. Seems like her eosinophils are better. We are still waiting for the IgE level. She is reluctant to switching her Dupixent since she already tried and failed Xolair. In addition to that the patient does not want to try test prior specially with the risk of the eczema. Will go ahead and continue with the Dupixent for now very cautiously. Will go ahead and decrease her dose to 100 mg to minimize any potential adverse effects. Specially since she is doing well. If she develops any worsening vitiligo she would have to stop it. She will continue with respiratory medications as prescribed. The patient follow-up in 6 months. [facility] Medical History Vitiligo Left foot pain Physical exam SALOMON (generalized anxiety disorder) Mild recurrent major depression Migraines GERD (gastroesophageal reflux disease) Asthma Cough Chronic allergic rhinitis Moderate persistent asthma Mixed hyperlipidemia Depression with anxiety Surgical History History of colonoscopy (~10/2013) History of removal of cyst Family History Father CAD (coronary artery disease) Mother Chronic mental illness Stroke Paternal Grandmother Cancer Paternal Aunt Liver cancer Sister Multiple sclerosis Brother ALS (amyotrophic lateral sclerosis) Sister Schizophrenia Family/Other FH: mental illness Social History Household Members: None Housing: Apartment Alcohol intake: never Patient Tobacco Use Status: Never used Tobacco e-Cigarette/Vaping Use: Never Used Second Hand Smoke Exposure: No service: No Current occupational status: unemployed Sexual orientation: Straight/Heterosexual Gender identity: Female Cognitive needs: No Hearing needs: No Vision needs: Yes Female Reproductive History Menstrual Age of Menarche: 11 Review of Systems Const Denies fever(s) Eyes Reports no additional complaints, Denies change in vision and Denies other visual disturbances ENT Denies change in voice, Denies nasal discharge and Denies sinus pain Card Reports no additional complaints, Denies chest pain, Denies chest pain with activity, Denies dyspnea and Denies dyspnea on exertion Resp Reports as per HPI, Reports no additional complaints, Reports cough, Denies pain on inspiration, Denies pain with cough, Denies dyspnea, Denies dyspnea on exertion and Denies wheezing GI Reports as per HPI, Reports no additional complaints, Denies abdominal pain, Denies change in bowel habits, Denies change in stool character, Denies early satiety, Denies dyspepsia, Denies heartburn, Denies nausea and Denies vomiting Reports as per HPI, Denies hematuria and Denies dysuria Musc Denies atrophy, Denies deformity and Denies limited range of motion Skin/Breast Reports change in pigmentation, Reports changing lesions, Denies pruritus and Denies erythema Aller/Immun Denies wheezing Physical Exam Vital Signs: Last Vital Signs Pulse 73 09/10/24 13:11 BP 104/67 09/10/24 13:11 Pulse Ox 96 09/10/24 13:11 Oxygen Delivery Method Room Air 09/10/24 13:11 BMI result Body Mass Index 29.0 Const General: cooperative, healthy appearing and comfortable Neck Neck: Yes normal visual inspection, Yes full ROM and Yes no lymphadenopathy Chest Chest palpation & inspection: normal inspection of the chest Breast/axilla palpation: normal palpation of the breasts, normal palpation of the axillae and no axillary lymphadenopathy Resp Effort & Inspection: normal respiratory effort Auscultation: clear to auscultation bilaterally and no wheezes Cardio Palpation: normal PMI Rate: regular rate Rhythm: regular rhythm Heart sounds: no murmurs and no rubs Peripheral pulses: Peripheral pulses 2+ throughout GI Palpation (GI): Soft to palpation Skin Other: Lesions: lesion noted (vitiligo upper extremities) Assessment & Plan Assessment & Plan (1) Moderate persistent asthma: Comment: no evidence of COPD Code(s): J45.40 - Moderate persistent asthma, uncomplicated Category: Medical Qualifiers: Asthma complication type: uncomplicated Qualified Code(s): J45.40 - Moderate persistent asthma, uncomplicated (2) Cough: Code(s): R05 - Cough Category: Medical Qualifiers: Cough type: chronic Qualified Code(s): R05.3 - Chronic cough (3) Chronic allergic rhinitis: Code(s): J30.9 - Allergic rhinitis, unspecified Category: Medical (4) GERD (gastroesophageal reflux disease): Code(s): K21.9 - Gastro-esophageal reflux disease without esophagitis Category: Medical Qualifiers: Esophagitis bleeding: without hemorrhage Esophagitis presence: with esophagitis Qualified Code(s): K21.00 - Gastro-esophageal reflux disease with esophagitis, without bleeding (5) Vitiligo: Comment: ?progression due to Dupixent Code(s): L80 - Vitiligo Category: Medical Plan continue Symbicort JAY as needed continue Dupixent injections every 2 weeks. We will decrease to 200mg every 2 weeks. Consider changing to Fasenra or Tezspire if worsening rash/hypigmentation. reflux diet laboratories follow-up 6-8 months Coding Level of Care Code Est Pt Level 4 (50199) Diagnoses Moderate persistent asthma without complication J45.40 Asthma complication type: uncomplicated Chronic cough R05.3 Cough type: chronic Chronic allergic rhinitis J30.9 Gastroesophageal reflux disease with esophagitis without hemorrhage K21.00 Esophagitis bleeding: without hemorrhage Esophagitis presence: with esophagitis Vitiligo L80 Time Spent (min) 16
== END 2024-09-10 13:38 | disposition home or self-care (01) ==
PROVIDERS: PCP Internal Medicine; Visit Provider Hospitalist
DX: J45.40 Moderate persistent asthma, uncomplicated (principal); R05.3 Chronic cough; J30.9 Allergic rhinitis, unspecified; K21.00 Gastro-esophageal reflux disease with esophagitis, without bleeding; L80 Vitiligo
CPT/HCPCS: 99214

== ENCOUNTER → 2024-09-10 12:59 | Outpatient (BNVA) | payer OTHER, SELFPAY | PROVIDERS: PCP Internal Medicine; Visit Provider Hospitalist | DX: J45.40 Moderate persistent asthma, uncomplicated (principal); R05.3 Chronic cough; J30.9 Allergic rhinitis, unspecified; K21.00 Gastro-esophageal reflux disease with esophagitis, without bleeding; L80 Vitiligo; Z79.899 Other long term (current) drug therapy | CPT/HCPCS: 99212 ==

== ENCOUNTER 2024-11-07 07:04 | Day surgery (SDC) | payer OTHER, SELFPAY ==
[2024-11-05 14:20] VITALS: BMI 28.9
--- NOTE | 2024-11-06 08:51 | HO.ANESPROP2 ---
Documented by User: Nohemi Bernardo NP 11/06/24 08:53 HPI - Anesthesia Eval Consult details Narrative: 59yo F for Colonoscopy PMFSH Active Problems Active Problems: All Active Problems Hypovitaminosis D (Acute) Right shoulder pain (Acute) Urge urinary incontinence (Acute) Bertolotti's syndrome (Acute) Muscle spasm (Acute) Lumbosacral spondylosis (Acute) Sacroiliac joint pain (Acute) Lumbar degenerative disc disease (Acute) Lumbar radiculopathy (Acute) Polyarthralgia (Acute) Lesion of skin of breast (Acute) Vitiligo (Acute) Urine incontinence (Acute) Well woman exam (Acute) Left foot pain (Acute) Physical exam (Acute) SALOMON (generalized anxiety disorder) (Acute) Mild recurrent major depression (Acute) Migraines (Acute) GERD (gastroesophageal reflux disease) (Acute) Chronic allergic rhinitis (Acute) Moderate persistent asthma (Acute) Mixed hyperlipidemia (Acute) Past Medical History Medical History Vitiligo Left foot pain Physical exam SALOMON (generalized anxiety disorder) Mild recurrent major depression Migraines GERD (gastroesophageal reflux disease) Asthma Cough Chronic allergic rhinitis Moderate persistent asthma Mixed hyperlipidemia Depression with anxiety Family History Family History Father CAD (coronary artery disease) Mother Chronic mental illness Stroke Paternal Grandmother Cancer Paternal Aunt Liver cancer Sister Multiple sclerosis Brother ALS (amyotrophic lateral sclerosis) Sister Schizophrenia Family/Other FH: mental illness Surgical History Surgical History History of colonoscopy (~10/2013) History of removal of cyst Social History Social History Household Members: None Housing: Apartment Alcohol intake: never Patient Tobacco Use Status: Never used Tobacco e-Cigarette/Vaping Use: Never Used Second Hand Smoke Exposure: No Use of substances other than those prescribed or required for medical reasons: No Have you been hit, kicked, punched, or otherwise hurt by someone within the past year? If so, by whom?: No Are you DNR?: No Advance Directives: No Advance Directives Information Provided: Yes Recently lost weight without trying: No service: No Current occupational status: unemployed Sexual orientation: Straight/Heterosexual Gender identity: Female Cognitive needs: No Hearing needs: No Vision needs: Yes Meds Allergies Allergy/AdvReac Type Severity Reaction Status Date / Time dupilumab [From Dupixent Pen] Allergy Intermediate Hives Verified 09/10/24 13:16 hydroxyzine [HYDROXYZINE] Allergy Intermediate THROAT Verified 09/10/24 13:16 TIGHT , dry mouth Penicillins [PENICILLINS] Allergy Intermediate RASH Verified 09/10/24 13:16 pollen extracts [POLLEN] Allergy Intermediate THROAT Verified 09/10/24 13:16 GETS ITCHY tramadol Allergy Intermediate sleepiness Verified 09/10/24 13:16 Home Medications ?Medication ?Instructions ?Recorded ?Confirmed ?Last Taken ?Type aripiprazole 10 mg tablet 10 mg PO DAILY 05/03/22 11/05/24 Unknown History sumatriptan succinate 100 mg tablet mg PO PRN Headache 08/09/23 07/16/24 Unknown History buspirone 15 mg tablet 15 mg PO TID anxiety 11/10/23 11/05/24 Unknown History budesonide-formoterol HFA 160 2 puff inhalation BID 03/09/24 11/05/24 Unknown History mcg-4.5 mcg/actuation aerosol inhaler Exam Height,Weight and Vital Signs: Height 5 ft 8 in Weight 86.183 kg Assessment and Plan Assessment Anesthesia Assessment: Chart Reviewed Documented by User: Candy Dahl MD 11/07/24 08:30 ON LICENSE OF [facility] Past Medical History Medical History Vitiligo Left foot pain Physical exam SALOMON (generalized anxiety disorder) Mild recurrent major depression Migraines GERD (gastroesophageal reflux disease) Asthma Cough Chronic allergic rhinitis Moderate persistent asthma Mixed hyperlipidemia Depression with anxiety Family History Family History Father CAD (coronary artery disease) Mother Chronic mental illness Stroke Paternal Grandmother Cancer Paternal Aunt Liver cancer Sister Multiple sclerosis Brother ALS (amyotrophic lateral sclerosis) Sister Schizophrenia Family/Other FH: mental illness Family history of problems with anesthesia: No Surgical History Surgical History History of colonoscopy (~10/2013) History of removal of cyst History of Problems with Anesthesia: No Social History Social History Household Members: None Housing: Apartment Alcohol intake: never Patient Tobacco Use Status: Never used Tobacco e-Cigarette/Vaping Use: Never Used Second Hand Smoke Exposure: No Use of substances other than those prescribed or required for medical reasons: No Have you been hit, kicked, punched, or otherwise hurt by someone within the past year? If so, by whom?: No Are you DNR?: No Advance Directives: No Advance Directives Information Provided: Yes Recently lost weight without trying: No service: No Current occupational status: unemployed Sexual orientation: Straight/Heterosexual Gender identity: Female Cognitive needs: No Hearing needs: No Vision needs: Yes Meds Allergies Allergy/AdvReac Type Severity Reaction Status Date / Time dupilumab [From [employer] Pen] Allergy Intermediate Hives Verified 09/10/24 13:16 hydroxyzine [HYDROXYZINE] Allergy Intermediate THROAT Verified 09/10/24 13:16 TIGHT , dry mouth Penicillins [PENICILLINS] Allergy Intermediate RASH Verified 09/10/24 13:16 pollen extracts [POLLEN] Allergy Intermediate THROAT Verified 09/10/24 13:16 GETS ITCHY tramadol Allergy Intermediate sleepiness Verified 09/10/24 13:16 Home Medications ?Medication ?Instructions ?Recorded ?Confirmed ?Last Taken ?Type aripiprazole 10 mg tablet 10 mg PO DAILY 05/03/22 11/05/24 Unknown History sumatriptan succinate 100 mg tablet mg PO PRN Headache 08/09/23 07/16/24 Unknown History buspirone 15 mg tablet 15 mg PO TID anxiety 11/10/23 11/05/24 Unknown History budesonide-formoterol HFA 160 2 puff inhalation BID 03/09/24 11/05/24 Unknown History mcg-4.5 mcg/actuation aerosol inhaler Exam Airway Mallampati Class: II TM Dist: >3cm Neck ROM: Full Heart: rrr Lungs: cta Assessment and Plan Assessment Anesthesia Assessment: Anesthesia Plan Discussed Final Anesthetic Review Family History of Problems with Anesthesia: No History of Problems with Anesthesia: No NPO: Yes ASA Class: III Final Preanesthetic Review: No Changes in Pt Med Stat, Meds/Allgs Chart Reviewed and Consent Obtained/Reviewed Patient Risk: Low Procedure Risk: Low Anesthetic Plan Anesthetic Plan: MAC: Disposition: Standard PACU
--- NOTE | 2024-11-07 07:15 | MHC.SHP ---
Pre-Procedural Eval Section A - 24 Hr Update-Section A only Date of Service: 11/07/24 Section B - Complete if H&P > 30 days Chief Complaint: Encounter for screening for malignant neoplasm of Details of Present Illness: aunt with CRC Relevant Family History (Specify if Yes): Yes Relevant Social History: None Present Medications: see Short Stay Collaborative assessment Medical History: Significant History (Vitiligo Left foot pain Physical exam SALOMON (generalized anxiety disorder) Mild recurrent major depression Migraines GERD (gastroesophageal reflux disease) Asthma Cough Chronic allergic rhinitis Moderate persistent asthma Mixed hyperlipidemia Depression with anxiety) History of Previous Operations: Relevant previous surgery/procedure and date(s) ( History of colonoscopy (~10/2013) History of removal of cyst) Allergies: Allergies Allergy/AdvReac Type Severity Reaction Status Date / Time dupilumab [From Dupixent Pen] Allergy Intermediate Hives Verified 09/10/24 13:16 hydroxyzine [HYDROXYZINE] Allergy Intermediate THROAT Verified 09/10/24 13:16 TIGHT , dry mouth Penicillins [PENICILLINS] Allergy Intermediate RASH Verified 09/10/24 13:16 pollen extracts [POLLEN] Allergy Intermediate THROAT Verified 09/10/24 13:16 GETS ITCHY tramadol Allergy Intermediate sleepiness Verified 09/10/24 13:16 Review of Systems Sugical H&P ROS: Negative: Constitution, Cardiovascular, Respiratory, Neurological, Psychiatric, Hem-Onc, Allergic/Immunologic, Gastrointestinal, Genitourinary, Musculoskeletal, Integumentary, Endocrine and Eyes/Ears/Nose/Throat Exam Surgical H&P Exam: Normal: HEENT, Normal: Heart, Normal: Lungs, Normal: Extremities, Normal: Abdomen, Normal: Skin and Normal: Neurological Plan Diagnosis/Plan: Unchanged I have reviewed the history and physical and performed a pertinent physical examination on my patient. No changes have occurred unless specified. Time Spent With Patient Time: Total time managing care of this patient today ____ minutes.
[2024-11-07 07:18] VITALS: BP 118/78; PULSE 89; RESP 16; TEMP 36.7; O2SAT 96; BMI 28.1
[2024-11-07] MEDS: Lactated Ringers 1,000 ML 100 ML IVCONT (07:23)
--- NOTE | 2024-11-07 08:56 | P.OPN-COLO_ITS ---
Colonoscopy Operative Note Operative Note Date of Service: 11/07/24 Narrative: Operative Information Procedure Description: Colonoscopy Indication: screening Anesthesia: MAC COLONOSCOPY Instrument: Olympus variable stiffness pediatric scope 190L Colonoscopy Monitoring: Vital signs and clinical assessment, continuous EKG monitoring, Pulse oximetry, Carbon Dioxide monitoring and blood pressure monitoring were done throughout the procedure. Colon withdrawal time was 10 minutes. Procedure: The patient was placed in the left lateral decubitis position and pre-procedure medications were administered. After a digital rectal examination of the ano-rectum, the video colonoscope was inserted into the rectum and advanced through the colon to the cecum/TI. The colonoscope was slowly withdrawn in a retrograde panoramic fashion and the colon mucosa was carefully examined including a retroflexed view of the rectum. Findings and interventions are described below. Procedure Difficulty: easy Findings: Terminal Ileum-normal Cecum: 6-8 mm sessile polyp removed with cold snare Right sided retroflexion- normal Ascending Colon: normal Transverse Colon -normal Descending Colon:normal Sigmoid Colon: mild to moderate diverticulosis Rectum: Retroflexion with small internal hemorrhoids seen, grade I Anorectum - normal Intervention: cold snare Colon preparation: [place] Bowel Preparation Scale Right colon; 2 Transverse colon: 2 Left colon; 2 (0 = Unprepared colon segment with mucosa not seen due to solid stool that cannot be cleared. 1 = Portion of mucosa of the colon segment seen, but other areas of the colon segment not well seen due to staining, residual stool and/or opaque liquid. 2 = Minor amount of residual staining, small fragments of stool and/or opaque liquid, but mucosa of colon segment seen well. 3 = Entire mucosa of colon segment seen well with no residual staining, small fragments of stool or opaque liquid) Impression and Post Procedure Diagnosis: diverticulosis colon polyp internal hemorrhoids Plan: High fiber diet leaflet Avoid straining at stool, epsom salts and sitz bath, anusol supps or cream Repeat Colonoscopy in 5-6 years due to adenomatous appearing polyp or earlier if clinically indicated Above findings were reviewed with the patient and relevant handouts were provided if indicated.
[2024-11-07 08:59] VITALS: BP 102/57; PULSE 71; RESP 16; TEMP 36.5; O2SAT 93
[2024-11-07 09:13] VITALS: BP 102/57; PULSE 73; RESP 18; O2SAT 93
[2024-11-07 09:23] VITALS: BP 102/57; PULSE 68; RESP 20; TEMP 36.2; O2SAT 96
== END 2024-11-07 09:48 | disposition home or self-care (01) ==
PROVIDERS: PCP Internal Medicine; Visit Provider Internal Medicine Gastroenterology
PROC: 0DJD8ZZ Inspection of Lower Intestinal Tract, Via Natural or Artificial Opening Endoscopic (ICD-10-PCS; CPT 45378; principal; 2024-11-07 08:30)
DX: Z12.11 Encounter for screening for malignant neoplasm of colon (principal); D12.0 Benign neoplasm of cecum; K57.30 Diverticulosis of large intestine without perforation or abscess without bleeding; K64.0 First degree hemorrhoids; K21.9 Gastro-esophageal reflux disease without esophagitis; E78.2 Mixed hyperlipidemia; J45.40 Moderate persistent asthma, uncomplicated; L80 Vitiligo; G43.909 Migraine, unspecified, not intractable, without status migrainosus; F32.A Depression, unspecified; F41.1 Generalized anxiety disorder; Z79.899 Other long term (current) drug therapy; Z88.0 Allergy status to penicillin; Z88.5 Allergy status to narcotic agent; Z88.8 Allergy status to other drugs, medicaments and biological substances; Z56.0 Unemployment, unspecified
CPT/HCPCS: 45385; 88305; J2003; J2704

== ENCOUNTER → 2024-11-07 07:04 | Outpatient (BNV) | payer OTHER, SELFPAY | PROVIDERS: PCP Internal Medicine; Visit Provider Internal Medicine Gastroenterology | DX: Z12.11 Encounter for screening for malignant neoplasm of colon (principal); D12.0 Benign neoplasm of cecum; K57.30 Diverticulosis of large intestine without perforation or abscess without bleeding; K64.0 First degree hemorrhoids | CPT/HCPCS: 45385 ==

== ENCOUNTER → 2024-11-12 11:49 | Outpatient (BNVA) | payer OTHER, SELFPAY | PROVIDERS: PCP Internal Medicine; Visit Provider Internal Medicine ==

== ENCOUNTER 2024-11-21 11:45 | Outpatient (AMB) | payer OTHER, SELFPAY ==
--- NOTE | 2024-11-21 11:46 | MHC.OFFVIS ---
Vital Signs 11/21/24 11:47 Height 5 ft 8 in Weight 186 lb 15.232 oz BMI 28.4 BP 94/68 Blood Pressure Location Rt brachial Position Sitting Pulse 76 Pulse Source Pulse Oximeter Pulse Oximetry (%) 95 Oxygen Delivery Method Room Air Intake Visit Reasons: s/p colon Intake Note: ESTABLISHED PATIENT for s/p colo. Chief Complaint; TA x1 reported per pathology. Intermittent constipation + concern for hemorrhoid per pt. Pt reports that they experience intermittent burning sensation in the rectal area. Pt denies any signs of bleeding or additional concerns. Research Center Director Required: Yes Research Center Director Services: Research Center Director Present Research Center Director Name: Ha ([id number]) Accompanied by: Self / Same As Patient Allergies hydroxyzine [HYDROXYZINE] Allergy (Intermediate, Verified 11/21/24 11:48) THROAT TIGHT , dry mouth Penicillins [PENICILLINS] Allergy (Intermediate, Verified 11/21/24 11:48) RASH pollen extracts [POLLEN] Allergy (Intermediate, Verified 11/21/24 11:48) THROAT GETS ITCHY tramadol Allergy (Intermediate, Verified 11/21/24 11:48) sleepiness HPI HPI s/p colon: Details: LAST VISIT Screen for colon cancer Plan Patient denies any GI, cardiac or respiratory symptoms.? Denies any issues with anesthesia in the past.? Denies any history of sleep apnea.? No history infectious diseases in the past or present.? Not on any anticoagulation therapy.? No family or personal history of colon cancer or polyps.? Last colonoscopy in 2013, normal colonoscopy. Patient denies melena, hematochezia, unintentional weight loss or ribbon like stools.? Discussed at length the pre-procedure,? prep, diet & medications as well as what to expect prior, during and after the procedure.?? Stressed the importance of good bowel prep.? Recommended the use of Vaseline or Calmoseptine OTC & baby wipes with bowel movements to promote comfort.? ?Patient verbalizes understanding and agrees to plan of care.? She was given the opportunity to ask questions and all questions answered.? We will see her after the procedure.? Medications New bisacodyl (Dulcolax (bisacodyl)) take 4 tabs at noon the day before your colonoscopy 20 mg (4 x 5 mg) PO ONCE 1 day 4 tabs 0RF Z12.11 polyethylene glycol 3350 (Miralax) As directed by gastroenterology department at [facility] 238 grams PO ONCE 238 grams 0RF Z12.11 COLONOSCOPY Findings: Terminal Ileum-normal Cecum: 6-8 mm sessile polyp removed with cold snare Right sided retroflexion- normal Ascending Colon: normal Transverse Colon -normal Descending Colon:normal Sigmoid Colon: mild to moderate diverticulosis Rectum: Retroflexion with small internal hemorrhoids seen, grade I Anorectum - normal Intervention: cold snare Colon preparation: [place] Bowel Preparation Scale Right colon; 2 Transverse colon: 2 Left colon; 2 (0 = Unprepared colon segment with mucosa not seen due to solid stool that cannot be cleared. 1 = Portion of mucosa of the colon segment seen, but other areas of the colon segment not well seen due to staining, residual stool and/or opaque liquid. 2 = Minor amount of residual staining, small fragments of stool and/or opaque liquid, but mucosa of colon segment seen well. 3 = Entire mucosa of colon segment seen well with no residual staining, small fragments of stool or opaque liquid) Impression and Post Procedure Diagnosis: diverticulosis colon polyp internal hemorrhoids Plan: High fiber diet leaflet Avoid straining at stool, epsom salts and sitz bath, anusol supps or cream Repeat Colonoscopy in 5-6 years due to adenomatous appearing polyp or earlier if clinically indicated PATHOLOGY RESULTS Diagnosis Colon, cecal polyp: Tubular adenoma; negative for high-grade dysplasia and carcinoma TODAY'S VISIT Patient is here today for follow-up and to discuss colonoscopy results. Patient denies any ill effects from the prep, anesthesia or procedure itself. Patient was found to have 1 polyp, tubular adenoma without high-grade dysplasia or carcinoma. Results of colonoscopy discussed with patient. Patient was found to have internal hemorrhoids and diverticulosis. Patient does admit that occasionally she will be constipated and feels like she has to push. Occasional burning sensation without pain. Patient denies any melena, hematochezia. Patient denies any dyspepsia, dysphagia or odynophagia. Patient denies any other GI concerning symptoms today. [facility] Medical History (Updated 11/25/24 @ 19:[address] [facility] [place]) Tubular adenoma of colon Vitiligo Left foot pain Physical exam ASLOMON (generalized anxiety disorder) Mild recurrent major depression Migraines GERD (gastroesophageal reflux disease) Asthma Cough Chronic allergic rhinitis Moderate persistent asthma Mixed hyperlipidemia Depression with anxiety Surgical History History of colonoscopy (~10/2013) History of removal of cyst Family History Father CAD (coronary artery disease) Mother Chronic mental illness Stroke Paternal Grandmother Cancer Paternal Aunt Liver cancer Sister Multiple sclerosis Brother ALS (amyotrophic lateral sclerosis) Sister Schizophrenia Family/Other FH: mental illness Social History Household Members: None Housing: Apartment Alcohol intake: never Patient Tobacco Use Status: Never used Tobacco e-Cigarette/Vaping Use: Never Used Second Hand Smoke Exposure: No service: No Current occupational status: unemployed Sexual orientation: Straight/Heterosexual Gender identity: Female Cognitive needs: No Hearing needs: No Vision needs: Yes Female Reproductive History Menstrual Age of Menarche: 11 Review of Systems Const Denies weight gain and Denies weight loss ENT Reports no additional complaints, Denies dysphagia and Denies odynophagia Card Reports no additional complaints Resp Reports no additional complaints GI Denies abdominal pain, Denies belching, Denies melena, Denies bloating, Denies change in bowel habits, Reports constipation, Denies dysphagia, Denies excessive flatus, Denies dyspepsia, Denies heartburn, Denies diarrhea, Denies loose stools, Denies nausea, Denies odynophagia and Denies vomiting Reports no additional complaints Musc Reports no additional complaints Neuro Reports no additional complaints Psych Reports no additional complaints Endo Reports no additional complaints Physical Exam Vital Signs: Last Vital Signs Pulse 76 11/21/24 11:47 BP 94/68 11/21/24 11:47 Pulse Ox 95 11/21/24 11:47 Oxygen Delivery Method Room Air 11/21/24 11:47 BMI result Body Mass Index 28.4 Const General: healthy appearing and no acute distress Nutritional Appearance: obese Orientation/consciousness: patient oriented x3 Resp Effort & Inspection: normal respiratory effort, able to speak in complete sentences, no tracheal deviation and symmetric chest movement Auscultation: clear to auscultation bilaterally Cardio Rate: regular rate GI Inspection: Yes normal to inspection, No distended and Yes obesity Palpation (GI): Soft to palpation, not firm, nontender and No hepatosplenomegaly present Auscultation: normal bowel sounds General: Yes no CVA tenderness Back/Spine/Pelvis Back: no CVA tenderness Skin General skin exam: elasticity normal, turgor normal and dry skin Neuro General: patient oriented x3 Psych Appearance: grossly normal Mental Status: mental status grossly normal Assessment & Plan Assessment & Plan (1) Tubular adenoma of colon: Code(s): D12.6 - Benign neoplasm of colon, unspecified Category: Medical (2) Status post colonoscopy: Code(s): Z98.890 - Other specified postprocedural states (3) Diverticulosis: Code(s): K57.90 - Diverticulosis of intestine, part unspecified, without perforation or abscess without bleeding (4) Constipation: Code(s): K59.00 - Constipation, unspecified Qualifiers: Constipation type: slow transit constipation Qualified Code(s): K59.01 - Slow transit constipation Plan Colonoscopy in 5 years due to 1 tubular adenoma found, sooner if clinically necessary. Patient reports constipation and occasional burning in her rectum without pain. Internal hemorrhoids found. Patient will start taking Senokot 2 tablets daily and she can use Proctosol as needed. Patient was instructed to do Sitz baths with Epsom salts if needed. Increase fluid intake and activity to promote better bowel motility. Patient will return in 6 months, sooner on as needed basis. Patient is agreeable to current plan of care and verbalizes understanding of instructions. She was given the opportunity to ask questions and all questions answered. Thank you for allowing me to participate in her care Medications: New sennosides (Natural Senna Laxative) 17.2 mg (2 x 8.6 mg) PO BEDTIME 60 tabs 3RF constipation K59.00 - Constipation, unspecified hydrocortisone 2.5% (Proctosol HC) 1 appl [place] BID-QID PRN 30 grams 2RF hemorrhoids K64.9 - Unspecified hemorrhoids Coding Level of Care Code Est Pt Level 3 (40304) Diagnoses Tubular adenoma of colon D12.6 Status post colonoscopy Z98.890 Diverticulosis K57.90 Slow transit constipation K59.01 Constipation type: slow transit constipation Time Spent (min) 30 Comment 20 minutes spent with patient and additional 10 minutes spent reviewing her records
[2024-11-21 11:47] VITALS: BP 94/68; PULSE 76; O2SAT 95; BMI 28.4
== END 2024-11-21 12:40 | disposition home or self-care (01) ==
PROVIDERS: PCP Internal Medicine; Visit Provider Nurse Practitioner Family
DX: D12.6 Benign neoplasm of colon, unspecified (principal); Z98.890 Other specified postprocedural states; K57.90 Diverticulosis of intestine, part unspecified, without perforation or abscess without bleeding; K59.01 Slow transit constipation
CPT/HCPCS: 99213

== ENCOUNTER → 2024-11-21 11:45 | Outpatient (BNVA) | payer OTHER, SELFPAY | PROVIDERS: PCP Internal Medicine; Visit Provider Nurse Practitioner Family | DX: D12.6 Benign neoplasm of colon, unspecified (principal); K57.90 Diverticulosis of intestine, part unspecified, without perforation or abscess without bleeding; K59.01 Slow transit constipation; Z98.890 Other specified postprocedural states | CPT/HCPCS: 99212 ==

== ENCOUNTER 2024-12-14 13:18 | Outpatient (AMB) | payer OTHER, SELFPAY ==
[2024-12-14 13:22] VITALS: BP 132/82; PULSE 74; TEMP 36.3; O2SAT 97; BMI 28.7
--- NOTE | 2024-12-14 13:22 | MHC.PC.OV ---
Vital Signs 12/14/24 13:22 Height 5 ft 8 in Weight 188 lb 8 oz BMI 28.7 BP 132/82 Blood Pressure Location Lt brachial Position Sitting Pulse 74 Pulse Source Pulse Oximeter Temp 97.3 F Temp Source Temporal Artery Scan Pulse Oximetry (%) 97 Oxygen Delivery Method Room Air Intake Visit Reasons: whistling sound on L ear /no pain [employer] C[employer] Required: Yes [employer] Cutter Language: Retail Custodial Associate Name: Trice Burleson PA-C Information Interpreted: non-clinical & clinical Allergies hydroxyzine [HYDROXYZINE] Allergy (Intermediate, Verified 12/14/24 13:39) THROAT TIGHT , dry mouth Penicillins [PENICILLINS] Allergy (Intermediate, Verified 12/14/24 13:39) RASH pollen extracts [POLLEN] Allergy (Intermediate, Verified 12/14/24 13:39) THROAT GETS ITCHY tramadol Allergy (Intermediate, Verified 12/14/24 13:39) sleepiness Medication List - Last Reconciled 12/14/24 by Trice Burleson PA-C aripiprazole 10 mg PO DAILY bisacodyl (Dulcolax (bisacodyl)) 20 mg (4 x 5 mg) PO ONCE 1 day budesonide-formoterol 160-4.5 mcg/actuation 2 puffs inhalation BID buspirone 15 mg PO TID cetirizine 10 mg PO DAILY 90 days cholecalciferol (vitamin D3) 1,250 mcg PO QWEEK 90 days diclofenac potassium 50 mg PO BID PRN dupilumab (Dupixent) 200 mg (1.14 mL) subcut Q2W 4 weeks escitalopram oxalate mg PO DAILY hydrocortisone 2.5% (Proctosol HC) 1 appl GA BID-QID PRN incontinence pad, liner, disp As directed latex gloves (Latex Gloves, Large) As directed polyethylene glycol 3350 (Miralax) 238 grams PO ONCE rosuvastatin 10 mg PO DAILY 90 days sennosides (Natural Senna Laxative) 17.2 mg (2 x 8.6 mg) PO BEDTIME sumatriptan succinate mg PO PRN sumatriptan succinate mg PO tacrolimus 0.1% 1 appl topical BID underpads (Bed Underpads) As directed Tobacco use date assessed: 12/14/24 Dental Screening Dental Screen Date: 12/14/24 Did you have a dental visit in the last 12 months?: Yes Did you have a dental problem in the last 6 months where you did not have access to dental care?: No Was dental information given to patient?: Patient has dentist [facility] Medical History (Updated 12/14/24 @ 14:18 by Trice Burleson PA-C) Hyperlipidemia LDL goal <70 New onset type 2 diabetes mellitus History of mammogram (~06/08/24) Tinnitus Tubular adenoma of colon Vitiligo Left foot pain Physical exam SALOMON (generalized anxiety disorder) Mild recurrent major depression Migraines GERD (gastroesophageal reflux disease) Asthma Cough Chronic allergic rhinitis Moderate persistent asthma Mixed hyperlipidemia Depression with anxiety Surgical History (Updated 12/14/24 @ 13:54 by Trice Burleson PA-C) History of colonoscopy (~11/07/24) History of removal of cyst Family History Father CAD (coronary artery disease) Mother Chronic mental illness Stroke Paternal Grandmother Cancer Paternal Aunt Liver cancer Sister Multiple sclerosis Brother ALS (amyotrophic lateral sclerosis) Sister Schizophrenia Family/Other FH: mental illness Social History Household Members: None Housing: Apartment Alcohol intake: never Patient Tobacco Use Status: Never used Tobacco e-Cigarette/Vaping Use: Never Used Second Hand Smoke Exposure: No service: No Current occupational status: unemployed Sexual orientation: Straight/Heterosexual Gender identity: Female Cognitive needs: No Hearing needs: No Vision needs: Yes Female Reproductive History Menstrual Age of Menarche: 11 Questionnaire PHQ-9 Over the last 2 weeks, how often have you been bothered by any of the following problems? 1. Little interest or pleasure in doing things: more than half the days 2. Feeling down, depressed, or hopeless: several days 3. Trouble falling or staying asleep, or sleeping too much: several days 4. Feeling tired or having little energy: several days 5. Poor appetite or overeating: several days 6. Feeling bad about yourself - or that you are a failure or have let yourself or your family down: not at all 7. Trouble concentrating on things, such as reading the newspaper or watching television: several days 8. Moving or speaking so slowly that other people could have noticed. Or the opposite - being so fidgety or restless that you have been moving around a lot more than usual: several days 9. Thoughts that you would be better off or of hurting yourself in some way: not at all Total score: 8 Depression Screening Interpretation: Positive Depression Screening Done: Yes 29427 - PHQ-9 Billing: Yes Source: Developed by Drs. Kayden Eldridge, Chelsy Julian, Cholo Garcia and colleagues, with an educational jeannie from [employer]. Thrive Questionnaire Date Thrive assessed: 12/14/24 I am a: Patient What is your living situation today?: I have a steady place to live Within the past 12 months, did the food you bought not last and you didn't have the money to get more?: Never true Within the past 12 months, did you worry whether your food would run out before you got money to buy more?: Never true Do you have trouble paying for medicines?: No Do you have trouble getting transportation to medical appointments?: No Do you have trouble paying your heating and electricity bill?: No Do you have trouble taking care of your child, family member or friend?: No Do you have trouble with day-to-day activities such as bathing, preparing meals, shopping, managing finances, etc.?: No Are you currently unemployed and looking for a job?: No Are you interested in more education?: No Please select the resources that you would like help with: None Currently or been in a relationship where the following occur: No concerns reported THRIVE Score: 0 AUDIT C Alcohol Use Questionnaire (AUDIT-C) 1. How often do you have a drink containing alcohol?: Never Total Score: 0 Score Reviewed/Action Taken: Yes (score reviewed) SALOMON-7 AMB Questionnaire SALOMON-7 Date SALOMON - 7 assessed: 12/14/24 Feeling nervous, anxious, or on edge: 1 = Several days Not being able to stop or control worryin = Not at all Worrying too much about different things: 0 = Not at all Trouble relaxin = Several days Being so restless that it is hard to sit still: 0 = Not at all Becoming easily annoyed or irritable: 1 = Several days Feeling afraid as if something awful might happen: 1 = Several days Total SALOMON-7 score (0-4 normal; 5-9 mild; 10-14 moderate; 15-21 severe): 4 Source: Developed by Drs. Kayden Eldridge, Chelsy Julian, Cholo Garcia and colleagues, with an educational jeannie from [employer]. SALOMON-7 Assessment Billing SALOMON-7 Assessment Tool: SALOMON-7 Assessment 51285 Physical exam (Primary Care) Vital Signs: Last Vital Signs Temp 97.3 F 12/14/24 13:22 Pulse 74 12/14/24 13:22 BP 132/82 12/14/24 13:22 Pulse Ox 97 12/14/24 13:22 Oxygen Delivery Method Room Air 12/14/24 13:22 Care Plan Goal for BP management: <130/80 BMI result Body Mass Index 28.7 BMI Assessment/Plan discussion: High BMI High, discussed plan: lifestyle, weight reduction, dietary, physical activity and alcohol moderation Tobacco/Smoking Status: Tobacco use Status Tobacco use date assessed 12/14/24 12/14/24 13:34 Patient Tobacco Use Status Never used Tobacco 12/14/24 13:34 e-Cigarette/Vaping Use Never Used 12/14/24 13:34 PHQ-9: PHQ-9 Score PHQ-9: Total score 8 12/14/24 13:43 Depression Screening Interpretation: Positive Thrive Assessment: Date of Thrive Assessment Date Thrive assessed 12/14/24 12/14/24 13:34 Currently or been in a relationship where the following occur: No concerns reported Results AMB Hemoglobin A1c AMB Hemoglobin A1c 6.5 % Last Edit by RAGHAV Nolen on 12/14/24 14:17 Coding Level of Care Code Est Pt Level 4 (01891) Complex EM visit Add On G2211 Diagnoses Tinnitus H93.19 New onset type 2 diabetes mellitus E11.9 Hyperlipidemia LDL goal <70 E78.5 Migraine without aura and without status migrainosus, not intractable G43.009 Migraine type: without aura Status migrainosus presence: without status migrainosus Intractability: not intractable Additional Codes SALOMON-7 Assessment Billing - SALOMNO-7 Assessment Tool: SALOMON-7 Assessment 20320 ([id number]) PHQ-9 - 29538 - PHQ-9 Billing: Yes ([id number]) Assessment & Plan Assessment & Plan (1) Tinnitus: Code(s): H93.19 - Tinnitus, unspecified ear Category: Medical Plan: Exam no cerumen impaction. No abnormalities. Normal hearing. No mastoid tenderness, erythema or swelling noted. No foreign bodies are noted. Will refer to ENT for further evaluation treatment. Condition is stable will continue to monitor (2) New onset type 2 diabetes mellitus: Code(s): E11.9 - Type 2 diabetes mellitus without complications Category: Medical Plan: Patient reports intermittent episodes of dizziness and increased thirst with increased urination output. I reviewed the patient's labs and it appears that patient normally has a fasting elevated glucose level. I performed an A1c level and A1c level is at 6.5. A1c level goal would be less than 7.0. Patient is a new onset diabetic. Patient instructed to check her glucose levels when she wakes up in the morning. Before meals and 2 hours after meals. She will be started on metformin 500 mg daily. She will return in 1 month with a diarrhea of her blood glucose levels with Dr. Alejandra Cee her primary care provider. Condition is chronic and stable continue to monitor. (3) Hyperlipidemia LDL goal <70: Code(s): E78.5 - Hyperlipidemia, unspecified Category: Medical Plan: Patient currently on lovastatin 10 mg at bedtime. Taking as prescribed. Last LDL was 160 on 09/07/2024. LDL Goal <70. Condition is chronic and stable continue to monitor. (4) Migraines: Code(s): G43.909 - Migraine, unspecified, not intractable, without status migrainosus Category: Medical Qualifiers: Migraine type: without aura Status migrainosus presence: without status migrainosus Intractability: not intractable Qualified Code(s): G43.009 - Migraine without aura, not intractable, without status migrainosus Plan: Patient to continue her prescribed medication. Condition is chronic and stable continue to monitor. Plan Plan Patient was informed and verbally consented to the use of an ambient scribe for clinic note documentation during this visit. 1. Presbycusis A referral to Otolaryngology was made to evaluate hearing capabilities and initiate appropriate interventions as necessary. 2. Migraine Ongoing management as per existing treatment unless symptoms exacerbate, at which point further neurological evaluation may be necessary. 3. Hyperlipidemia Emphasized dietary modification to address elevated LDL cholesterol levels. Discussed potential adjustments in atorvastatin if dietary measures prove inadequate. 4. Type 2 Diabetes Mellitus Initiated metformin therapy and arranged nutritional counseling to aid in managing diabetes. Planned regular monitoring of blood glucose levels and follow-up review. 6. Tinnitus Referred to ENT for detailed assessment and potential therapeutic intervention. Prescribed meclizine to address dizziness linked to auditory symptoms. Orders: Orders AMB Hemoglobin A1c Today Z13.9 - Encounter for screening, unspecified Referrals Ear/Nose/Throat Referral H93.19 - Tinnitus, unspecified ear Gym Instructor Nutrition Referral E11.9 - Type 2 diabetes mellitus without complications Medications: New metformin 500 mg PO DAILY 30 tabs 0RF E11.9 - Type 2 diabetes mellitus without complications lancets (Accu-Chek Fastclix Lancet Drum) As directed 200 ea 0RF E11.9 - Type 2 diabetes mellitus without complications blood sugar diagnostic (Accu-Chek Guide test strips) As directed 100 ea 0RF E11.9 - Type 2 diabetes mellitus without complications hydroxyzine HCl 25 mg PO Q8H 90 tabs 1RF itching meclizine 25 mg PO BID PRN 90 tabs 0RF dizziness lancing device with lancets (Accu-Chek FastClix Lancing Device kit) As directed 1 ea 0RF E11.9 - Type 2 diabetes mellitus without complications blood-glucose meter (Accu-Chek Guide Glucose Meter) As directed 1 ea 0RF alcohol swabs (Alcohol Pads) 1 pad topical TID 200 ea 1RF E11.9 - Type 2 diabetes mellitus without complications Patient Instructions: Patient Instructions - Take meclizine as instructed for dizziness if needed. - Use Atarax for nocturnal itching due to dermatitis. - Adhere to metformin 500 mg daily and monitor blood glucose levels as directed. - Keep a log of blood sugar readings and bring them to the next visit. - Implement dietary changes to manage cholesterol and blood sugar, considering manager infrastructure advice. - Follow up with an ENT for auditory evaluation and procedures tech review if dermatitis persists. - Return for a follow-up appointment in one month to assess diabetes management progress. Scribe Plan - Not visible on output: History of Present Illness The patient is a 59-year-old female presenting with tinnitus and presbycusis. She reports an onset of persistent tinnitus approximately four days after a cooking incident with extractor fan noise. The incident followed a fall related to a November, though no head injury or loss of consciousness was identified. The tinnitus is predominantly noticed during quiet moments, and the patient describes it as a sound similar to that of a cricket. This has caused increased sensitivity to noise and dizziness. No history of previous ear infection or auditory issues was stated before this incident. She reports lifelong migraine headaches and current management of allergic dermatitis, which she controls with non-perfumed oatmeal products due to fabric sensitivity. Additionally, she has been diagnosed with hyperlipidemia and Type 2 diabetes mellitus, the latter newly identified during this visit. The patient has concerns about managing her diabetes and hyperlipidemia, expressed interest in dietary changes, and requested nutritional counseling. Social History - Lives in close proximity to neighbors with large dogs, which may contribute to allergy symptoms. - Prefers a non-perfumed, oatmeal-based regimen for skin care due to allergic dermatitis. 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 - Reports having made dietary adjustments recently, such as reducing sugar intake. - Interested in nutritional guidance from a Northern Irish-speaking manager infrastructure to manage weight and diabetes. Review of Systems - Ears: Reports tinnitus in the left ear, sensitivity to loud noises. - Neurologic: Reports dizziness. - Dermatologic: Reports chronic allergic dermatitis managed with topical oatmeal-based products and antihistamines. Physical Exam Appearance: Alert. Oriented X3. No acute distress. Head: Normal external exam. Normocephalic. Atraumatic. Eyes: Pupils are equal, round, and reactive to light. Extraocular movements intact. Conjunctiva and sclera normal. Eyelids normal. Ears: External auditory canal normal. Tympanic membranes normal. Patient reports tinnitus in the left ear. Throat: Pharynx normal. Uvula midline. Moist mucous membranes. Neck: Normal inspection. Neck supple. Full range of motion. No adenopathy. Thyroid Normal. No meningeal signs. No neck mass noted. Cardiovascular: Normal heart rate and rhythm. Heart sound normal. No murmurs noted. Pulses normal throughout. Respiratory: No respiratory distress. Painless inspiration. Breath sounds normal. No wheezes/rales/rhonchi noted. Chest nontender. No accessory muscle usage noted or decreased air movement noted. Abdomen: Soft and nontender. Bowel sounds normal in all 4 quadrants. No distention noted. No organomegaly noted. No visible injury noted. Back: No costovertebral angle tenderness. Full range of motion noted. Skin: Skin warm and dry. Normal skin color. Normal skin turgor. No rashes/lesions/lacerations noted. Patient reports itching and uses oatmeal-based products for relief. Extremities: No lower extremity edema. Extremities exhibit normal range of motion. Extremities nontender. Neuro: Oriented X 3. No motor deficit. No sensory deficit. Reflexes normal. Patient reports dizziness and is advised to try meclizine for relief. Results - Labs: Hemoglobin A1c elevated at 6.5%, indicating Type 2 diabetes diagnosis. - Tests: Lipid panel results showed elevated triglycerides and LDL cholesterol. Plan Patient was informed and verbally consented to the use of an ambient scribe for clinic note documentation during this visit. 1. Presbycusis A referral to Otolaryngology was made to evaluate hearing capabilities and initiate appropriate interventions as necessary. 2. Migraine Ongoing management as per existing treatment unless symptoms exacerbate, at which point further neurological evaluation may be necessary. 3. Hyperlipidemia Emphasized dietary modification to address elevated LDL cholesterol levels. Discussed potential adjustments in atorvastatin if dietary measures prove inadequate. 4. Type 2 Diabetes Mellitus Initiated metformin therapy and arranged nutritional counseling to aid in managing diabetes. Planned regular monitoring of blood glucose levels and follow-up review. 6. Tinnitus Referred to ENT for detailed assessment and potential therapeutic intervention. Prescribed meclizine to address dizziness linked to auditory symptoms. Discussion Notes Patient Instructions - Take meclizine as instructed for dizziness if needed. - Use Atarax for nocturnal itching due to dermatitis. - Adhere to metformin 500 mg daily and monitor blood glucose levels as directed. - Keep a log of blood sugar readings and bring them to the next visit. - Implement dietary changes to manage cholesterol and blood sugar, considering manager infrastructure advice. - Follow up with an ENT for auditory evaluation and procedures tech review if dermatitis persists. - Return for a follow-up appointment in one month to assess diabetes management progress.
== END 2024-12-14 14:16 | disposition home or self-care (01) ==
PROVIDERS: PCP Internal Medicine; Visit Provider Physician Assistant Medical
DX: H93.19 Tinnitus, unspecified ear (principal); E11.9 Type 2 diabetes mellitus without complications; E78.5 Hyperlipidemia, unspecified; G43.009 Migraine without aura, not intractable, without status migrainosus

== ENCOUNTER → 2024-12-14 13:18 | Outpatient (BNVA) | payer OTHER, SELFPAY | PROVIDERS: PCP Internal Medicine; Visit Provider Physician Assistant Medical | DX: H93.12 Tinnitus, left ear (principal); E11.9 Type 2 diabetes mellitus without complications; E78.5 Hyperlipidemia, unspecified; G43.009 Migraine without aura, not intractable, without status migrainosus | CPT/HCPCS: 83036; 96127; 99212 ==

== ENCOUNTER 2025-01-16 12:52 | Outpatient (AMB) | payer OTHER, SELFPAY ==
--- NOTE | 2025-01-16 12:57 | A.OFFPC_ITS ---
Vital Signs 01/16/25 13:04 Height 5 ft 8 in Weight 185 lb 2 oz BMI 28.1 BP 130/82 Blood Pressure Location Lt brachial Position Sitting Pulse 88 Pulse Source Pulse Oximeter Temp 97.3 F Temp Source Temporal Artery Scan Pulse Oximetry (%) 99 Intake Visit Reasons: PHYSICAL Him Manager Required: No Accompanied by: Self / Same As Patient Allergies hydroxyzine [HYDROXYZINE] Allergy (Intermediate, Verified 01/16/25 13:19) THROAT TIGHT , dry mouth Penicillins [PENICILLINS] Allergy (Intermediate, Verified 01/16/25 13:19) RASH pollen extracts [POLLEN] Allergy (Intermediate, Verified 01/16/25 13:19) THROAT GETS ITCHY tramadol Allergy (Intermediate, Verified 01/16/25 13:19) sleepiness Medication List - Last Reconciled 01/16/25 by Alejandra Spicer MD alcohol swabs (Alcohol Pads) 1 pad topical TID aripiprazole 10 mg PO DAILY bisacodyl (Dulcolax (bisacodyl)) 20 mg (4 x 5 mg) PO ONCE 1 day blood sugar diagnostic (Accu-Chek Guide test strips) As directed blood-glucose meter (Accu-Chek Guide Glucose Meter) As directed budesonide-formoterol 160-4.5 mcg/actuation 2 puffs inhalation BID buspirone 15 mg PO TID cetirizine 10 mg PO DAILY 90 days cholecalciferol (vitamin D3) 1,250 mcg PO QWEEK 90 days diclofenac potassium 50 mg PO BID PRN dupilumab (Dupixent) 200 mg (1.14 mL) subcut Q2W 4 weeks escitalopram oxalate mg PO DAILY hydrocortisone 2.5% (Proctosol HC) 1 appl MT BID-QID PRN hydroxyzine HCl 25 mg PO Q8H incontinence pad, liner, disp As directed lancets (Accu-Chek Fastclix Lancet Drum) As directed lancing device with lancets (Accu[employer]k FastClix Lancing Device kit) As directed latex gloves (Latex Gloves, Large) As directed meclizine 25 mg PO BID PRN metformin 500 mg PO DAILY polyethylene glycol 3350 (Miralax) 238 grams PO ONCE rosuvastatin 10 mg PO DAILY 90 days sennosides (Natural Senna Laxative) 17.2 mg (2 x 8.6 mg) PO BEDTIME sumatriptan succinate mg PO PRN sumatriptan succinate mg PO tacrolimus 0.1% 1 appl topical BID underpads (Bed Underpads) As directed Tobacco use date assessed: 12/14/24 Dental Screening Dental Screen Date: 12/14/24 HPI HPI Comments History of Present Illness Details The patient is a 59-year-old female presenting with an annual physical examination. She has a history of diabetes mellitus type 2, with an HbA1c of 6.5% that indicates the need for ongoing monitoring and possibly adjustment of her metformin therapy. Her hypercholesterolemia is being managed with rosuvastatin, and she is following a diet that limits carbohydrates and sugar intake. She has major depressive disorder and generalized anxiety disorder, which are managed with Abilify and Citalopram. The patient reports occasional depressive symptoms and mild anxiety. For allergies, she is prescribed hydroxyzine and cetirizine but finds hydroxyzine to cause drowsiness. The patient suffers from migraines, for which she uses sumatriptan, and experiences mild tinnitus, more prominent when resting. Preventive health measures include a colonoscopy with findings of tubular adenomas, a normal pap smear, and an upcoming mammogram. She had received a tetanus vaccine in 2010, and there is a discussion about varicella immunity for potential Shingrix vaccination. Her family history includes cardiac disease and stroke in parents. - Tetanus vaccination due, last received in 2010 - Colonoscopy with tubular adenomas dete cted, follow-up in five years - Normal pap smear in 2022 - Mammography scheduled for May, ing appointment confirmation - HbA1c tested with a result of 6.5% ind icating diabetes management - Discussion about varicella immunity fo r potential Shingrix vaccination [facility] Medical History Hyperlipidemia LDL goal <70 New onset type 2 diabetes mellitus History of mammogram (~06/08/24) Tinnitus Tubular adenoma of colon Vitiligo Left foot pain Physical exam SALOMON (generalized anxiety disorder) Mild recurrent major depression Migraines GERD (gastroesophageal reflux disease) Asthma Cough Chronic allergic rhinitis Moderate persistent asthma Mixed hyperlipidemia Depression with anxiety Surgical History History of colonoscopy (~11/07/24) History of removal of cyst Family History Father CAD (coronary artery disease) Mother Chronic mental illness Stroke Paternal Grandmother Cancer Paternal Aunt Liver cancer Sister Multiple sclerosis Brother ALS (amyotrophic lateral sclerosis) Sister Schizophrenia Family/Other FH: mental illness Social History Household Members: None Housing: Apartment Alcohol intake: never Patient Tobacco Use Status: Never used Tobacco e-Cigarette/Vaping Use: Never Used Second Hand Smoke Exposure: No service: No Current occupational status: unemployed Sexual orientation: Straight/Heterosexual Gender identity: Female Cognitive needs: No Hearing needs: No Vision needs: Yes Female Reproductive History Menstrual Age of Menarche: 11 Questionnaire PHQ-9 Over the last 2 weeks, how often have you been bothered by any of the following problems? 1. Little interest or pleasure in doing things: not at all 2. Feeling down, depressed, or hopeless: more than half the days 3. Trouble falling or staying asleep, or sleeping too much: more than half the days 4. Feeling tired or having little energy: more than half the days 5. Poor appetite or overeating: more than half the days 6. Feeling bad about yourself - or that you are a failure or have let yourself or your family down: several days 7. Trouble concentrating on things, such as reading the newspaper or watching television: several days 8. Moving or speaking so slowly that other people could have noticed. Or the opposite - being so fidgety or restless that you have been moving around a lot more than usual: several days 9. Thoughts that you would be better off or of hurting yourself in some way: not at all Total score: 11 Depression Screening Interpretation: Positive Depression Screening Follow-up: Existing condition, In treatment, Community Mental Health Worker F/U and Follow- up Visit Requested Depression Screening Done: Yes 11225 - PHQ-9 Billing: Yes Source: Developed by Drs. Kayden Eldridge, Chelsy Julian, Cholo Garcia and colleagues, with an educational jeannie from [employer]. Thrive Questionnaire Date Thrive assessed: 01/16/25 I am a: Patient What is your living situation today?: I have a steady place to live Within the past 12 months, did the food you bought not last and you didn't have the money to get more?: Never true Within the past 12 months, did you worry whether your food would run out before you got money to buy more?: Sometimes True Do you have trouble paying for medicines?: No Do you have trouble getting transportation to medical appointments?: No Do you have trouble paying your heating and electricity bill?: Yes Do you have trouble taking care of your child, family member or friend?: No Do you have trouble with day-to-day activities such as bathing, preparing meals, shopping, managing finances, etc.?: No Are you currently unemployed and looking for a job?: No Are you interested in more education?: No Please select the resources that you would like help with: None Currently or been in a relationship where the following occur: I choose not to answer THRIVE Score: 2 AUDIT C Alcohol Use Questionnaire (AUDIT-C) 1. How often do you have a drink containing alcohol?: Never 3. How often do you have six or more drinks on one occasion?: Never Total Score: 0 Score Reviewed/Action Taken: No SALOMON-7 AMB Questionnaire SALOMON-7 Date SALOMON - 7 assessed: 01/16/25 Feeling nervous, anxious, or on edge: 1 = Several days Not being able to stop or control worryin = Several days Worrying too much about different things: 1 = Several days Trouble relaxin = Several days Being so restless that it is hard to sit still: 2 = More than half the days Becoming easily annoyed or irritable: 1 = Several days Feeling afraid as if something awful might happen: 1 = Several days Total SALOMON-7 score (0-4 normal; 5-9 mild; 10-14 moderate; 15-21 severe): 8 Source: Developed by Drs. Kayden Eldridge, Chelsy Julian, Cholo Garcia and colleagues, with an educational jeannie from [employer]. SALOMON-7 Assessment Billing SALOMON-7 Assessment Tool: SALOMON-7 Assessment 08204 Review of Systems Const All systems reviewed & are unremarkable except as noted in HPI and below Card Denies chest pain at rest, Denies chest pain with activity, Denies edema, Denies irregular heart rhythm, Denies claudication, Denies dyspnea, Denies dyspnea on exertion, Denies orthopnea, Denies paroxysmal nocturnal dyspnea and Denies slow heart rate Resp Denies cough, Denies dyspnea and Denies dyspnea on exertion GI Denies abdominal pain, Denies change in bowel habits, Denies excessive flatus, Denies nausea and Denies vomiting Denies urinary incontinence, Denies urinary hesitancy and Denies urinary urgency Musc Denies atrophy, Denies deformity and Denies limited range of motion Skin/Breast Denies bleeding lesions, Denies changing lesions and Denies rash Physical exam (Primary Care) Vital Signs: Last Vital Signs Temp 97.3 F 01/16/25 13:04 Pulse 88 01/16/25 13:04 BP 130/82 01/16/25 13:04 Pulse Ox 99 01/16/25 13:04 BMI result Body Mass Index 28.1 Tobacco/Smoking Status: Tobacco use Status Tobacco use date assessed 12/14/24 01/16/25 12:58 Patient Tobacco Use Status Never used Tobacco 01/16/25 12:58 e-Cigarette/Vaping Use Never Used 01/16/25 12:58 PHQ-9: PHQ-9 Score PHQ-9: Total score 11 01/16/25 13:39 Depression Screening Interpretation: Positive Depression Screening Follow-up: Existing condition, In treatment, Community Mental Health Worker F/U and Follow- up Visit Requested Thrive Assessment: Date of Thrive Assessment Date Thrive assessed 01/16/25 01/16/25 12:58 Currently or been in a relationship where the following occur: I choose not to answer [facility] Head: Yes normal to inspection, Yes normocephalic and Yes atraumatic Ears: external ears normal Eyes General: appearance normal, both eyes and all related structures Eyelids: Yes eyelids normal Conjunctivae: conjunctivae normal Neck Neck: Yes normal visual inspection and Yes supple Resp Effort & Inspection: normal respiratory effort Auscultation: clear to auscultation bilaterally Cardio Jugular venous distension: no JVD Rate: regular rate Rhythm: regular rhythm Heart sounds: S1 normal heart sound present and S2 normal heart sound present GI Inspection: Yes normal to inspection Palpation (GI): Soft to palpation and nontender Auscultation: normal bowel sounds Skin General skin exam: no rashes or lesions noted Neuro General: no focal motor deficits Extrem General: Yes full ROM Psych Appearance: grossly normal Immunizations Boostrix Tdap 2.5 Lf unit-8 mcg-5 Lf/0.5 mL intramuscular syringe Performing Provider: Alejandra Spicer MD Performing Location: [facility] Administered by: LILLIE Nesbitt on 01/16/25 13:39 Dose Route Admin Location Dispensed Lot Number Expiration Date NDC Sewing Machine Maintenance Mechanic 0.5 mL IM Left Deltoid 0.5 mL [id number] 04/19/27 [id number] [employer] VIS Given Date VIS Provided VIS Publication Date 01/16/25 Single Vaccine 24 Eligibility Eligibility Date Funding Source Not [facility] Eligible 01/16/25 Private Coding Level of Care Code Est Pt Prev Care 40-64y(08345) Diagnoses Physical exam Z00.00 Mild recurrent major depression F33.0 New onset type 2 diabetes mellitus E11.9 Additional Codes SALOMON-7 Assessment Billing - SALOMON-7 Assessment Tool: SALOMON-7 Assessment 65406 ([id number]) PHQ-9 - 87531 - PHQ-9 Billing: Yes ([id number]) Time Spent (min) 31 Assessment & Plan Assessment & Plan (1) Physical exam: Code(s): Z00.00 - Encounter for general adult medical examination without abnormal findings Category: Medical (2) Mild recurrent major depression: Code(s): F33.0 - Major depressive disorder, recurrent, mild Category: Medical (3) New onset type 2 diabetes mellitus: Code(s): E11.9 - Type 2 diabetes mellitus without complications Category: Medical Plan Hypercholesterolemia treatment includes rosuvastatin as part of her regimen. For depression and anxiety, ongoing management with Abilify and Citalopram continues. We will discuss hydroxyzine replacement due to drowsiness. Preventive tests include a future mammogram and potential Shingrix vaccination following confirmation of varicella status. Follow-up will focus on monitoring her chronic conditions, nutritional intake, and addressing family history implications on her health.: Patient was informed and verbally consented to the use of an ambient scribe for clinic note documentation during this visit. We discussed the necessary vaccinations due, particularly the tetanus booster, given its past date in 2010. Review of her diabetes management was addressed, emphasizing continued dietary management along with metformin, supported by recent HbA1c results worthy of attention. The option of considering alternates for her allergy medication due to sedative effects was discussed. Emphasis was placed on continued regular screenings and following up on preventive health measures such as mammography and exploring the varicella status for future immunization. We talked over her current regimen for depression and anxiety, noting her response and stability. She was advised on her family medical history relating to cardiovascular implications, reinforcing the commitment to regular assessments and proactive management strategies. Orders: Orders Lipid Panel Today E78.5 - Hyperlipidemia, unspecified Microalbumin, Random (w Creat) Today R80.9 - Proteinuria, unspecified Vitamin D 25-OH Total Today E55.9 - Vitamin D deficiency, unspecified Comprehensive Mayer. Panel Fast Today E11.9 - Type 2 diabetes mellitus without complications Varicella IgG Antibody Today Z23 - Encounter for immunization TDaP Immunization Today Z23 - Encounter for immunization Referrals Ear/Nose/Throat Referral H93.19 - Tinnitus, unspecified ear Patient Instructions: - Receive a tetanus booster vaccination today. - Continue with dietary modifications to manage diabetes. - Continue taking metformin and other current medications as prescribed. - Schedule your mammogram if not already done. - Discuss with the pharmacy about possible alternative medications for allergies as hydroxyzine causes drowsiness. - Follow up regarding varicella immunity testing for the Shingrix vaccine. - Attend regular follow-up appointments to monitor chronic conditions. - Inform us if experiencing any new symptoms or if existing symptoms worsen.
[2025-01-16 13:04] VITALS: BP 130/82; PULSE 88; TEMP 36.3; O2SAT 99; BMI 28.1
== END 2025-01-16 13:43 | disposition home or self-care (01) ==
LOC: HO.HMCH 12:53
PROVIDERS: PCP Internal Medicine; Visit Provider Internal Medicine
DX: Z00.00 Encounter for general adult medical examination without abnormal findings (principal); F33.0 Major depressive disorder, recurrent, mild; E11.9 Type 2 diabetes mellitus without complications; Z23 Encounter for immunization

== ENCOUNTER → 2025-01-16 12:52 | Outpatient (BNVA) | payer OTHER, SELFPAY | PROVIDERS: PCP Internal Medicine; Visit Provider Internal Medicine | DX: Z00.00 Encounter for general adult medical examination without abnormal findings (principal); E11.9 Type 2 diabetes mellitus without complications; E78.00 Pure hypercholesterolemia, unspecified; F33.0 Major depressive disorder, recurrent, mild; E78.5 Hyperlipidemia, unspecified; R80.9 Proteinuria, unspecified; E55.9 Vitamin D deficiency, unspecified; Z23 Encounter for immunization; Z79.84 Long term (current) use of oral hypoglycemic drugs | CPT/HCPCS: 90471; 90715; 96127; 99396 ==

== ENCOUNTER 2025-02-05 12:36 | Outpatient (AMB) | payer OTHER, SELFPAY ==
--- NOTE | 2025-02-05 12:58 | A.OFFVIS_ITS ---
Vital Signs 02/05/25 13:08 Height 5 ft 8 in Weight 188 lb BMI 28.6 BP 120/72 Intake Visit Reasons: annual Maid Cleaning Cooking Required: Yes Maid Cleaning Cooking Language: Bread Dough Mixer Services: Maid Cleaning Cooking Present (in person) Maid Cleaning Cooking Name: Shannan HernandezRAGHAV hatch Information Interpreted: non-clinical & clinical Dynamite Packing Machine Feeder: Dynamite Packing Machine Feeder Present (RAGHAV Bhatia) Accompanied by: Self / Same As Patient Allergies hydroxyzine [HYDROXYZINE] Allergy (Intermediate, Verified 02/05/25 13:02) THROAT TIGHT , dry mouth Penicillins [PENICILLINS] Allergy (Intermediate, Verified 02/05/25 13:02) RASH pollen extracts [POLLEN] Allergy (Intermediate, Verified 02/05/25 13:02) THROAT GETS ITCHY tramadol Allergy (Intermediate, Verified 02/05/25 13:02) sleepiness Is last menstrual period known: No Post menopausal: Yes Patient : No HPI Comments Details: Presenting for annual exam. Complaining of urine incontinence Last Pap/HPV was negative in 01/30 Last Mammogram was BI-RADS 1 in 06/02 Last Colonoscopy was done in 11/03 [facility] Medical History Hyperlipidemia LDL goal <70 New onset type 2 diabetes mellitus History of mammogram (~06/08/24) Tinnitus Tubular adenoma of colon Vitiligo Left foot pain Physical exam SALOMON (generalized anxiety disorder) Mild recurrent major depression Migraines GERD (gastroesophageal reflux disease) Asthma Cough Chronic allergic rhinitis Moderate persistent asthma Mixed hyperlipidemia Depression with anxiety Surgical History History of colonoscopy (~11/07/24) History of removal of cyst Family History Father CAD (coronary artery disease) Mother Chronic mental illness Stroke Paternal Grandmother Cancer Paternal Aunt Liver cancer Sister Multiple sclerosis Brother ALS (amyotrophic lateral sclerosis) Sister Schizophrenia Family/Other FH: mental illness Social History Household Members: None Housing: Apartment Alcohol intake: never Patient Tobacco Use Status: Never used Tobacco e-Cigarette/Vaping Use: Never Used Second Hand Smoke Exposure: No service: No Current occupational status: unemployed Sexual orientation: Straight/Heterosexual Gender identity: Female Cognitive needs: No Hearing needs: No Vision needs: Yes Female Reproductive History Menstrual Age of Menarche: 11 Total pregnancies: 2 Full term: 1 Ab spontaneous: 1 Date of last pap smear: 02/03/23 (negative hpv, negative pap smear) Date of Mammogram: 06/08/24 Review of Systems Const All systems reviewed & are unremarkable except as noted in HPI and below Card Reports as per HPI Resp Reports as per HPI GI Reports as per HPI and Reports no additional complaints Reports as per HPI Physical Exam Vital Signs: Last Vital Signs BP 120/72 02/05/25 13:08 BMI result Body Mass Index 28.6 Const General: cooperative, healthy appearing and comfortable Chest Chest palpation & inspection: normal inspection of the chest and normal palpation of entire chest wall Breast/axilla inspection: normal inspection of the breasts and normal inspection of the axillae Breast/axilla palpation: normal palpation of the breasts, normal palpation of the axillae and no axillary lymphadenopathy Resp Effort & Inspection: normal respiratory effort Auscultation: clear to auscultation bilaterally Percussion: percussion normal Cardio Palpation: normal PMI Rate: regular rate Rhythm: regular rhythm Heart sounds: no murmurs and no rubs Peripheral pulses: Peripheral pulses 2+ throughout GI Inspection: Yes normal to inspection Palpation (GI): Soft to palpation, nontender, no guarding, not rigid and No hepatosplenomegaly present Percussion: Yes normal to percussion Auscultation: normal bowel sounds Rectal Exam - Female: deferred General: Yes bladder normal to palpation External Female Exam: No lesion Speculum Exam - Vagina: normal appearance of the vagina, normal palpation, normal vaginal discharge and not erythematous Speculum Exam - Cervix: normal appearance of the cervix and normal palpation Bimanual exam- vagina & uterus: normal bimanual exam, normal palpation, uterine size normal, bladder normal to palpation, consistency normal and normal palpation Bimanual Exam- Adnexa, other: normal adnexae, no masses and no tenderness Assessment & Plan Assessment & Plan (1) Well woman exam: Code(s): Z01.419 - Encounter for gynecological examination (general) (routine) without abnormal findings Category: Medical Plan: Co testing not indicated this year. Counseled the patient about the recommended dietary allowance of 1200 mg of Calcium & 600 IU of vitamin D. Instructions given the patient to schedule next screening Mammogram in 06/02. The patient was instructed to perform monthly self-breast exams and schedule annual exam in a year. All questions answered and the patient verbalized understanding. (2) Urine incontinence: Code(s): R32 - Unspecified urinary incontinence Category: Medical Plan: Discussed with the patient the different types of Urine incontinence, stress urinary incontinence, intrinsic sphincter deficiency, overactive bladder and its work up. We will refer to Urology. All questions answered, the patient verbalized understanding. Instructed the patient to call our office back in case a referral appointment is not scheduled, missed or canceled so that we will assist on rescheduling another appointment, the patient verbalized understanding agreed with the plan. Orders: Referrals Urology Referral R32 - Unspecified urinary incontinence Coding Level of Care Code Est Pt Prev Care 40-64y(61624) Diagnoses Well woman exam Z01.419 Urine incontinence R32
[2025-02-05 13:08] VITALS: BP 120/72; BMI 28.6
== END 2025-02-05 13:45 | disposition home or self-care (01) ==
PROVIDERS: PCP Internal Medicine; Visit Provider Obstetrics & Gynecology
DX: Z01.419 Encounter for gynecological examination (general) (routine) without abnormal findings (principal); R32 Unspecified urinary incontinence
CPT/HCPCS: 99396; 99459

== ENCOUNTER → 2025-02-05 12:36 | Outpatient (BNVA) | payer OTHER, SELFPAY | PROVIDERS: PCP Internal Medicine; Visit Provider Obstetrics & Gynecology | DX: Z01.419 Encounter for gynecological examination (general) (routine) without abnormal findings (principal); R32 Unspecified urinary incontinence | CPT/HCPCS: 99396; 99459 ==

== ENCOUNTER 2025-03-18 13:00 | Outpatient (AMB) | payer OTHER, SELFPAY ==
--- NOTE | 2025-03-18 13:06 | MHC.OFFVIS ---
Vital Signs 03/18/25 13:07 Height 5 ft 8 in Weight 181 lb 14.102 oz BMI 27.7 BP 110/76 Blood Pressure Location Lt brachial Position Sitting Pulse 79 Pulse Source Pulse Oximeter Pulse Oximetry (%) 96 Oxygen Delivery Method Room Air Intake Visit Reasons: Shortness of breath Accompanied by: Self / Same As Patient Allergies hydroxyzine [HYDROXYZINE] Allergy (Intermediate, Verified 03/18/25 13:09) THROAT TIGHT , dry mouth Penicillins [PENICILLINS] Allergy (Intermediate, Verified 03/18/25 13:09) RASH pollen extracts [POLLEN] Allergy (Intermediate, Verified 03/18/25 13:09) THROAT GETS ITCHY tramadol Allergy (Intermediate, Verified 03/18/25 13:09) sleepiness HPI Comments Details: The patient is a 59 y/o woman with a history of allergies and asthma. Received allergy shots for many years. Started developing a dry cough years ago. Recently underwent a metacholine challenge + hyper reactive airways and asthma. She was placed on Flovent. It has been partialy helpful. She states that she has been having of shortness of breath at night. She has been waking up with them. Denies any heartburn. Has not required any prednisone. We did optimize therapy with the use of Bevespi in addition to her Flovent and also using her rescue inhaler. She still requires a rescue inhaler couple times a day and her symptoms usually worse at nighttime. We did give her the reflux diet which he follows very closely. Her barium swallow did not show any reflux however. She should do should continue with the reflux diet closely. The patient did get allergy shots in the past. However, she has not received them many years. Based on the fact that she has maximizing her respiratory therapy will do additional testing to see if we can consider biologic therapy for uncontrolled asthma. She did follow up with Allergy. She had to stop her allergy medicine because of allergy testing. Therefore she is developing hives and also worsening wheezing. She has been using her rescue inhaler. Her x-ray she had back in May 2019 appear to be unremarkable. If the patient's symptoms persist even after starting allergy shots or biologic therapy will consider CT scan of the chest and also consider bronchoscopy to further address the issue. She continues on the singular in does have other allergy medicine. We did review her blood work demonstrating negative ALVIN and also negative studies for Sjogren's. She did have a RAST panel that was only positive for dogs. She also had a proper allergy testing demonstrating allergy to other animals as well. She is not exposed at this time. In the meantime her respiratory symptoms are stable so will hold off on biologic therapy. At this point her symptoms are getting worse and she is not responding to the current therapy, therefore, will start Xolair at this time. She does have an elevated IgE level and also has positive allergy testing based on the RAST. She did start the Xolair and has received 2 injections already. The therapy has been helpful. Her inhalers have been changed since she has not been able to get the Bevespi and she has continue just on the Flovent. Explained to her that she should be on the long-acting bronchodilators therefore I will start her on trelegy. In the meantime she is to continue the Xolair shots. 09/19/2020 the patient is here for pulmonary follow-up visit. Overall she is doing better. She continues on the Xolair injections. She is tolerating them well. At this point we will provide her with teaching in a prescription for an EpiPen. This is in case she has an allergic reaction to the medication. In the meantime the patient has been and her respiratory therapy. She has been adherent to the therapy. She does have intermittent cough [id number] severity. Denies any significant phlegm. Has not had any recent asthma exacerbations. Her nasal congestion also has improved to some degree. She still has a mild postnasal drip resulting in upper airway cough. Otherwise the patient is without any other complaints. 03/13/2021 the patient is here for pulmonary follow-up visit. She continues to struggle with her asthma. Has had increasing wheezing and shortness of breath and chest tightness. Moderate in severity. She has required additional prednisone. She continues on the Xolair. Does not appear to have good control of her asthma on the Xolair at this time. Therefore, will go ahead and request blood work and also start the process to switch over to Dupixent. In the meantime the patient is maximize with respiratory therapy initially on Trelegy, but then it was not covered. Therefore Breo was requested. She continues on Incruse. She was referred to Allergy, but it has taken a longer time for her to get an appointment. Therefore we will go ahead and switch her to Dupixent from the Xolair at this time. She will also need additional prednisone. 02/07/2023 the patient is here for a pulmonary follow-up visit. Overall the patient has been doing very well. She continues with Dupixent every 2 weeks. Her asthma has been much better controlled. She has not required any prednisone the quality of life is a lot better. She is very thankful for the Dupixent in hopeful to continue the therapy at this time. However, she started developing vitiligo and appears to be getting worse. She is wondering if it can be releated to the Dupixent. No adverse effects of vitiligo on the package insert, however, I did review a case report of a person who developed worsening vitiligo from the dupixent. Therefore, I did give the patient information about Tezspire. If she develops worsening vitiligo she will go to change the dupixent to Tezspire. 03/09/2024 the patient is here for a pulmonary follow-up visit. She continues to do very well on the Dupixent. The Dupixent as really normalize for asthma in her allergies. She continues to take injections every 2 weeks. She has concerned about the vitiligo her. Does not appear to be significantly worse when compared to her previous visit about a year ago. Although she is going to monitor closely. Specially the vitiligo happens in the face. Is now well documented that the Dupixent can potentially precipitate the bull's vitiligo they have the tendency of developing it. Therefore, they look at her blood work. 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 Therefore, would not be unreasonable to consider switching over to Fasenra or Tezspire in the future. Depending how she responds to the Dupixent and make sure that the vitiligo this worsened. Indeed on the biologic therapy her asthma has been significantly well controlled she will continue for now. 04/17/2024 the patient is here for a pulmonary visit. She recently was starting to get life insurance and she could not get the right premium because of the question COPD. We did do a spirometry in the office. Her lung mechanics are normal. The patient has a history of asthma but no evidence of any COPD at this time. The patient is not at risk of developing COPD. I did give her a letter stating that fact. She is continues on Dupixent. Her vitiligo is not getting any worse so will continue for now. She has also using the Symbicort with good effect. From a respiratory status the patient is doing well. She is also dealing with other musculoskeletal issues which she is currently being evaluated by primary care doctor. Otherwise patient is without any other concerns or complaints. Will follow-up in the next year. If patient has any issues prior to that she will call for an earlier assessment. 09/10/2024 the patient is here for a pulmonary follow-up visit. Overall she continues to do well. She is monitoring closely the vitiligo. Likely worsened by the use the Dupixent. She continues to Dupixent 300 mg every 2 weeks. We did have blood work. Seems like her eosinophils are better. We are still waiting for the IgE level. She is reluctant to switching her Dupixent since she already tried and failed Xolair. In addition to that the patient does not want to try test prior specially with the risk of the eczema. Will go ahead and continue with the Dupixent for now very cautiously. Will go ahead and decrease her dose to 100 mg to minimize any potential adverse effects. Specially since she is doing well. If she develops any worsening vitiligo she would have to stop it. She will continue with respiratory medications as prescribed. The patient follow-up in 6 months. 03/18/2025 the patient is here for a pulmonary follow-up visit. Overall she is doing very well. She continues on Dupixent. The vitiligo seems to be stable. No significant worsening except some spots on her legs. But she has been talking to her siblings and there is a few them that have had worsening vitiligo even without the Dupixent or any other injections. He feels it is likely just her progression of disease. At this point the injections have been very helpful. She still has her inhalers as prescribed. We did do blood work and her eosinophils and also IgE levels are significantly down to the point that they are normal. Therefore I did advise her for her to stand Dupixent. Will follow-up sometime in the spring. If she has any issues prior to that she will call. Today she will get some additional adhesions for the Dupixent. [facility] Medical History Hyperlipidemia LDL goal <70 New onset type 2 diabetes mellitus History of mammogram (~06/08/24) Tinnitus Tubular adenoma of colon Vitiligo Left foot pain Physical exam SALOMON (generalized anxiety disorder) Mild recurrent major depression Migraines GERD (gastroesophageal reflux disease) Asthma Cough Chronic allergic rhinitis Moderate persistent asthma Mixed hyperlipidemia Depression with anxiety Surgical History History of colonoscopy (~11/07/24) History of removal of cyst Family History Father CAD (coronary artery disease) Mother Chronic mental illness Stroke Paternal Grandmother Cancer Paternal Aunt Liver cancer Sister Multiple sclerosis Brother ALS (amyotrophic lateral sclerosis) Sister Schizophrenia Family/Other FH: mental illness Social History Household Members: None Housing: Apartment Alcohol intake: never Patient Tobacco Use Status: Never used Tobacco e-Cigarette/Vaping Use: Never Used Second Hand Smoke Exposure: No service: No Current occupational status: unemployed Sexual orientation: Straight/Heterosexual Gender identity: Female Cognitive needs: No Hearing needs: No Vision needs: Yes Female Reproductive History Menstrual Age of Menarche: 11 Review of Systems Const Denies fever(s) Eyes Reports no additional complaints, Denies change in vision and Denies other visual disturbances ENT Denies change in voice, Denies nasal discharge and Denies sinus pain Card Reports no additional complaints, Denies chest pain, Denies chest pain with activity, Denies dyspnea and Denies dyspnea on exertion Resp Reports as per HPI, Reports no additional complaints, Reports cough, Denies pain on inspiration, Denies pain with cough, Denies dyspnea, Denies dyspnea on exertion and Denies wheezing GI Reports as per HPI, Reports no additional complaints, Denies abdominal pain, Denies change in bowel habits, Denies change in stool character, Denies early satiety, Denies dyspepsia, Denies heartburn, Denies nausea and Denies vomiting Reports as per HPI, Denies hematuria and Denies dysuria Musc Denies atrophy, Denies deformity and Denies limited range of motion Skin/Breast Reports change in pigmentation, Reports changing lesions, Denies pruritus and Denies erythema Aller/Immun Denies wheezing Physical Exam Vital Signs: Last Vital Signs Pulse 79 03/18/25 13:07 BP 110/76 03/18/25 13:07 Pulse Ox 96 03/18/25 13:07 Oxygen Delivery Method Room Air 03/18/25 13:07 BMI result Body Mass Index 27.7 Const General: cooperative, healthy appearing and comfortable Neck Neck: Yes normal visual inspection, Yes full ROM and Yes no lymphadenopathy Chest Chest palpation & inspection: normal inspection of the chest Breast/axilla palpation: normal palpation of the breasts, normal palpation of the axillae and no axillary lymphadenopathy Resp Effort & Inspection: normal respiratory effort Auscultation: clear to auscultation bilaterally and no wheezes Cardio Palpation: normal PMI Rate: regular rate Rhythm: regular rhythm Heart sounds: no murmurs and no rubs Peripheral pulses: Peripheral pulses 2+ throughout GI Palpation (GI): Soft to palpation Skin Other: Lesions: lesion noted (vitiligo upper extremities) Assessment & Plan Assessment & Plan (1) Moderate persistent asthma: Comment: no evidence of COPD Code(s): J45.40 - Moderate persistent asthma, uncomplicated Category: Medical Qualifiers: Asthma complication type: uncomplicated Qualified Code(s): J45.40 - Moderate persistent asthma, uncomplicated (2) Cough: Code(s): R05 - Cough Category: Medical Qualifiers: Cough type: chronic Qualified Code(s): R05.3 - Chronic cough (3) Chronic allergic rhinitis: Code(s): J30.9 - Allergic rhinitis, unspecified Category: Medical (4) GERD (gastroesophageal reflux disease): Code(s): K21.9 - Gastro-esophageal reflux disease without esophagitis Category: Medical Qualifiers: Esophagitis presence: with esophagitis Esophagitis bleeding: without hemorrhage Qualified Code(s): K21.00 - Gastro-esophageal reflux disease with esophagitis, without bleeding (5) Vitiligo: Comment: ?progression due to Dupixent Code(s): L80 - Vitiligo Category: Medical Plan continue Symbicort JAY as needed continue Dupixent injections every 2 weeks. We will decrease to 200mg every 2 weeks. Consider changing to Fasenra or Tezspire if worsening rash/hypigmentation. reflux diet laboratories are much better follow-up 6-8 months Orders: Orders Varicella IgG Antibody Today J45.40 - Moderate persistent asthma, uncomplicated Coding Level of Care Code Est Pt Level 4 (57130) Diagnoses Moderate persistent asthma without complication J45.40 Asthma complication type: uncomplicated Chronic cough R05.3 Cough type: chronic Chronic allergic rhinitis J30.9 Gastroesophageal reflux disease with esophagitis without hemorrhage K21.00 Esophagitis presence: with esophagitis Esophagitis bleeding: without hemorrhage Vitiligo L80 Time Spent (min) 16
[2025-03-18 13:07] VITALS: BP 110/76; PULSE 79; O2SAT 96; BMI 27.7
== END 2025-03-18 13:32 | disposition home or self-care (01) ==
LOC: HO.HPS 13:01
PROVIDERS: PCP Internal Medicine; Visit Provider Hospitalist
DX: J45.40 Moderate persistent asthma, uncomplicated (principal); R05.3 Chronic cough; J30.9 Allergic rhinitis, unspecified; K21.00 Gastro-esophageal reflux disease with esophagitis, without bleeding; L80 Vitiligo
CPT/HCPCS: 99214

== ENCOUNTER → 2025-03-18 13:00 | Outpatient (BNVA) | payer OTHER, SELFPAY | PROVIDERS: PCP Internal Medicine; Visit Provider Hospitalist | DX: J45.40 Moderate persistent asthma, uncomplicated (principal); R05.3 Chronic cough; J30.9 Allergic rhinitis, unspecified; K21.00 Gastro-esophageal reflux disease with esophagitis, without bleeding; L80 Vitiligo | CPT/HCPCS: 99212 ==

== ENCOUNTER 2025-04-01 12:42 | Outpatient (REF) | payer OTHER, SELFPAY ==
[2025-04-01 16:32] LABS: Urine Cytology See Pathology rpt
== END 2025-04-01 12:43 | disposition home or self-care (01) ==
LOC: HO.LAB 12:42
PROVIDERS: PCP Internal Medicine; Visit Provider Nurse Practitioner Family
DX: R31.29 Other microscopic hematuria (principal); R35.1 Nocturia; R35.0 Frequency of micturition; N39.3 Stress incontinence (female) (male)
CPT/HCPCS: 51798; 81003; 88112; 99202

== ENCOUNTER 2025-04-01 12:42 | Outpatient (AMB) | payer OTHER, SELFPAY ==
--- NOTE | 2025-04-01 12:59 | MHC.OFFVIS ---
Intake Visit Reasons: urinary incontinence Intake Note: New Patient is present for urinary incontinence Urology Rx: none PVR:0 ml's Blood Thinners:none Room Service Attendant Required: Yes Room Service Attendant Services: Room Service Attendant Present Room Service Attendant Name: BRETT FERNANDODREA Accompanied by: Self / Same As Patient Allergies hydroxyzine (HYDROXYZINE) Allergy (Intermediate, Verified 04/01/25 13:47) THROAT TIGHT , dry mouth Penicillins (PENICILLINS) Allergy (Intermediate, Verified 04/01/25 13:47) RASH pollen extracts (POLLEN) Allergy (Intermediate, Verified 04/01/25 13:47) THROAT GETS ITCHY tramadol Allergy (Intermediate, Verified 04/01/25 13:47) sleepiness Medication List - Last Reconciled 04/01/25 by LIZBETH Mims alcohol swabs (Alcohol Pads) 1 pad topical TID aripiprazole 10 mg PO DAILY blood sugar diagnostic (Accu-Chek Guide test strips) As directed blood-glucose meter (Accu-Chek Guide Glucose Meter) As directed budesonide-formoterol 160-4.5 mcg/actuation 2 puffs inhalation BID buspirone 15 mg PO TID cholecalciferol (vitamin D3) 1,250 mcg PO QWEEK 90 days dupilumab (Dupixent) 200 mg (1.14 mL) subcut Q2W 4 weeks escitalopram oxalate mg PO DAILY [Free style test strips As directed] incontinence pad, liner, disp As directed lancets (Accu-Chek Fastclix Lancet Drum) As directed lancing device with lancets (Accu-Chek FastClix Lancing Device kit) As directed latex gloves (Latex Gloves, Large) As directed metformin 500 mg PO DAILY rosuvastatin 10 mg PO DAILY 90 days sennosides (Natural Senna Laxative) 17.2 mg (2 x 8.6 mg) PO BEDTIME sumatriptan succinate mg PO underpads (Bed Underpads) As directed HPI Comments Details: Marianna is a very pleasant 59-year-old Sami-speaking female patient of Dr. Cee. She has a past medical history of hyperlipidemia, type 2 diabetes, generalized anxiety disorder, depression, migraines, GERD, asthma, and allergies. She presents to the office today as a new patient for ongoing lower urinary tract symptoms she has been experiencing. In discussion with the patient today she reports a longstanding history of urinary frequency, nocturia, and stress incontinence. She reports these symptoms have been present for many years. She does report a previous history of 1 vaginal of an average size babies. She reports utilizing approximately 4-5 Samara pads per day. She describes episodes of nocturia up to 4 times per night. We did discussed at length potential causes of these lower urinary tract symptoms as well as further treatment options and risks and benefits of these treatment options. In office urinalysis results reviewed with the patient today 2+ microscopic hematuria otherwise within normal limits. When asked she denies any previous history of nicotine dependence and or workplace chemical exposure. We discussed obtaining retroperitoneal ultrasound for further assessment evaluation. She also reports a history of snoring and fatigue upon wakening we discussed obtaining sleep study for further assessment evaluation. She denies gross/visible hematuria, dysuria, foul smelling urine, changes to urinary stream, flank pain, fever, and or chills. We did discussed potential causes of microscopic hematuria as well as lower urinary tract symptoms patient is experiencing. We discussed further treatment options of these urological conditions and risks and benefits of these treatment options. All questions were answered. She otherwise offers no other issues or concerns at this time. A1c 01/01 6.5 PFSH Medical History Hyperlipidemia LDL goal <70 New onset type 2 diabetes mellitus History of mammogram (~06/08/24) Tinnitus Tubular adenoma of colon Vitiligo Left foot pain Physical exam SALOMON (generalized anxiety disorder) Mild recurrent major depression Migraines GERD (gastroesophageal reflux disease) Asthma Cough Chronic allergic rhinitis Moderate persistent asthma Mixed hyperlipidemia Depression with anxiety Surgical History History of colonoscopy (~11/07/24) History of removal of cyst Family History Father CAD (coronary artery disease) Mother Chronic mental illness Stroke Paternal Grandmother Cancer Paternal Aunt Liver cancer Sister Multiple sclerosis Brother ALS (amyotrophic lateral sclerosis) Sister Schizophrenia Family/Other FH: mental illness Social History Household Members: None Housing: Apartment Alcohol intake: never Patient Tobacco Use Status: Never used Tobacco e-Cigarette/Vaping Use: Never Used Second Hand Smoke Exposure: No service: No Current occupational status: unemployed Sexual orientation: Straight/Heterosexual Gender identity: Female Cognitive needs: No Hearing needs: No Vision needs: Yes Female Reproductive History Menstrual Age of Menarche: 11 Review of Systems Const All systems reviewed & are unremarkable except as noted in HPI and below Physical Exam Const General: cooperative, comfortable, no acute distress, well developed, alert and awake Orientation/consciousness: patient oriented x3 Limitations: language barrier HEENT Head: Yes normal to inspection, Yes normocephalic and Yes atraumatic Ears: hearing grossly normal bilaterally Eyes General: appearance normal, both eyes and all related structures Neck Neck: Yes normal visual inspection and Yes trachea midline Chest Chest palpation & inspection: normal inspection of the chest Resp Effort & Inspection: normal respiratory effort and able to speak in complete sentences Cardio Rate: regular rate GI Inspection: Yes normal to inspection General: Yes no CVA tenderness Back/Spine/Pelvis Back: no CVA tenderness Skin General skin exam: no rashes or lesions noted Neuro General: patient oriented x3 Extrem General: Yes normal to inspection Psych Appearance: grossly normal and well kempt Mental Status: mental status grossly normal Speech and movement: Normal speech and movement present and Clear speech present Affect: normal affect Attitude: cooperative Thought process: Normal thought process present Thought content: Normal thought content present Insight: Fair insight present (Psych) Judgement: Fair judgement present (Psych) Assessment & Plan Assessment & Plan (1) Nocturia: Code(s): R35.1 - Nocturia Category: Medical (2) Urinary frequency: Code(s): R35.0 - Frequency of micturition Category: Medical (3) Stress incontinence: Code(s): N39.3 - Stress incontinence (female) (male) Category: Medical (4) Microscopic hematuria: Code(s): R31.29 - Other microscopic hematuria Category: Medical Plan In office urinalysis results reviewed with the patient today; as noted above; will send for urine cytology. PVR 0 mL. Will obtain retroperitoneal ultrasound for further assessment evaluation. Will obtain home sleep study for further assessment evaluation. We did discussed further treatment options of lower urinary tract symptoms as well as risks and benefits of these treatment options. All questions were answered. We discussed bladder triggers and irritants. Follow-up in 3 months with PVR, imaging, and sleep study; or sooner with any issues, concerns, and or questions. Orders: Orders RT home sleep study Today R06.83 - Snoring, R35.1 - Nocturia US retroperitoneal comp Today N39.3 - Stress incontinence (female) (male), R35.0 - Frequency of micturition, R35.1 - Nocturia Urine Cytology Today R31.29 - Other microscopic hematuria Patient Instructions: The patient had an opportunity to ask questions regarding the treatment plan. All questions were answered. Physical exam, labs, and imaging were discussed and reviewed in detail. As well as risks, benefits, and discussion of treatment choices. No major barriers to understanding were identified. The patient expressed understanding and agreement with the above treatment plan. The patient was made aware they should contact our office by phone for worsening of their current condition, the appearance of new symptoms, or with any questions or concerns. Compliance is encouraged with any medications and follow up testing that is ordered. It is a privilege to be allowed the opportunity to participate in? your urological care.? Again, if you have any questions or concerns If you have any questions or concerns please do not hesitate to contact me. The office is [phone]. This note is constructed using voice recognition software. While every effort has been made to ensure accuracy museum docent errors may have been included. Yours sincerely, LIZBETH Mims Coding Level of Care Code New Pt Level 3 (10441) Diagnoses Nocturia R35.1 Urinary frequency R35.0 Stress incontinence N39.3 Microscopic hematuria R31.29
== END 2025-04-01 14:02 | disposition home or self-care (01) ==
LOC: HO.HUSH 12:43
PROVIDERS: PCP Internal Medicine; Visit Provider Nurse Practitioner Family
DX: R35.1 Nocturia (principal); R35.0 Frequency of micturition; N39.3 Stress incontinence (female) (male); R31.29 Other microscopic hematuria; Z13.9 Encounter for screening, unspecified
CPT/HCPCS: 99203

== ENCOUNTER 2025-04-30 11:47 | Outpatient (AMB) | payer OTHER, SELFPAY ==
--- NOTE | 2025-04-30 11:51 | A.OFFVIS_ITS ---
Vital Signs 04/30/25 11:52 Height 5 ft 8 in Intake Visit Reasons: 6 mnts Allergies hydroxyzine (HYDROXYZINE) Allergy (Intermediate, Verified 04/30/25 12:19) THROAT TIGHT , dry mouth Penicillins (PENICILLINS) Allergy (Intermediate, Verified 04/30/25 12:19) RASH pollen extracts (POLLEN) Allergy (Intermediate, Verified 04/30/25 12:19) THROAT GETS ITCHY tramadol Allergy (Intermediate, Verified 04/30/25 12:19) sleepiness Medication List - Last Reconciled 04/30/25 by Babs Sanchez CNP alcohol swabs (Alcohol Pads) 1 pad topical TID amitriptyline 100 mg PO BEDTIME aripiprazole 10 mg PO DAILY blood sugar diagnostic (Accu-Chek Guide test strips) As directed blood-glucose meter (Accu-Chek Guide Glucose Meter) As directed budesonide-formoterol 160-4.5 mcg/actuation 2 puffs inhalation BID buspirone 15 mg PO TID cholecalciferol (vitamin D3) 1,250 mcg PO QWEEK 90 days dupilumab (Dupixent) 200 mg (1.14 mL) subcut Q2W 4 weeks escitalopram oxalate mg PO DAILY [Free style test strips As directed] incontinence pad, liner, disp As directed lancets (Accu-Chek Fastclix Lancet Drum) As directed lancing device with lancets (Accu-Chek FastClix Lancing Device kit) As directed latex gloves (Latex Gloves, Large) As directed metformin 500 mg PO DAILY rosuvastatin 10 mg PO DAILY 90 days sennosides (Natural Senna Laxative) 17.2 mg (2 x 8.6 mg) PO BEDTIME sumatriptan succinate mg PO underpads (Bed Underpads) As directed HPI Comments Details: She was doing okay. She was having few more headaches over the summer, especially when in [place] triggered by humidity and certain foods. Headaches were getting better now. Getting about 1-2 migraines/week, sometimes with visual aura lasting about 30 minutes. Migraines triggered by weather changes, humidity, bright lights, perfumes, and certain foods. Migraines worse in the summer with heat and humidity. Taking sumatriptan 50mg as needed which helps. Had COVID in 07/2023 and headaches increased. Had visual aura in 08/2023 with flashing lights, blurring, and then RUE numbness. Has generalized muscle pain with pain in arms, shoulders, and back, depression, anxiety. Hx of numbness in BUE and hands, lasting up to 20 minutes with dizziness and nausea at times. Back pain radiating around waist and in both lower extremities since 2011. [facility] Medical History (Updated 04/30/25 @ 11:54 by Babs Sanchez CNP) Fibromyalgia Hyperlipidemia LDL goal <70 New onset type 2 diabetes mellitus History of mammogram (~06/08/24) Tinnitus Tubular adenoma of colon Vitiligo Left foot pain Physical exam SALOMON (generalized anxiety disorder) Mild recurrent major depression Migraines GERD (gastroesophageal reflux disease) Asthma Cough Chronic allergic rhinitis Moderate persistent asthma Mixed hyperlipidemia Depression with anxiety Surgical History History of colonoscopy (~11/07/24) History of removal of cyst Family History Father CAD (coronary artery disease) Mother Chronic mental illness Stroke Paternal Grandmother Cancer Paternal Aunt Liver cancer Sister Multiple sclerosis Brother ALS (amyotrophic lateral sclerosis) Sister Schizophrenia Family/Other FH: mental illness Social History Household Members: None Housing: Apartment Alcohol intake: never Patient Tobacco Use Status: Never used Tobacco e-Cigarette/Vaping Use: Never Used Second Hand Smoke Exposure: No service: No Current occupational status: unemployed Sexual orientation: Straight/Heterosexual Gender identity: Female Cognitive needs: No Hearing needs: No Vision needs: Yes Female Reproductive History Menstrual Age of Menarche: 11 Review of Systems Const Denies chills, Denies daytime sleepiness, Denies difficulty sleeping, Denies fatigue, Denies fever(s), Denies frequent falls, Reports headache(s), Denies increased appetite, Denies poor appetite, Denies snoring, Denies weakness, Denies weight gain and Denies weight loss Eyes Denies loss of vision ENT Denies vertigo, Denies dizziness, Reports headache(s) and Reports neck pain Card Denies chest pain at rest, Denies chest pain with activity, Denies syncope, Denies leg edema, Denies palpitations, Denies dyspnea and Denies dyspnea on exertion Resp Denies cough, Denies dyspnea, Denies dyspnea on exertion and Denies snoring GI Denies abdominal pain, Denies constipation, Denies heartburn, Denies diarrhea and Denies nausea Denies urinary frequency, Denies urinary incontinence and Denies urinary urgency Musc Denies abnormal gait, Reports back pain, Reports myalgias, Denies arthralgias, Reports neck pain, Denies numbness and Denies tingling Neuro Denies abnormal gait, Denies vertigo, Denies dizziness, Denies syncope, Denies frequent falls, Reports headache(s), Denies lack of coordination, Denies loss of vision, Denies memory loss, Denies numbness, Denies Other visual disturbances, Denies restless legs, Denies seizure-like activity, Denies tingling, Denies paresthesias, Denies tremor(s) and Denies weakness Psych Denies anxiety, Reports depression, Denies auditory hallucinations, Denies memory loss and Denies visual hallucinations Endo Denies fatigue and Denies palpitations Physical Exam Const Other: General Appearance:? normal, in no acute distress. Heart:? S1, S2 normal, no murmurs. Lungs:? clear anteriorly and posteriorly. Musculoskeletal:? normal. Extremities:? no edema. Psych:? alert, oriented, cognitive function intact, cooperative with exam. Neuro Other: Abnormal Neurological Findings:?none.? Mental Status: alert and oriented X 3. Normal attention, orientation, memory, and affect. Cranial Nerves: Pupils are equal, round, and reactive to light. External ocular muscles are intact. Visual baker are full, no ptosis. Face is symmetrical, no facial weakness or droop. Facial sensations are normal. Tongue protrudes in m idline. Palate elevates symmetrically. Shoulder shrugging is normal Motor Examination: Normal muscle tone, bulk and strength. No atrophy or fasciculations. No drift of the extended upper extremities. DTR 2+. Plantars are flexor. Straight Leg Raisin degrees. Sensory Exam: Normal light touch, temperature, pinprick, vibration, and joint- position sensations. Rhomberg sign is absent. Coordination: No ataxia. No titubation. Mwwjnm-[id number], zkdv-gvkj-ryrx test, and rapid alternating movements were normal. Gait Exam: Within normal limits. Cerebellar Signs: Gwpmxv-xu-jyzt and othk-pp-rpep is normal. No dysdiadochokinesia. Extrapyramidal System: No tremor, rigidity with normal facial expressions. No bradykinesia. No bradyphrenia. Normal arm swing and posture. No propulsion or retropulsion. Speech: Normal. No dysphasia or dysarthria. Assessment & Plan Assessment & Plan (1) Migraines: Code(s): G43.909 - Migraine, unspecified, not intractable, without status migrainosus Category: Medical Qualifiers: Migraine type: without aura Status migrainosus presence: without status migrainosus Intractability: not intractable Qualified Code(s): G43.009 - Migraine without aura, not intractable, without status migrainosus Plan: Continue sumatriptan 50mg 1 tablet as needed for migraine. (2) Fibromyalgia: Code(s): M79.7 - Fibromyalgia Category: Medical Plan . Medications: New sumatriptan succinate take 1 tab at onset of headache; if no relief may repeat 1 tab after at least 2 hrs; PO 10 tabs 5RF 30 days Discontinued sumatriptan succinate Discontinued Reason: Order PO Coding Level of Care Code Est Pt Level 3 (95612) Diagnoses Migraine without aura and without status migrainosus, not intractable G43.009 Migraine type: without aura Status migrainosus presence: without status migrainosus Intractability: not intractable Fibromyalgia M79.7
== END 2025-04-30 12:28 | disposition home or self-care (01) ==
LOC: HO.HSM 11:47
PROVIDERS: PCP Internal Medicine; Referring Provider Internal Medicine; Visit Provider Registered Nurse
DX: G43.009 Migraine without aura, not intractable, without status migrainosus (principal); M79.7 Fibromyalgia
CPT/HCPCS: 99213

== ENCOUNTER → 2025-04-30 11:47 | Outpatient (BNVA) | payer OTHER, SELFPAY | PROVIDERS: PCP Internal Medicine; Referring Provider Internal Medicine; Visit Provider Registered Nurse | DX: G43.909 Migraine, unspecified, not intractable, without status migrainosus (principal); M79.7 Fibromyalgia | CPT/HCPCS: 99212 ==

== ENCOUNTER 2025-05-16 08:41 | Outpatient (REF) | payer OTHER, SELFPAY ==
[2025-05-16 10:40] LABS: Alanine Aminotransferase 29 U/L (0-31); Albumin Level 4.5 g/dL (3.5-5.0); Alkaline Phosphatase 104 U/L (39-117); Anion Gap 12 (12-20); Aspartate Amino Transferase 26 U/L (5-31); Blood Urea Nitrogen 15 mg/dL (9-16); Calcium 9.3 mg/dL (8.4-10.2); Carbon Dioxide 29 mmol/L (22-29); Chloride 108 mmol/L (96-108); Cholesterol 165 mg/dL (<200); Estimated Glomerular Filt Rate > 60; HDL Cholesterol 45 mg/dL (>40); Potassium 4.5 mmol/L (3.3-5.1); Sodium 144 mmol/L (135-145); Total Protein 7.5 g/dL (6.5-8.0); Triglycerides 96 mg/dL (<150)
[2025-05-16 11:09] LABS: Microalbum/Creatinine Ratio Ur 8.6 ug/mg cr (<30)
== END 2025-05-16 08:42 | disposition home or self-care (01) ==
LOC: HO.LAB 08:41
PROVIDERS: PCP Internal Medicine; Referring Provider Hospitalist; Visit Provider Internal Medicine
DX: Z01.84 Encounter for antibody response examination (principal); E11.9 Type 2 diabetes mellitus without complications; J45.40 Moderate persistent asthma, uncomplicated; E55.9 Vitamin D deficiency, unspecified; E78.5 Hyperlipidemia, unspecified; R80.9 Proteinuria, unspecified
CPT/HCPCS: 36415; 80053; 80061; 82043; 82306; 82570; 86787

== ENCOUNTER 2025-05-21 11:43 | Outpatient (AMB) | payer OTHER, SELFPAY ==
--- NOTE | 2025-05-21 11:52 | MHC.OFFVIS ---
Vital Signs 05/21/25 11:59 Height 5 ft 8 in Weight 182 lb BMI 27.7 BP 124/74 Blood Pressure Location Rt brachial Position Sitting Pulse 64 Pulse Source Pulse Oximeter Pulse Oximetry (%) 96 Oxygen Delivery Method Room Air Intake Visit Reasons: Constipation Intake Note: Est pt for mgmt of [facility]. CC: C.O. bloating and constipation. Pt states that she did not have her senna for a week while she was in [place] on account of accidentally losing the medication. Creative Project Manager Required: Yes Creative Project Manager Services: Creative Project Manager Present Creative Project Manager Name: [id number] Information Interpreted: clinical only Accompanied by: Self / Same As Patient Allergies hydroxyzine (HYDROXYZINE) Allergy (Intermediate, Verified 04/30/25 12:19) THROAT TIGHT , dry mouth Penicillins (PENICILLINS) Allergy (Intermediate, Verified 04/30/25 12:19) RASH pollen extracts (POLLEN) Allergy (Intermediate, Verified 04/30/25 12:19) THROAT GETS ITCHY tramadol Allergy (Intermediate, Verified 04/30/25 12:19) sleepiness HPI HPI Constipation: Details: LAST VISIT Tubular adenoma of colon Status post colonoscopy Diverticulosis Constipation Plan Colonoscopy in 5 years due to 1 tubular adenoma found, sooner if clinically necessary. Patient reports constipation and occasional burning in her rectum without pain. Internal hemorrhoids found. Patient will start taking Senokot 2 tablets daily and she can use Proctosol as needed. Patient was instructed to do Sitz baths with Epsom salts if needed. Increase fluid intake and activity to promote better bowel motility. Patient will return in 6 months, sooner on as needed basis. Patient is agreeable to current plan of care and verbalizes understanding of instructions. She was given the opportunity to ask questions and all questions answered. ? Thank you for allowing me to participate in her care New sennosides (Natural Senna Laxative) 17.2 mg (2 x 8.6 mg) PO BEDTIME 60 tabs 3RF constipation K59.00 hydrocortisone 2.5% (Proctosol HC) 1 appl MA BID-QID PRN 30 grams 2RF hemorrhoids K64.9 TODAY'S VISIT Patient is here today for follow-up. Patient reports that she has been doing fairly well, however she went to [place] and lost Senokot and will need a refill. Patient reports that medication was helping her. She states that when she was taking it she was able to have a bowel movement. Patient denies melena, hematochezia, unintentional weight loss or ribbon like stools. Patient reports that otherwise she has been feeling well and denies any GI concerning symptoms. Patient denies any dyspepsia, dysphagia or odynophagia. Denies any acid reflux. [facility] Medical History Fibromyalgia Hyperlipidemia LDL goal <70 New onset type 2 diabetes mellitus History of mammogram (~06/08/24) Tinnitus Tubular adenoma of colon Vitiligo Left foot pain Physical exam SALOMON (generalized anxiety disorder) Mild recurrent major depression Migraines GERD (gastroesophageal reflux disease) Asthma Cough Chronic allergic rhinitis Moderate persistent asthma Mixed hyperlipidemia Depression with anxiety Surgical History History of colonoscopy (~11/07/24) History of removal of cyst Family History Father CAD (coronary artery disease) Mother Chronic mental illness Stroke Paternal Grandmother Cancer Paternal Aunt Liver cancer Sister Multiple sclerosis Brother ALS (amyotrophic lateral sclerosis) Sister Schizophrenia Family/Other FH: mental illness Social History Household Members: None Housing: Apartment Alcohol intake: never Patient Tobacco Use Status: Never used Tobacco e-Cigarette/Vaping Use: Never Used Second Hand Smoke Exposure: No service: No Current occupational status: unemployed Sexual orientation: Straight/Heterosexual Gender identity: Female Cognitive needs: No Hearing needs: No Vision needs: Yes Female Reproductive History Menstrual Age of Menarche: 11 Review of Systems Const Denies weight gain and Denies weight loss ENT Reports no additional complaints, Denies dysphagia and Denies odynophagia Card Reports no additional complaints Resp Reports no additional complaints GI Denies abdominal pain, Denies belching, Denies melena, Denies bloating, Denies change in bowel habits, Reports constipation, Denies dysphagia, Denies excessive flatus, Denies dyspepsia, Denies heartburn, Denies diarrhea, Denies loose stools, Denies nausea, Denies odynophagia and Denies vomiting Reports no additional complaints Musc Reports no additional complaints Neuro Reports no additional complaints Psych Reports no additional complaints Endo Reports no additional complaints Physical Exam Vital Signs: Last Vital Signs Pulse 64 05/21/25 11:59 BP 124/74 05/21/25 11:59 Pulse Ox 96 05/21/25 11:59 Oxygen Delivery Method Room Air 05/21/25 11:59 BMI result Body Mass Index 27.7 Const General: healthy appearing and no acute distress Nutritional Appearance: obese Orientation/consciousness: patient oriented x3 Resp Effort & Inspection: normal respiratory effort, able to speak in complete sentences, no tracheal deviation and symmetric chest movement Auscultation: clear to auscultation bilaterally Cardio Rate: regular rate GI Inspection: Yes normal to inspection, No distended and Yes obesity Palpation (GI): Soft to palpation, not firm, nontender and No hepatosplenomegaly present Auscultation: normal bowel sounds General: Yes no CVA tenderness Back/Spine/Pelvis Back: no CVA tenderness Skin General skin exam: elasticity normal, turgor normal and dry skin Neuro General: patient oriented x3 Psych Appearance: grossly normal Mental Status: mental status grossly normal Assessment & Plan Assessment & Plan (1) Constipation: Code(s): K59.00 - Constipation, unspecified Qualifiers: Constipation type: slow transit constipation Qualified Code(s): K59.01 - Slow transit constipation (2) GERD (gastroesophageal reflux disease): Code(s): K21.9 - Gastro-esophageal reflux disease without esophagitis Category: Medical Qualifiers: Esophagitis presence: with esophagitis Esophagitis bleeding: without hemorrhage Qualified Code(s): K21.00 - Gastro-esophageal reflux disease with esophagitis, without bleeding Plan Patient was encouraged to increase fluid intake and activity to promote better bowel motility. List of food high in fiber given to her. May take [id number] fiber with pre and probiotics. Senokot refilled. Take it as needed if no bowel movement in 1-2 days. Patient reports that her acid reflux is controlled with food. Occasional acid reflux when eating pizza. Avoid dietary triggers and late night snacking. Staying upright for minimum 3 hours after meals discussed with patient. Patient will follow-up in our office in 6 months, sooner on as needed basis. She is agreeable to this plan and verbalizes understanding of instructions. She was given the opportunity to ask questions and all questions answered. Thank you for allowing me to participate in her care Medications: Refilled sennosides (Natural Senna Laxative) 17.2 mg (2 x 8.6 mg) PO BEDTIME 180 tabs 3RF constipation K59.00 - Constipation, unspecified Coding Level of Care Code Est Pt Level 3 (48474) Diagnoses Slow transit constipation K59.01 Constipation type: slow transit constipation Gastroesophageal reflux disease with esophagitis without hemorrhage K21.00 Esophagitis presence: with esophagitis Esophagitis bleeding: without hemorrhage Time Spent (min) 25 Comment 15 minutes spent with patient and additional 10 minutes spent reviewing her records
[2025-05-21 11:59] VITALS: BP 124/74; PULSE 64; O2SAT 96; BMI 27.7
== END 2025-05-21 12:23 | disposition home or self-care (01) ==
LOC: HO.HGI 11:44
PROVIDERS: PCP Internal Medicine; Visit Provider Nurse Practitioner Family
DX: K59.01 Slow transit constipation (principal); K21.00 Gastro-esophageal reflux disease with esophagitis, without bleeding
CPT/HCPCS: 99213

== ENCOUNTER → 2025-05-21 11:43 | Outpatient (BNVA) | payer OTHER, SELFPAY | PROVIDERS: PCP Internal Medicine; Visit Provider Nurse Practitioner Family | DX: K59.01 Slow transit constipation (principal); K21.00 Gastro-esophageal reflux disease with esophagitis, without bleeding | CPT/HCPCS: 99212 ==

== ENCOUNTER 2025-06-06 13:17 | Outpatient (AMB) | payer OTHER, SELFPAY ==
[2025-06-06 13:19] VITALS: BP 124/76; PULSE 72; O2SAT 98; BMI 27.8
--- NOTE | 2025-06-06 13:19 | A.OFFPC_ITS ---
Vital Signs 06/06/25 13:19 Height 5 ft 8 in Weight 183 lb BMI 27.8 BP 124/76 Blood Pressure Location Lt brachial Position Sitting Pulse 72 Pulse Source Pulse Oximeter Pulse Oximetry (%) 98 Oxygen Delivery Method Room Air Intake Visit Reasons: glucose Railroad Switchman Required: No Accompanied by: Self / Same As Patient Allergies hydroxyzine (HYDROXYZINE) Allergy (Intermediate, Verified 06/06/25 13:30) THROAT TIGHT , dry mouth Penicillins (PENICILLINS) Allergy (Intermediate, Verified 06/06/25 13:30) RASH pollen extracts (POLLEN) Allergy (Intermediate, Verified 06/06/25 13:30) THROAT GETS ITCHY tramadol Allergy (Intermediate, Verified 06/06/25 13:30) sleepiness Medication List - Last Reconciled 06/06/25 by Alejandra Spicer MD alcohol swabs (Alcohol Pads) 1 pad topical TID amitriptyline 100 mg PO BEDTIME aripiprazole 2.5 mg PO DAILY blood sugar diagnostic (Accu-Chek Guide test strips) As directed blood-glucose meter (Accu-Chek Guide Glucose Meter) As directed budesonide-formoterol 160-4.5 mcg/actuation 2 puffs inhalation BID buspirone 15 mg PO TID cholecalciferol (vitamin D3) 1,250 mcg PO QWEEK 90 days dupilumab (Dupixent) 200 mg (1.14 mL) subcut Q2W 4 weeks escitalopram oxalate mg PO DAILY [Free style test strips As directed] incontinence pad, liner, disp As directed lancets (Accu-Chek Fastclix Lancet Drum) As directed lancing device with lancets (Accu-Chek FastClix Lancing Device kit) As directed latex gloves (Latex Gloves, Large) As directed metformin 500 mg PO DAILY rosuvastatin 10 mg PO DAILY 90 days sennosides (Natural Senna Laxative) 17.2 mg (2 x 8.6 mg) PO BEDTIME sumatriptan succinate take 1 tab at onset of headache; if no relief may repeat 1 tab after at least 2 hrs; PO 30 days underpads (Bed Underpads) As directed Tobacco use date assessed: 06/06/25 Dental Screening Dental Screen Date: 12/14/24 HPI HPI Comments History of Present Illness Details The patient is a 59-year-old female presenting for follow-up on diabetes management and other chronic conditions. She has a history of diabetes mellitus, currently managed with metformin 500 mg once daily. Her recent laboratory results show an improvement in HbA1c from 6.5% to 6.0%, indicating better glycemic control. The patient also has hyperlipidemia, previously with an LDL cholesterol level of 160 mg/dL, which has decreased to 101 mg/dL with rosuvastatin 10 mg. The goal is to further reduce LDL to 70 mg/dL, and an increase in rosuvastatin to 20 mg is planned. She experiences migraines, for which she takes amitriptyline 100 mg at night and sumatriptan as needed. A neurology appointment is scheduled for further evaluation. The patient reports mild to moderate depression, with a PHQ-9 score of 11, and is under psychiatric care with Abilify 2.5 mg. She has a history of macromastia, causing discomfort, and is considering plastic surgery for reduction. She complains of thoracic spine pain and does have katalina ast indentation due to macromastia. Recently, she developed a rash between her breasts, which resolved after three days. The patient has allergies to hydroxyzine, penicillin, pollen, and tramadol. Preventative care includes a recent colonoscopy and an upcoming mammography. FOR[facility], [facility] Medical History (Updated 06/06/25 @ 14:11 by Alejandra Spicer MD) Fibromyalgia Hyperlipidemia LDL goal <70 New onset type 2 diabetes mellitus History of mammogram (~06/08/24) Tinnitus Tubular adenoma of colon Vitiligo Left foot pain Physical exam SALOMON (generalized anxiety disorder) Mild recurrent major depression Migraines GERD (gastroesophageal reflux disease) Asthma Cough Chronic allergic rhinitis Moderate persistent asthma Mixed hyperlipidemia Depression with anxiety Surgical History History of colonoscopy (~11/07/24) History of removal of cyst Family History Father CAD (coronary artery disease) Mother Chronic mental illness Stroke Paternal Grandmother Cancer Paternal Aunt Liver cancer Sister Multiple sclerosis Brother ALS (amyotrophic lateral sclerosis) Sister Schizophrenia Family/Other FH: mental illness Social History Household Members: None Housing: Apartment Alcohol intake: never Patient Tobacco Use Status: Never used Tobacco Tobacco use type: Cigarette e-Cigarette/Vaping Use: Never Used Second Hand Smoke Exposure: No service: No Current occupational status: unemployed Sexual orientation: Straight/Heterosexual Gender identity: Female Cognitive needs: No Hearing needs: No Vision needs: Yes Female Reproductive History Menstrual Age of Menarche: 11 Questionnaire PHQ-9 Over the last 2 weeks, how often have you been bothered by any of the following problems? 1. Little interest or pleasure in doing things: not at all 2. Feeling down, depressed, or hopeless: more than half the days 3. Trouble falling or staying asleep, or sleeping too much: more than half the days 4. Feeling tired or having little energy: more than half the days 5. Poor appetite or overeating: more than half the days 6. Feeling bad about yourself - or that you are a failure or have let yourself or your family down: several days 7. Trouble concentrating on things, such as reading the newspaper or watching television: several days 8. Moving or speaking so slowly that other people could have noticed. Or the opposite - being so fidgety or restless that you have been moving around a lot more than usual: several days 9. Thoughts that you would be better off or of hurting yourself in some way: not at all Total score: 11 Depression Screening Interpretation: Positive Depression Screening Follow-up: Existing condition, In treatment, Community Mental Health Worker F/U and Follow- up Visit Requested Depression Screening Done: Yes [id number] - PHQ-9 Billing: Yes Source: Developed by Drs. Kayden Eldridge, Chelsy Julian, Cholo Garcia and colleagues, with an educational jeannie from [employer]. Thrive Questionnaire Date Thrive assessed: 01/16/25 I am a: Patient What is your living situation today?: I have a steady place to live Within the past 12 months, did the food you bought not last and you didn't have the money to get more?: Never true Within the past 12 months, did you worry whether your food would run out before you got money to buy more?: Sometimes True Do you have trouble paying for medicines?: No Do you have trouble getting transportation to medical appointments?: No Do you have trouble paying your heating and electricity bill?: Yes Do you have trouble taking care of your child, family member or friend?: No Do you have trouble with day-to-day activities such as bathing, preparing meals, shopping, managing finances, etc.?: No Are you currently unemployed and looking for a job?: No Are you interested in more education?: No Please select the resources that you would like help with: None Currently or been in a relationship where the following occur: I choose not to answer THRIVE Score: 2 AUDIT C Alcohol Use Questionnaire (AUDIT-C) 1. How often do you have a drink containing alcohol?: Never 3. How often do you have six or more drinks on one occasion?: Never Total Score: 0 Score Reviewed/Action Taken: No SALOMON-7 AMB Questionnaire SALOMON-7 Date SALOMON - 7 assessed: 01/16/25 Source: Developed by Drs. Kayden Eldridge, Chelsy Julian, Cholo Garcia and colleagues, with an educational jeannie from [employer]. Review of Systems Const All systems reviewed & are unremarkable except as noted in HPI and below Card Denies chest pain at rest, Denies chest pain with activity, Denies edema, Denies irregular heart rhythm, Denies claudication, Denies dyspnea, Denies dyspnea on exertion, Denies orthopnea, Denies paroxysmal nocturnal dyspnea and Denies slow heart rate Resp Denies cough, Denies dyspnea and Denies dyspnea on exertion GI Denies abdominal pain, Denies change in bowel habits, Denies excessive flatus, Denies nausea and Denies vomiting Denies urinary incontinence, Denies urinary hesitancy and Denies urinary urgency Musc Denies atrophy, Denies deformity and Denies limited range of motion Physical exam (Primary Care) Vital Signs: Last Vital Signs Pulse 72 06/06/25 13:19 BP 124/76 06/06/25 13:19 Pulse Ox 98 06/06/25 13:19 Oxygen Delivery Method Room Air 06/06/25 13:19 BMI result Body Mass Index 27.8 Tobacco/Smoking Status: Tobacco use Status Tobacco use date assessed 06/06/25 06/06/25 13:21 Patient Tobacco Use Status Never used Tobacco 06/06/25 13:21 Tobacco use type Cigarette 06/06/25 13:21 e-Cigarette/Vaping Use Never Used 06/06/25 13:21 PHQ-9: PHQ-9 Score PHQ-9: Total score 11 06/06/25 13:21 Depression Screening Interpretation: Positive Depression Screening Follow-up: Existing condition, In treatment, Community Mental Health Worker F/U and Follow- up Visit Requested Thrive Assessment: Date of Thrive Assessment Date Thrive assessed 01/16/25 06/06/25 13:21 Currently or been in a relationship where the following occur: I choose not to answer Resp Effort & Inspection: normal respiratory effort Auscultation: clear to auscultation bilaterally Cardio Jugular venous distension: no JVD Rate: regular rate Rhythm: regular rhythm Heart sounds: S1 normal heart sound present and S2 normal heart sound present Extrem General: Yes full ROM Results AMB Hemoglobin A1c AMB Hemoglobin A1c 6.0 % Last Edit by Tawnya Robles CMA on 06/06/25 13 :31 Coding Level of Care Code Est Pt Level 4 (93174) Complex EM visit Add On G2211 Diagnoses Mild recurrent major depression F33.0 Hyperlipidemia LDL goal <70 E78.5 Diabetes mellitus E11.9 Migraine without aura and without status migrainosus, not intractable G43.009 Migraine type: without aura Status migrainosus presence: without status migrainosus Intractability: not intractable Macromastia N62 Additional Codes PHQ-9 - 54296 - PHQ-9 Billing: Yes ([id number]) Time Spent (min) 23 Assessment & Plan Assessment & Plan (1) Mild recurrent major depression: Code(s): F33.0 - Major depressive disorder, recurrent, mild Category: Medical (2) Hyperlipidemia LDL goal <70: Code(s): E78.5 - Hyperlipidemia, unspecified Category: Medical (3) Diabetes mellitus: Code(s): E11.9 - Type 2 diabetes mellitus without complications Category: Medical (4) Migraines: Code(s): G43.909 - Migraine, unspecified, not intractable, without status migrainosus Category: Medical Qualifiers: Migraine type: without aura Status migrainosus presence: without status migrainosus Intractability: not intractable Qualified Code(s): G43.009 - Rios jase without aura, not intractable, without status migrainosus (5) Macromastia: Code(s): N62 - Hypertrophy of breast Category: Medical Plan Plan Patient was informed and verbally consented to the use of an ambient scribe for clinic note documentation during this visit. 1. Type 2 diabetes mellitus without complications E11.9 HCC 19 The patient's diabetes is currently managed with metformin 500 mg once daily, and recent lab results show improved glycemic control with an HbA1c of 6.0%. Continued monitoring of blood glucose levels is recommended, with follow-up appointments to assess management efficacy. 2. Hyperlipidemia, unspecified E78.5 The patient's LDL cholesterol has decreased to 101 mg/dL with rosuvastatin 10 mg, but the target is 70 mg/dL. An increase in rosuvastatin to 20 mg is planned, with a follow-up lipid panel in four months to evaluate progress. 3. Migraine, unspecified, not intractable, without status migrainosus G43.909 The patient manages migraines with amitriptyline 100 mg at night and sumatriptan as needed. A neurology consultation is scheduled for further evaluation and management. 4. Depression, unspecified F32.A The patient reports mild to moderate depression with a PHQ-9 score of 11 and is currently under psychiatric care with Abilify 2.5 mg. Continued psychiatric follow-up is advised to monitor and adjust treatment as necessary. 5. Hypertrophy of breast N62 The patient experiences discomfort due to macromastia and is considering plastic surgery for reduction. A referral to plastic surgery has been made for further evaluation and potential intervention. Orders: Orders AMB Hemoglobin A1c Today Z13.9 - Encounter for screening, unspecified Lipid Panel 4 Months E78.5 - Hyperlipidemia, unspecified Microalbumin, Random (w Creat) 4 Months R80.9 - Proteinuria, unspecified Vitamin D 25-OH Total 4 Months E55.9 - Vitamin D deficiency, unspecified Comprehensive [place]. Panel Fast 4 Months E11.9 - Type 2 diabetes mellitus without complications Referrals Plastic Surgery Referral N62 - Hypertrophy of breast Medications: New rosuvastatin 20 mg PO BEDTIME 90 tabs 1RF 90 days Discontinued rosuvastatin Discontinued Reason: Patient Completed Course 10 mg PO DAILY 90 days 90 tabs 0RF
== END 2025-06-06 13:47 | disposition home or self-care (01) ==
LOC: HO.HMCH 13:18
PROVIDERS: PCP Internal Medicine; Visit Provider Internal Medicine
DX: F33.0 Major depressive disorder, recurrent, mild (principal); E78.5 Hyperlipidemia, unspecified; E11.9 Type 2 diabetes mellitus without complications; G43.009 Migraine without aura, not intractable, without status migrainosus; N62 Hypertrophy of breast; Z13.9 Encounter for screening, unspecified

== ENCOUNTER → 2025-06-06 13:17 | Outpatient (BNVA) | payer OTHER, SELFPAY | PROVIDERS: PCP Internal Medicine; Visit Provider Internal Medicine | DX: E11.9 Type 2 diabetes mellitus without complications (principal); E78.5 Hyperlipidemia, unspecified; G43.909 Migraine, unspecified, not intractable, without status migrainosus; N62 Hypertrophy of breast; F33.0 Major depressive disorder, recurrent, mild; G43.009 Migraine without aura, not intractable, without status migrainosus; Z79.84 Long term (current) use of oral hypoglycemic drugs | CPT/HCPCS: 83036; 96127; 99212 ==

== ENCOUNTER 2025-06-11 11:51 | Outpatient (REF) | payer OTHER, SELFPAY | END 2025-06-11 11:52 | disposition home or self-care (01) | LOC: HO.MAMMO 11:51 | PROVIDERS: PCP Internal Medicine; Visit Provider Internal Medicine | DX: Z12.31 Encounter for screening mammogram for malignant neoplasm of breast (principal) | CPT/HCPCS: 77063; 77067 ==

== ENCOUNTER → 2025-06-11 12:00 | Outpatient (BNV) | payer OTHER, SELFPAY | PROVIDERS: PCP Internal Medicine; Visit Provider Internal Medicine | DX: Z12.31 Encounter for screening mammogram for malignant neoplasm of breast (principal) | CPT/HCPCS: 77063; 77067 ==

== ENCOUNTER 2025-06-21 12:32 | Emergency (ER) | payer OTHER, SELFPAY ==
--- NOTE | ~2025-06-21 | CT_ITS ---
EXAMINATION: CT HEAD WITHOUT CONTRAST CLINICAL INFORMATION: Fall, head trauma COMPARISON: None available. TECHNIQUE: Contiguous axial imaging was performed from the skull base to vertex without intravenous administration of contrast. This CT examination was performed using dose optimization techniques as appropriate, variously including the following: *Automated exposure control *Adjustment of mA and/or kV according to patient size (this includes techniques or standardized protocols for targeted exams where dose is matched to indication/reason for exam; i.e. extremities or head) *Use of iterative reconstruction technique DLP: 648 mGY*cm FINDINGS: There is no acute ischemic change. There is no intracranial hemorrhage. There is no mass-effect or midline shift. Basal cisterns and ventricles are within normal limits for age/cerebral volume. Orbits are symmetrical and unremarkable. There is partial opacification of ethmoid air cells and right greater than left sphenoid sinuses. Degenerative cystic changes present in the left mandibular head and marginal osteophyte is present involving the right CT/CT head/brain wo IV con IMPRESSION: No acute intracranial abnormality. Ethmoid and sphenoid sinusitis. 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 Electronically signed by: Adrian Rod MD 06/21/2025 01:26 PM EDT
--- NOTE | ~2025-06-21 | XR_ITS ---
EXAMINATION: XR HAND 3 OR MORE VIEWS RIGHT HISTORY: pain, injury COMPARISON: There are no prior studies available for comparison. FINDINGS: Three views of the right hand are submitted. Osseous mineralization is normal. There is no fracture or dislocation. There is narrowing of the joint space between the scaphoid and trapezium. The remaining joint spaces are maintained. The soft tissues are unremarkable. XR/XR hand RT min 3V IMPRESSION: No evidence of fracture of the right hand. Electronically signed by: Kayden Haji MD 06/21/2025 01:31 PM EDT
--- NOTE | ~2025-06-21 | XR_ITS ---
EXAMINATION: XR LUMBOSACRAL SPINE CLINICAL INFORMATION: pain, injury, fall COMPARISON: August 23, 2023 TECHNIQUE: Three views of the lumbosacral spine. FINDINGS: There are 5 nonrib-bearing lumbar segments with sacralization of L5 segment. It pseudoarticulation across the sacrum. There are sclerotic changes along the right pseudoarticulation. There is mild convex right curvature of the lumbar spine. Facet osteophytes are present at L4-5 and L5-S1. There is disc space narrowing and endplate osteophytes at L5-S1. XR/XR lumbar spine 2-3V IMPRESSION: No acute abnormality. Sacralized L5 segment with pseudoarticulation across the sacrum. Electronically signed by: Adrian Rod MD 06/21/2025 01:32 PM EDT
[2025-06-21 12:50] VITALS: BP 147/97; PULSE 80; RESP 16; TEMP 36.7; O2SAT 100; BMI 29.3
--- NOTE | 2025-06-21 12:52 | ED_ITS ---
HPI - General Adult General Chief complaint: Headache Stated complaint: Migraine Time Seen by Provider: 06/21/25 16:26 Source: patient, old records reviewed and spanish interpreter/translator Mode of arrival: ambulatory Limitations: no limitations History of Present Illness ED Provider: CHRIS CURTIS narrative: 59 yo female with PMH of DM, migraines, fibromyalgia, HLD, anxiety, depression, HLD, asthma, chronic back pain here with c/o fall 2 weeks ago did not seek medical care she c/o low back pain but no b/b incontinence and no saddle anesthesia. She denies IVDA and no thinners. She also has worsening frontal headache and sinus pain she feels inflammed. She took her anti inflammatory and sumatriptan but no relief. She denies fevers, she has no neck pain. She also reports R pink finger pain from fall MD complaint: back pain, headaches Onset (ago): week(s) (5 days) Location: head and back Radiation: non-radiation Severity: moderate Quality: aching Pain Consistency: constant Relieving factors: none Exacerbating factors: movement Associated symptoms: headaches Treatments prior to arrival: NSAID and other Related Data Home Medications ?Medication ?Instructions ?Recorded ?Confirmed buspirone 15 mg tablet 15 mg PO TID anxiety 4 06/06/25 escitalopram oxalate 20 mg tablet mg PO DAILY 11/21/24 06/06/25 amitriptyline 100 mg tablet 100 mg PO BEDTIME 04/24/25 06/06/25 aripiprazole 5 mg tablet 2.5 mg PO DAILY 06/06/25 Previous Rx's ?Medication ?Instructions ?Recorded incontinence pad, liner, disp #60 ea 11/17/23 latex gloves (Latex Gloves, Large) #24 ea 11/17/23 underpads (Bed Underpads) #100 ea 11/17/23 dupilumab 200 mg/1.14 mL 200 mg (1.14 mL) subcut Q2W 4 10/12/24 subcutaneous pen injector weeks #2.28 mL (Dupixent) budesonide-formoterol HFA 160 2 puff inhalation BID #1 0.2 grams 11/16/24 mcg-4.5 mcg/actuation aerosol inhaler alcohol swabs (Alcohol Pads) 1 pad topical TID #200 ea 12/14/24 blood sugar diagnostic (Accu-Chek #100 ea 12/14/24 Guide test strips) blood-glucose meter (Accu-Chek #1 ea 12/14/24 Guide Glucose Meter) lancets (Accu-Chek Fastclix Lancet #200 ea 12/14/24 Drum) lancing device with lancets kit #1 ea 12/14/24 (Accu-Chek FastClix Lancing Device kit) cholecalciferol (vitamin D3) 1,250 1,250 mcg PO QWEEK 90 days #13 caps 12/25/24 mcg (50,000 unit) capsule metformin 500 mg tablet 500 mg PO DAILY #90 tabs Free style test strips #1 ea 02/08/25 sumatriptan succinate 50 mg tablet See Rx Instructions PO .COMPLEX 30 04/30/25 days #10 tabs sennosides 8.6 mg tablet (Natural 17.2 mg (2 x 8.6 mg) PO BEDTIME 05/21/25 Senna Laxative) constipation #180 tabs rosuvastatin 20 mg tablet 20 mg PO BEDTIME 90 days #90 tabs 06/06/25 cyclobenzaprine 5 mg tablet 5 mg PO TID PRN muscle spa sm #30 06/21/25 tabs doxycycline hyclate 100 mg capsule 100 mg PO BID 7 day s #14 [facility] 06/21/25 hydrocodone 5 mg-acetaminophen 325 1 tab PO Q6H PRN pa in #10 tabs 06/21/25 mg tablet Allergies Allergy/AdvReac Type Severity Reaction Status Date / Time hydroxyzine (HYDROXYZINE) Allergy Intermediate THROAT Verified 06/21/25 12:57 TIGHT , dry mouth Penicillins (PENICILLINS) Allergy Intermediate RASH Verified 06/21/25 12:57 pollen extracts (POLLEN) Allergy Intermediate THROAT Verified 06/21/25 12:57 GETS ITCHY tramadol Allergy Intermediate sleepiness Verified 06/21/25 12:57 Review of Systems Review of Systems: Constitutional : No Weight loss, No Fever, No Chills, ENT/Mouth : No Hearing loss, No Ear Pain, No Nasal Congestion, No Sinus Pain, No Hoarseness, No sore throat, No Rhinorrhea, No Swallowing Difficulty Cardiovascular : No Chest Pain, No SOB Respiratory : No Cough, No Dyspnea Gastrointestinal : No Nausea, No Vomiting, No Diarrhea, No abdominal Pain, No Hematochezia, No Melena Genitourinary : No Dysuria, No Urinary Frequency, No Hematuria, No Urinary Incontinence, Musculoskeletal : positive back pain Skin : No Skin Lesions, No rash Neuro : No Weakness, No Numbness, No Paresthesias, no loss of bowel or bladder incontinence, no saddle anesthesia, pos back pain Yes all other systems are reviewed and are negative PMFSH Past Medical History Attestation statement: The following information was validated with the patient. Source: old records reviewed Medical History Fibromyalgia Hyperlipidemia LDL goal <70 New onset type 2 diabetes mellitus History of mammogram (~06/08/24) Tinnitus Tubular adenoma of colon Vitiligo Left foot pain Physical exam SALOMON (generalized anxiety disorder) Mild recurrent major depression Migraines GERD (gastroesophageal reflux disease) Asthma Cough Chronic allergic rhinitis Moderate persistent asthma Mixed hyperlipidemia Depression with anxiety Surgical History History of colonoscopy (~11/07/24) History of removal of cyst Family History Family History Father CAD (coronary artery disease) Mother Chronic mental illness Stroke Paternal Grandmother Cancer Paternal Aunt Liver cancer Sister Multiple sclerosis Brother ALS (amyotrophic lateral sclerosis) Sister Schizophrenia Family/Other FH: mental illness Social History Social History Household Members: None Housing: Apartment Alcohol intake: never Patient Tobacco Use Status: Never used Tobacco Tobacco use type: Cigarette e-Cigarette/Vaping Use: Never Used Second Hand Smoke Exposure: No Advance Directives: No Advance Directives Information Provided: No Do you have a plan to hurt others: No Plan service: No Current occupational status: unemployed Sexual orientation: Straight/Heterosexual Gender identity: Female Cognitive needs: No Hearing needs: No Vision needs: Yes Physical Exam ED Vital Signs: Vital Signs - 24 hr 06/21/25 12:50 Temperature 98.1 F Pulse Rate 80 Respiratory Rate 16 Blood Pressure 147/97 H Pulse Oximetry 100 Oxygen Delivery Method Room Air BMI result Body Mass Index 29.3 Appearance: Alert. Oriented X3. No acute distress. Eyes: Pupils equal, round and reactive to light. ENT: Pharynx normal. Neck: Normal inspection. Neck supple. no meningeal signs CVS: Normal heart rate and rhythm. Pulses normal. Respiratory: No respiratory distress. Breath sounds normal. Abdomen: Soft and nontender. Back: ttp along lower lumbar paraspinals Skin: Skin warm and dry. Normal skin color. Normal skin turgor. Extremities: No lower extremity edema. moves hand well no deformity doubt fracture Neuro: Oriented X 3. No motor deficit. No sensory deficit. CN2-12 intact Course Course Course Narrative: Rapid medical examination performed in triage by Heydi Harrison PA-C. Patient is a 59 year old assigned female at presenting to the emergency department with a headache, right 5th finger pain, and back pain after a fall. Patient states she fell 2 weeks ago and was never evaluated and is now having pain in several places. Detailed physical exam and review of systems are deferred to the pipe organ tuner and repairer. Imaging ordered. Patient placed back in the waiting room pending room availability and results. Medications Administered Discontinued Medications Generic Name Dose Route Start Last Admin Trade Name Freq PRN Reason Stop Dose Admin Hydrocodone Bitart/Acetaminophen 1 tab 06/21/25 16:36 06/21/25 16:48 Hydrocodone Bit/Acetam 5/325 Tablet PO 06/21/25 16:37 1 tab ONCE ONE Administration Cyclobenzaprine HCl 5 mg 06/21/25 16:36 06/21/25 16:54 Cyclobenzaprine Hcl 5 Mg Tablet PO 06/21/25 16:37 5 mg ONCE ONE Administration Doxycycline Monohydrate 100 mg 06/21/25 16:36 06/21/25 16:48 Doxycycline Monohydrate 100 Mg Capsule PO 06/21/25 16:37 100 mg ONCE ONE Administration Ondansetron HCl 4 mg 06/21/25 16:36 06/21/25 16:49 Ondansetron Odt 4 Mg Tab.Rapdis TRANSLINGU 06/21/25 16:37 4 mg ONCE ONE Administration Medical Decision Making Medical Decision Making [facility] Narrative: 59 yo female with PMH of DM, migraines, fibromyalgia, HLD, anxiety, depression, HLD, asthma, chronic back pain here with c/o gradual onset headache frontal occurred at rest and has worsened over many days but also feels her sinuses are inflammed. She is neuro intact and no meningeal signs. She also c/o low back pain but no cauda equina symptoms and no red flags on exam. Will obtain lumbar film, CT head for sinus pathology/mass anticipate PO pain control and abx. Differential Diagnosis Differential Diagnoses: The differential diagnosis associated with the presentation includes sprain, strain, tension headache, sinusitis Admission/Observation Consideration of admission/observation: Escalation of care including admission/observation considered feels better, stable for DC Lab Data MDM Lab Attestation statement: I reviewed the patient's lab results. Independent Interpretation I performed an independent interpretation of an: Plain X-Ray (no fracture) and CT Scan (sinusitis) Radiology Impression Discussion of test interpretation with radiology: I have reviewed the radiologist's reading. External Record Review External record reviewed: Outpatient record Prescription Management I considered prescription management with: Pain Medication and Antibiotic Discharge Plan Discharge Clinical Impression: Tension headache Sinusitis Qualifiers: Sinusitis location: ethmoidal Chronicity: acute Recurrence: non-recurrent Qualified Code(s): J01.20 - Acute ethmoidal sinusitis, unspecified Low back pain Qualifiers: Chronicity: acute Back pain laterality: bilateral Sciatica presence: without sciatica Qualified Code(s): M54.50 - Low back pain, unspecified Patient Disposition: Home, Self-Care Instructions: Sinusitis (ED), Tension Headache (ED), Acute Low Back Pain (ED) Additional Instructions: rest and stay hydrated no broken bones on xray or CT head there is sinus ds on CT scan take medications as prescribed return for worsening symptoms or any other concerns On doxycycline, do not take pills immediately before going to bed and swallow pills with plenty of water. Avoid direct sunlight, iron, antacids, and Pepto Bismol. Call your provider if you develop new ringing in your ears, new problems hearing, dizziness, difficulty swallowing, rash, abdominal discomfort, nausea, or diarrhea.? Prescriptions: New doxycycline hyclate 100 mg capsule 100 mg PO BID 7 Days Qty: 14 0RF cyclobenzaprine 5 mg tablet 5 mg PO TID PRN (Reason: muscle spasm) Qty: 30 0RF hydrocodone-acetaminophen 5-325 mg tablet 1 tab PO Q6H PRN (Reason: pain) Qty: 10 0RF Rx Instructions: partial fill okay; Partial Fill upon patient request. No Action Dupixent Pen 200 mg/1.14 mL pen injector 200 mg subcut Q2W 28 Days Qty: 2.28 11RF budesonide-formoterol 160-4.5 mcg/actuation HFA aerosol inhaler 2 puff inhalation BID Qty: 10.2 11RF cholecalciferol (vitamin D3) 1,250 mcg (50,000 unit) capsule 1,250 mcg PO QWEEK 90 Days Qty: 13 1RF metformin 500 mg tablet 500 mg PO DAILY Qty: 90 1RF (DME) Free style test strips See Rx Instructions .Route .MEDSUPPLY Qty: 1 3RF Rx Instructions: As directed (DME) underpads [Bed Underpads] Pad See Rx Instructions .Route Qty: 100 11RF Rx Instructions: As directed (DME) latex gloves [Latex Gloves, Large] Misc See Rx Instructions .Route Qty: 24 11RF Rx Instructions: As directed (DME) incontinence pad, liner, disp Pad See Rx Instructions .Route Qty: 60 11RF Rx Instructions: As directed escitalopram oxalate 20 mg tablet PO DAILY sennosides [Natural Senna Laxative] 8.6 mg tablet 17.2 mg PO BEDTIME Qty: 180 3RF aripiprazole 5 mg tablet 2.5 mg PO DAILY (DME) lancets [Accu-Chek Fastclix Lancet Drum] Misc See Rx Instructions .ROUTE .MEDSUPPLY Qty: 200 0RF Rx Instructions: As directed (DME) lancing device with lancets [Accu-Chek FastClix Lancing Dev] Kit See Rx Instructions .ROUTE .MEDSUPPLY Qty: 1 0RF Rx Instructions: As directed (DME) blood-glucose meter [Accu-Chek Guide Glucose Meter] Misc See Rx Instructions .ROUTE .MEDSUPPLY Qty: 1 0RF Rx Instructions: As directed (DME) Accu-Chek Guide test strips Strip See Rx Instructions .ROUTE .MEDSUPPLY Qty: 100 0RF Rx Instructions: As directed alcohol swabs [Alcohol Pads] Pads, Medicated 1 pad topical TID Qty: 200 1RF rosuvastatin 20 mg tablet 20 mg PO BEDTIME 90 Days Qty: 90 1RF amitriptyline 100 mg tablet 100 mg PO BEDTIME sumatriptan succinate 50 mg tablet See Rx Instructions PO .COMPLEX 30 Days Qty: 10 5RF Rx Instructions: take 1 tab at onset of headache; if no relief may repeat 1 tab after at least 2 hrs; PO buspirone 15 mg tablet 15 mg PO TID Print Language: Wallisian
[2025-06-21] MEDS: HYDROcodone Bit/Acetam 5/325 TABLET 1 TAB PO (16:48)
[2025-06-21 20:00] VITALS: BP 147/97; PULSE 80; RESP 16; TEMP 36.7; O2SAT 100
== END 2025-06-21 20:00 | disposition home or self-care (01) ==
PROVIDERS: Emergency Provider Emergency Medicine; PCP Internal Medicine
DX: J01.20 Acute ethmoidal sinusitis, unspecified (principal); R51.9 Headache, unspecified; M54.50 Low back pain, unspecified; M79.641 Pain in right hand; E11.9 Type 2 diabetes mellitus without complications; Z79.84 Long term (current) use of oral hypoglycemic drugs; Z79.899 Other long term (current) drug therapy
CPT/HCPCS: 70450; 72100; 73130; 96372; 99284; J1885; J2765

== ENCOUNTER → 2025-06-21 12:54 | Outpatient (BNV) | payer OTHER, SELFPAY | PROVIDERS: PCP Internal Medicine; Visit Provider Radiology Diagnostic Radiology | DX: S09.90XA Unspecified injury of head, initial encounter (principal); M54.50 Low back pain, unspecified; W19.XXXA Unspecified fall, initial encounter; M79.641 Pain in right hand | CPT/HCPCS: 70450; 72100; 73130 ==

== ENCOUNTER → 2025-07-02 13:48 | Outpatient (REF) | payer OTHER, SELFPAY | LOC: HO.SL 13:48 | PROVIDERS: PCP Internal Medicine; Visit Provider Nurse Practitioner Family | DX: R35.1 Nocturia (principal); R06.83 Snoring | CPT/HCPCS: 95806 ==

== ENCOUNTER → 2025-07-02 14:10 | Outpatient (BNV) | payer OTHER, SELFPAY | PROVIDERS: PCP Internal Medicine; Visit Provider Internal Medicine | DX: R06.83 Snoring (principal) | CPT/HCPCS: 95806 ==

== ENCOUNTER 2025-07-18 11:14 | Outpatient (REF) | payer OTHER, SELFPAY ==
--- NOTE | ~2025-07-18 | US_ITS ---
EXAMINATION: US RETROPERITONEUM HISTORY: R35.1 - Nocturia TECHNIQUE: Real-time grayscale ultrasound imaging of the kidneys was performed and images were reviewed. COMPARISON: There are no prior studies available for comparison. FINDINGS: Right kidney: The right kidney measures 12.2 x 4.8 x 4.9 cm. Renal parenchymal echotexture and thickness are normal. There are no masses. There is slight fullness of the renal pelvis. There is no hydronephrosis or renal calculi. Left Kidney: The left kidney measures 12.3 x 5.5 x 5.6 cm. Renal parenchymal echotexture and thickness are normal. There are no masses. There is no hydronephrosis or renal calculi. The urinary bladder is unremarkable. Bilateral ureteral jets are identified. Before voiding, the urinary bladder measured 12.2 x 9.3 x 9.0 cm, for an estimated volume of 537 mL. After voiding, the urinary bladder measured 4.1 x 2.2 x 4.7 cm, for an estimated volume of 22 mL. US/US retroperitoneal comp IMPRESSION: 1. Unremarkable retroperitoneal ultrasound. 2. Post void bladder residual of 22 mL. Electronically signed by: Kayden Haji MD 07/18/2025 12:42 PM EDT
== END 2025-07-18 11:15 | disposition home or self-care (01) ==
LOC: HO.US 11:14
PROVIDERS: PCP Internal Medicine; Visit Provider Nurse Practitioner Family
DX: R35.1 Nocturia (principal); R35.0 Frequency of micturition; N39.3 Stress incontinence (female) (male)
CPT/HCPCS: 76770

== ENCOUNTER → 2025-07-18 11:15 | Outpatient (BNV) | payer OTHER, SELFPAY | PROVIDERS: PCP Internal Medicine; Visit Provider Radiology Diagnostic Radiology | DX: R35.1 Nocturia (principal) | CPT/HCPCS: 76770 ==

== ENCOUNTER 2025-07-30 12:36 | Outpatient (REF) | payer OTHER, SELFPAY | END 2025-07-30 12:37 | disposition home or self-care (01) | LOC: HO.LAB 12:36 | PROVIDERS: PCP Internal Medicine; Visit Provider Nurse Practitioner Family | DX: R35.1 Nocturia (principal); R35.0 Frequency of micturition; N39.3 Stress incontinence (female) (male); R31.29 Other microscopic hematuria; Z13.89 Encounter for screening for other disorder; Z79.899 Other long term (current) drug therapy | CPT/HCPCS: 81003; 88112; 99212 ==

== ENCOUNTER 2025-07-30 12:36 | Outpatient (AMB) | payer OTHER, SELFPAY ==
--- NOTE | 2025-07-30 12:44 | A.OFFVIS_ITS ---
Intake Visit Reasons: 4m/US Intake Note: Patient is present for 4M/US Urology Medication:NONE Antibiotic Allergy:PENICILLINS Blood Thinner:NONE Avionics Supervisor Required: No Avionics Supervisor Services: Avionics Supervisor Present Avionics Supervisor Name: [id number] Allergies hydroxyzine (HYDROXYZINE) Allergy (Intermediate, Verified 07/30/25 13:15) THROAT TIGHT , dry mouth Penicillins (PENICILLINS) Allergy (Intermediate, Verified 07/30/25 13:15) RASH pollen extracts (POLLEN) Allergy (Intermediate, Verified 07/30/25 13:15) THROAT GETS ITCHY tramadol Allergy (Intermediate, Verified 07/30/25 13:15) sleepiness Medication List - Last Reconciled 07/30/25 by GILDARDO Mims- aripiprazole 2.5 mg PO DAILY buspirone 15 mg PO TID dupilumab (Dupixent) 200 mg (1.14 mL) subcut Q2W 4 weeks escitalopram oxalate mg PO DAILY incontinence pad, liner, disp As directed latex gloves (Latex Gloves, Large) As directed metformin 500 mg PO DAILY rosuvastatin 20 mg PO BEDTIME 90 days underpads (Bed Underpads) As directed HPI Comments Details: Marianna is a very pleasant 59-year-old Kazakh-speaking female patient of Dr. Cee. She has a past medical history of hyperlipidemia, type 2 diabetes, generalized anxiety disorder, depression, migraines, GERD, asthma, and allergies. She presents to the office today for a follow up. Of note, patient was seen approximately 2 months ago for ongoing lower urinary tract symptoms she has been experiencing at which time a retroperitoneal ultrasound and sleep study were ordered for further assessment evaluation. These results were reviewed and communicated with the patient today. Retroperitoneal ultrasound 08/03 noting bilateral kidneys are normal in parenchymal echotexture and thickness. There are no renal masses, nephrolithiasis, or hydronephrosis noted bilaterally. The urinary bladder is unremarkable. Postvoid bladder volume 22 mL. Sleep study no demetrius no sleep apnea. Urine cytology 04/03 Negative for high-grade urothelial carcinoma. She does continue to report urinary frequency, nocturia, and stress incontinence. We did discussed at length potential causes of these urological conditions as well as further treatment options and risks and benefits of these treatment options. She would like to continue with surveillance monitoring as she does feel symptoms are manageable independently. She does report a previous history of 1 vaginal of an average size babies. She reports utilizing approximately 4-5 Samara pads per day. When asked she denies any previous history of nicotine dependence and or workplace chemical exposure. She denies gross/visible hematuria, dysuria, foul smelling urine, changes to urinary stream, flank pain, fever, and or chills. We did discussed potential causes of microscopic hematuria as well as lower urinary tract symptoms patient is experiencing. We discussed further treatment options of these urological conditions and risks and benefits of these treatment options. All questions were answered. She otherwise offers no other issues or concerns at this time. A1c 01/01 6.5, 06/03 6.0 [facility] Medical History Fibromyalgia Hyperlipidemia LDL goal <70 New onset type 2 diabetes mellitus History of mammogram (~06/08/24) Tinnitus Tubular adenoma of colon Vitiligo Left foot pain Physical exam SALOMON (generalized anxiety disorder) Mild recurrent major depression Migraines GERD (gastroesophageal reflux disease) Asthma Cough Chronic allergic rhinitis Moderate persistent asthma Mixed hyperlipidemia Depression with anxiety Surgical History History of colonoscopy (~11/07/24) History of removal of cyst Family History Father CAD (coronary artery disease) Mother Chronic mental illness Stroke Paternal Grandmother Cancer Paternal Aunt Liver cancer Sister Multiple sclerosis Brother ALS (amyotrophic lateral sclerosis) Sister Schizophrenia Family/Other FH: mental illness Social History Household Members: None Housing: Apartment Alcohol intake: never Patient Tobacco Use Status: Never used Tobacco Tobacco use type: Cigarette e-Cigarette/Vaping Use: Never Used Second Hand Smoke Exposure: No service: No Current occupational status: unemployed Sexual orientation: Straight/Heterosexual Gender identity: Female Cognitive needs: No Hearing needs: No Vision needs: Yes Female Reproductive History Menstrual Age of Menarche: 11 Review of Systems Const All systems reviewed & are unremarkable except as noted in HPI and below Physical Exam Const General: cooperative, healthy appearing, comfortable, no acute distress, well developed, alert and awake Orientation/consciousness: patient oriented x3 Limitations: language barrier HEENT Head: Yes normal to inspection, Yes normocephalic and Yes atraumatic Ears: hearing grossly normal bilaterally Eyes General: appearance normal, both eyes and all related structures Neck Neck: Yes normal visual inspection and Yes trachea midline Chest Chest palpation & inspection: normal inspection of the chest Resp Effort & Inspection: normal respiratory effort and able to speak in complete sentences Cardio Rate: regular rate GI Inspection: Yes normal to inspection General: Yes no CVA tenderness Back/Spine/Pelvis Back: no CVA tenderness Skin General skin exam: no rashes or lesions noted Neuro General: patient oriented x3 Extrem General: Yes normal to inspection Psych Appearance: grossly normal and well kempt Mental Status: mental status grossly normal Speech and movement: Normal speech and movement present and Clear speech present Affect: normal affect Attitude: cooperative Thought process: Normal thought process present Thought content: Normal thought content present Insight: Fair insight present (Psych) Judgement: Fair judgement present (Psych) Results AMB Urinalysis, Automated UA Leukoctes 0 Park/uL Last Edit by LILLIE Hawk on 07/30/25 12:58 UA Nitrite Negative Last Edit by LILLIE Hawk on 07/30/25 12:58 UA Urobilinogen 0.2 mg/dL Last Edit by LILLIE Hawk on 07/30/25 12:5 8 UA Protein 15 mg/dL Last Edit by LILLIE Hawk on 07/30/25 12:58 UA pH 6.0 Last Edit by LILLIE Hawk on 07/30/25 12:58 UA Blood 25 Alessandro/uL Last Edit by LILLIE Hawk on 07/30/25 12:58 UA Specific [place] 1.025 Last Edit by LILLIE Hawk on 07/30/25 12: 58 UA Ketone Negative Last Edit by LILLIE Hawk on 07/30/25 12:58 UA Bilirubin 0 mg/dL Last Edit by LILLIE Hawk on 07/30/25 12:58 UA Glucose 0 mg/dL Last Edit by LILLIE Hawk on 07/30/25 12:58 Results Reviewed Results Reviewed: Laboratory Last Values Urine pH (Auto) 6.0 07/30/25 12:57 Specific [place] (Auto) 1.025 07/30/25 12:57 Urine Protein (Auto) 15 mg/dL 07/30/25 12:57 Glucose (UA)(Auto) 0 mg/dL 07/30/25 12:57 Urine Ketones (Auto) Negative 07/30/25 12:57 Urine Blood (Auto) 25 Alessandro/uL 07/30/25 12:57 Urine Nitrite (Auto) Negative 07/30/25 12:57 Urine Bilirubin (Auto) 0 mg/dL 07/30/25 12:57 Urine Urobilinogen (Auto) 0.2 mg/dL 07/30/25 12:57 Leukocyte Esterase (Auto) 0 Park/uL 07/30/25 12:57 Date of Service: 07/18/25 Procedure(s): US retroperitoneal comp comparison. FINDINGS: Right kidney: The right kidney measures 12.2 x 4.8 x 4.9 cm. Renal parenchymal echotexture and thickness are normal. There are no masses. There is slight fullness of the renal pelvis. There is no hydronephrosis or renal calculi. Left Kidney: The left kidney measures 12.3 x 5.5 x 5.6 cm. Renal parenchymal echotexture and thickness are normal. There are no masses. There is no hydronephrosis or renal calculi. The urinary bladder is unremarkable. Bilateral ureteral jets are identified. Before voiding, the urinary bladder measured 12.2 x 9.3 x 9.0 cm, for an estimated volume of 537 mL. After voiding, the urinary bladder measured 4.1 x 2.2 x 4.7 cm, for an estimated volume of 22 mL. IMPRESSION: 1. Unremarkable retroperitoneal ultrasound. 2. Post void bladder residual of 22 mL. Assessment & Plan Assessment & Plan (1) Nocturia: Code(s): R35.1 - Nocturia Category: Medical (2) Urinary frequency: Code(s): R35.0 - Frequency of micturition Category: Medical (3) Stress incontinence: Code(s): N39.3 - Stress incontinence (female) (male) Category: Medical (4) Microscopic hematuria: Code(s): R31.29 - Other microscopic hematuria Category: Medical Plan In office urinalysis results reviewed with the patient today; as noted above; will send for urine cytology. Most recent retroperitoneal ultrasound results reviewed with the patient today; as noted above Recent sleep study results reviewed with the patient today; as noted above. Most recent urine cytology results reviewed with the patient today; as noted above. We did discussed potential causes of as for mentioned urological condition as well as further treatment options and risks and benefits of these treatment options. All questions were answered Will continue with surveillance monitoring Follow-up in 6 months with [facility]; or sooner with any issues, concerns, and or questions. Orders: Orders AMB Urinalysis Automated Today Z13.9 - Encounter for screening, unspecified Urine Cytology Today R31.29 - Other microscopic hematuria Patient Instructions: The patient had an opportunity to ask questions regarding the treatment plan. All questions were answered. Physical exam, labs, and imaging were discussed and reviewed in detail. As well as risks, benefits, and discussion of treatment choices. No major barriers to understanding were identified. The patient expressed understanding and agreement with the above treatment plan. The patient was made aware they should contact our office by phone for worsening of their current condition, the appearance of new symptoms, or with any questions or concerns. Compliance is encouraged with any medications and follow up testing that is ordered. It is a privilege to be allowed the opportunity to participate in? your urological care.? Again, if you have any questions or concerns If you have any questions or concerns please do not hesitate to contact me. The office is [phone]. This note is constructed using voice recognition software. While every effort has been made to ensure accuracy wet roaster errors may have been included. Yours sincerely, LIZBETH Mims Coding Level of Care Code Est Pt Level 3 (15340) Complex EM visit Add On G2211 Diagnoses Nocturia R35.1 Urinary frequency R35.0 Stress incontinence N39.3 Microscopic hematuria R31.29
== END 2025-07-30 13:24 | disposition home or self-care (01) ==
LOC: HO.HUSH 12:38
PROVIDERS: PCP Internal Medicine; Visit Provider Nurse Practitioner Family
DX: R35.1 Nocturia (principal); R35.0 Frequency of micturition; N39.3 Stress incontinence (female) (male); R31.29 Other microscopic hematuria; Z13.9 Encounter for screening, unspecified
CPT/HCPCS: 99213; G2211

== ENCOUNTER 2025-08-28 10:35 | Outpatient (REF) | payer OTHER, SELFPAY ==
--- NOTE | ~2025-08-28 | XR_ITS ---
EXAMINATION: XR SHOULDER, RIGHT CLINICAL INFORMATION: M25.511 - Pain in right shoulder COMPARISON: X-ray 12/23/2023 TECHNIQUE: Two views of the right shoulder. FINDINGS: Mild acromioclavicular arthritis. Glenohumeral articulation is maintained. No acute fracture or dislocation. No abnormal soft tissue calcification. XR/XR shoulder RT min 2V IMPRESSION: Mild glenohumeral arthritis. Electronically signed by: Ruy Baeza MD 08/29/2025 11:23 AM MAYTE KOWALSKI
== END 2025-08-28 10:36 | disposition home or self-care (01) ==
LOC: HO.HOSX 10:35
PROVIDERS: Visit Provider Orthopaedic Surgery
DX: M25.511 Pain in right shoulder (principal); M54.2 Cervicalgia; M75.41 Impingement syndrome of right shoulder
CPT/HCPCS: 73030; 99202

== ENCOUNTER 2025-08-28 12:34 | Outpatient (AMB) | payer OTHER, SELFPAY ==
--- NOTE | 2025-08-28 12:46 | A.OFFVIS_ITS ---
Intake Visit Reasons: [employer]ORER-RT shoulder pain, Neck pain Intake Note: Alejandra is a 59 year old female right hand dominant who presents with progressively worsening neck pain which radiates down her right arm to her right hand. The patient states that she injured her neck approximately 6 months ago when she fell. Since that time she has also had weakness in her right arm. The patient states that at times her right arm will feel ?like electricity?. She has failed the last 6 weeks of conservative treatment which has included Tylenol, anti- inflammatory medicines, a home exercise program and physical therapy exercises. Atmospheric Drier Tender Services: Atmospheric Drier Tender Present (Marycarmen ([id number])) Allergies hydroxyzine (HYDROXYZINE) Allergy (Intermediate, Verified 07/30/25 13:15) THROAT TIGHT , dry mouth Penicillins (PENICILLINS) Allergy (Intermediate, Verified 07/30/25 13:15) RASH pollen extracts (POLLEN) Allergy (Intermediate, Verified 07/30/25 13:15) THROAT GETS ITCHY tramadol Allergy (Intermediate, Verified 07/30/25 13:15) sleepiness Medication List - Last Reconciled 08/28/25 by Fran Pendleton MD aripiprazole 2.5 mg PO DAILY buspirone 15 mg PO TID dupilumab (Dupixent) 200 mg (1.14 mL) subcut Q2W escitalopram oxalate mg PO DAILY incontinence pad, liner, disp As directed latex gloves (Latex Gloves, Large) As directed metformin 500 mg PO DAILY rosuvastatin 20 mg PO BEDTIME 90 days underpads (Bed Underpads) As directed [facility] Medical History Fibromyalgia Hyperlipidemia LDL goal <70 New onset type 2 diabetes mellitus History of mammogram (~06/08/24) Tinnitus Tubular adenoma of colon Vitiligo Left foot pain Physical exam SALOMON (generalized anxiety disorder) Mild recurrent major depression Migraines GERD (gastroesophageal reflux disease) Asthma Cough Chronic allergic rhinitis Moderate persistent asthma Mixed hyperlipidemia Depression with anxiety Surgical History History of colonoscopy (~11/07/24) History of removal of cyst Family History Father CAD (coronary artery disease) Mother Chronic mental illness Stroke Paternal Grandmother Cancer Paternal Aunt Liver cancer Sister Multiple sclerosis Brother ALS (amyotrophic lateral sclerosis) Sister Schizophrenia Family/Other FH: mental illness Social History Household Members: None Housing: Apartment Alcohol intake: never Patient Tobacco Use Status: Never used Tobacco Tobacco use type: Cigarette e-Cigarette/Vaping Use: Never Used Second Hand Smoke Exposure: No service: No Current occupational status: unemployed Sexual orientation: Straight/Heterosexual Gender identity: Female Cognitive needs: No Hearing needs: No Vision needs: Yes Female Reproductive History Menstrual Age of Menarche: 11 Physical Exam Neck Other: Cervical spine examination shows right-sided paraspinal muscle tenderness, pain with range of motion, positive Spurling's test, 4/5 strength with testing of her right biceps and wrist extensors when compared to 5/5 strength on her left side Extrem Other: Right shoulder examination shows slightly decreased range of motion when compared to her left shoulder, 4+ out of 5 strength with supraspinatus testing, positive impingement signs, no instability Results Reviewed Results Reviewed: X-rays of the patient's right shoulder show severe acromioclavicular joint narrowing, a type 2 acromion, no acute bony abnormalities Assessment & Plan Assessment & Plan (1) Neck pain on right side: Code(s): M54.2 - Cervicalgia Category: Medical Plan Ms. Kilgore presents with progressively worsening neck pain which radiates down her right arm as well as associated right arm weakness possibly due to cervical stenosis or a disc herniation. Thus, I will send the patient for an MRI of her cervical spine for further evaluation. She will contact me prior to that time should her symptoms worsen in any way. I also gave her a prescription for a Medrol Dosepak to help with her symptoms in the meantime. The patient also has right shoulder pain due to impingement syndrome. We will hold off on a cortisone injection for now. Feel free to call me at any time should questions regarding her orthopedic management arise. Thank you very much for asking me to see this very friendly patient. I spent 20 minutes in reviewing the patient's records and imaging studies, seeing the patient and documenting in the medical record. Orders: Orders XR shoulder RT min 2V Today M25.511 - Pain in right shoulder MR cervical spine wo con 08/29/25 M54.2 - Cervicalgia Medications: New methylprednisolone (Medrol (Omega)) PO PER PKG DIR 21 ea 0RF Coding Level of Care Code New Pt Level 3 (40060) Complex EM visit Add On G2211 Diagnoses Neck pain on right side M54.2
== END 2025-08-28 13:03 | disposition home or self-care (01) ==
LOC: HO.HOS 12:35
PROVIDERS: PCP Internal Medicine; Visit Provider Orthopaedic Surgery
DX: M54.2 Cervicalgia (principal)
CPT/HCPCS: 99203; G2211

== ENCOUNTER → 2025-08-28 12:38 | Outpatient (BNV) | payer OTHER, SELFPAY | PROVIDERS: Visit Provider Radiology Diagnostic Ultrasound | DX: M19.011 Primary osteoarthritis, right shoulder (principal) | CPT/HCPCS: 73030 ==

== ENCOUNTER → 2025-09-29 09:48 | Outpatient (BNV) | payer OTHER, SELFPAY | PROVIDERS: Visit Provider Radiology Diagnostic Radiology | DX: M48.02 Spinal stenosis, cervical region (principal); M50.922 Unspecified cervical disc disorder at C5-C6 level | CPT/HCPCS: 72141 ==

== ENCOUNTER 2025-09-29 09:49 | Outpatient (REF) | payer OTHER, SELFPAY ==
--- NOTE | ~2025-09-29 | MR_ITS ---
CLINICAL HISTORY: M54.2 - Cervicalgia; RIGHT SIDE NECK PAIN Exam: Nonenhanced MRI cervical spine. Comparison: None. Findings: Cervical vertebral body heights and alignment appear well-maintained. There is slight disc space narrowing at C5-6 with slight disc desiccation. Remaining intervertebral disc heights are reasonably maintained. Signal intensity within the cervical cord appears maintained. Axial images reveal the following: C2-3: No focal disc herniation, spinal or foraminal compromise. C3-4: No focal disc herniation, spinal or foraminal compromise. C4-5: No focal disc herniation, spinal or foraminal compromise. C5-6: Aird-zy-opusflue posterior disc-osteophyte complex results in mild central canal stenoses (9; 17 and 8; 17). There is some bilateral uncovertebral joint hypertrophy resulting in bilateral at least moderate foraminal stenoses. C6-7: No focal disc herniation, spinal or foraminal compromise. Impression: 1. Posterior disc-osteophyte complex and bilateral uncovertebral joint hypertrophy at C5-6 result in mild central canal stenoses and bilateral moderate foraminal stenoses. This document has been electronically signed by: Christian Hernandez MD on 10/01/2025 17:21:27
== END 2025-09-29 09:50 | disposition home or self-care (01) ==
LOC: HO.MRI 09:49
PROVIDERS: Visit Provider Orthopaedic Surgery
DX: M54.2 Cervicalgia (principal)
CPT/HCPCS: 72141

== ENCOUNTER 2025-10-08 11:05 | Outpatient (AMB) | payer OTHER, SELFPAY ==
--- NOTE | 2025-10-08 11:11 | A.OFFPC_ITS ---
Vital Signs 10/08/25 11:14 Height 5 ft 7 in Weight 191 lb BMI 29.9 BP 120/74 Blood Pressure Location Lt brachial Position Sitting Respiration 18 Pulse 75 Pulse Source Pulse Oximeter Temp Source Temporal Artery Scan Pulse Oximetry (%) 97 Oxygen Delivery Method Room Air Intake Visit Reasons: dm Wheel Roller Required: No Accompanied by: Self / Same As Patient Allergies hydroxyzine (HYDROXYZINE) Allergy (Intermediate, Verified 10/08/25 11:34) THROAT TIGHT , dry mouth Penicillins (PENICILLINS) Allergy (Intermediate, Verified 10/08/25 11:34) RASH pollen extracts (POLLEN) Allergy (Intermediate, Verified 10/08/25 11:34) THROAT GETS ITCHY tramadol Allergy (Intermediate, Verified 10/08/25 11:34) sleepiness Medication List - Last Reconciled 10/08/25 by Alejandra Spicer MD aripiprazole 2.5 mg PO DAILY buspirone 15 mg PO TID dupilumab (Dupixent) 200 mg (1.14 mL) subcut Q2W escitalopram oxalate mg PO DAILY incontinence pad, liner, disp As directed latex gloves (Latex Gloves, Large) As directed metformin 500 mg PO DAILY methylprednisolone (Medrol (Omega)) PO PER PKG DIR rosuvastatin 20 mg PO BEDTIME 90 days underpads (Bed Underpads) As directed Tobacco use date assessed: 10/08/25 Dental Screening Dental Screen Date: 10/08/25 Did you have a dental visit in the last 12 months?: Yes Did you have a dental problem in the last 6 months where you did not have access to dental care?: No Was dental information given to patient?: Patient has dentist HPI HPI Comments History of Present Illness Details This is a 59-year-old female with diabetes mellitus type 2, hyperlipidemia, mild recurrent major depression and anxiety that comes today for follow-up on her conditions. A1c within goal being 5.5% today. On statins for hyperlipidemia and her LDL goal should be less than 70. Depression with anxiety well controlled with medications and follow by Psychiatry. She complains of neck pain that radiates to the right arm associated with right arm numbness that started few months ago. MRI of the neck shows arthritis and some stenosis and will be referred to [facility] neuro spine. [facility] Medical History Fibromyalgia Hyperlipidemia LDL goal <70 New onset type 2 diabetes mellitus History of mammogram (~06/08/24) Tinnitus Tubular adenoma of colon Vitiligo Left foot pain Physical exam SALOMON (generalized anxiety disorder) Mild recurrent major depression Migraines GERD (gastroesophageal reflux disease) Asthma Cough Chronic allergic rhinitis Moderate persistent asthma Mixed hyperlipidemia Depression with anxiety Surgical History History of colonoscopy (~11/07/24) History of removal of cyst Family History Father CAD (coronary artery disease) Mother Chronic mental illness Stroke Paternal Grandmother Cancer Paternal Aunt Liver cancer Sister Multiple sclerosis Brother ALS (amyotrophic lateral sclerosis) Sister Schizophrenia Family/Other FH: mental illness Social History Household Members: None Housing: Apartment Alcohol intake: never Patient Tobacco Use Status: Never used Tobacco Tobacco use type: Cigarette e-Cigarette/Vaping Use: Never Used Second Hand Smoke Exposure: No service: No Current occupational status: unemployed Sexual orientation: Straight/Heterosexual Gender identity: Female Cognitive needs: No Hearing needs: No Vision needs: Yes Female Reproductive History Menstrual Age of Menarche: 11 Questionnaire Thrive Questionnaire Date Thrive assessed: 10/08/25 I am a: Patient What is your living situation today?: I have a steady place to live Within the past 12 months, did the food you bought not last and you didn't have the money to get more?: Never true Within the past 12 months, did you worry whether your food would run out before you got money to buy more?: Sometimes True Do you have trouble paying for medicines?: No Do you have trouble getting transportation to medical appointments?: No Do you have trouble paying your heating and electricity bill?: Yes Do you have trouble taking care of your child, family member or friend?: No Do you have trouble with day-to-day activities such as bathing, preparing meals, shopping, managing finances, etc.?: No Are you currently unemployed and looking for a job?: No Are you interested in more education?: No Currently or been in a relationship where the following occur: I choose not to answer THRIVE Score: 2 SALOMON-7 AMB Questionnaire SALOMON-7 Date SALOMON - 7 assessed: 01/16/25 Source: Developed by Drs. Kayden Eldridge, Chelsy Julian, Cholo Garcia and colleagues, with an educational jeannie from [employer]. Review of Systems Const All systems reviewed & are unremarkable except as noted in HPI and below Card Denies chest pain at rest, Denies chest pain with activity, Denies edema, Denies irregular heart rhythm, Denies claudication, Denies dyspnea, Denies dyspnea on exertion, Denies orthopnea, Denies paroxysmal nocturnal dyspnea and Denies slow heart rate Resp Denies cough, Denies dyspnea and Denies dyspnea on exertion Physical exam (Primary Care) Vital Signs: Last Vital Signs Pulse 75 10/08/25 11:14 Resp 18 10/08/25 11:14 BP 120/74 10/08/25 11:14 Pulse Ox 97 10/08/25 11:14 Oxygen Delivery Method Room Air 10/08/25 11:14 BMI result Body Mass Index 29.9 Tobacco/Smoking Status: Tobacco use Status Tobacco use date assessed 10/08/25 10/08/25 11:19 Patient Tobacco Use Status Never used Tobacco 10/08/25 11:12 Tobacco use type Cigarette 10/08/25 11:12 e-Cigarette/Vaping Use Never Used 10/08/25 11:12 Thrive Assessment: Date of Thrive Assessment Date Thrive assessed 10/08/25 10/08/25 11:19 Currently or been in a relationship where the following occur: I choose not to answer Resp Effort & Inspection: normal respiratory effort Auscultation: clear to auscultation bilaterally Cardio Jugular venous distension: no JVD Rate: regular rate Rhythm: regular rhythm Heart sounds: S1 normal heart sound present and S2 normal heart sound present Extrem General: Yes full ROM Coding Level of Care Code Est Pt Level 4 (15350) Diagnoses Mild recurrent major depression F33.0 Hyperlipidemia LDL goal <70 E78.5 Diabetes mellitus E11.9 SALOMON (generalized anxiety disorder) F41.1 Time Spent (min) 22 Assessment & Plan Assessment & Plan (1) Mild recurrent major depression: Code(s): F33.0 - Major depressive disorder, recurrent, mild Category: Medical (2) Hyperlipidemia LDL goal <70: Code(s): E78.5 - Hyperlipidemia, unspecified Category: Medical (3) Diabetes mellitus: Code(s): E11.9 - Type 2 diabetes mellitus without complications Category: Medical (4) SALOMON (generalized anxiety disorder): Code(s): F41.1 - Generalized anxiety disorder Category: Medical Plan Continue same medications. A1c goal is equal or less than 7%. Blood pressure goal is equal or less than 130/80. LDL goal is less than 70. She was referred to Neurosurgery regarding her neck. Orders: Orders AMB Hemoglobin A1c Today Z13.9 - Encounter for screening, unspecified Referrals Neuro Spine Referral M48.02 - Spinal stenosis, cervical region
[2025-10-08 11:14] VITALS: BP 120/74; PULSE 75; RESP 18; O2SAT 97; BMI 29.9
== END 2025-10-08 11:50 | disposition home or self-care (01) ==
LOC: HO.HMCH 11:06
PROVIDERS: PCP Internal Medicine; Visit Provider Internal Medicine
DX: F33.0 Major depressive disorder, recurrent, mild (principal); E78.5 Hyperlipidemia, unspecified; E11.9 Type 2 diabetes mellitus without complications; F41.1 Generalized anxiety disorder